=== PATIENT | male | born 1955 | race Hispanic/Latino ===

== ENCOUNTER 2017-10-17 15:12 | Emergency (ER) | payer MEDICAID ==
[~2017-10-17 15:12] MED LIST: ALLO100T PO; ASPI-555 PO; ATOR40TA69 PO; BUDE10.2 IH; ESOM20CA31 PO; FLUT15.88 NS; IPRAHFA IH; LISI2.5T2 PO; METO-408 PO; MONT10TA24 PO; PREG75 PO; RANI300T4 PO; SERT50TA PO; SIME125C81 PO; TRAZ-144 PO
[2017-10-17 16:31] LABS: BASOPHILS % (AUTO) 0.7 % (0.0-5.0); EOSINOPHILS % (AUTO) 2.5 % (0.0-8.0); LYMPHOCYTES % (AUTO) 26.7 % (21.0-51.0); MEAN CORPUSCULAR HEMOGLOBIN 30.3 pg (27.0-33.0); MEAN CORPUSCULAR HGB CONC 34.7 g/dL (32.0-36.0); MEAN CORPUSCULAR VOLUME 87.2 fL (79-99); MONOCYTES % (AUTO) 6.5 % (3.0-13.0); NEUTROPHILS % (AUTO) 63.6 % (40.0-77.0); NUCLEATED RED BLOOD CELLS 0.1 % (0.0-0.19); PLATELET COUNT (AUTO) 137 K/uL (130-400); RED BLOOD CELL COUNT(AUTO) 4.25 MIL/uL (4.50-6.20); RED CELL DISTRIBUTION WIDTH 13.1 % (11.0-15.5); WHITE BLOOD COUNT (AUTO) 5.8 K/uL (4.8-10.8)
[2017-10-17] MEDS ORDERED: ONDANSETRON HCL MDV 20ML 2 MG/ML VIAL ONE (17:07)
[2017-10-17] MEDS ORDERED: MEPERIDINE-PF 25 MG/ML SYG ONE (17:08)
[2017-10-17 17:10] LABS: POTASSIUM 3.9 mmol/L (3.5-5.1)
[2017-10-17 17:14] LABS: ALBUMIN 3.3 g/dL (3.5-5.0); BILIRUBIN,TOTAL 0.4 mg/dL (0.2-1.0); TOTAL PROTEIN, SERUM 7.7 g/dL (6.0-8.3)
[2017-10-17 17:54] LABS: APPEARANCE,URINE Clear (CLEAR); BILIRUBIN,URINE Negative (NEGATIVE); COLOR,URINE Dark Yellow (YELLOW); GLUCOSE, URINE (UA) >=1000 mg/dL (NEGATIVE); KETONES,URINE Negative (NEGATIVE); LEUKOCYTE ESTERASE ,URINE Negative (NEGATIVE); NITRATE,URINE Negative (NEGATIVE); OCCULT BLOOD,URINE Negative (NEGATIVE); PROTEIN,URINE Negative (NEGATIVE)
[2017-10-17] MEDS ORDERED: MAGNESIUM CITRATE 296 ML SOLUTION ONE (18:01)
[2017-10-17] MEDS ORDERED: BISACODYL 10 MG SUPP.RECT RC ONE (18:01)
[2017-10-17] MEDS ORDERED: LACTULOSE 20 GM/30 ML UDCUP ONE (18:01)
[2017-10-17] MEDS ORDERED: INSULIN HUMULIN R 100 UNIT/ML 3ML ONE (18:02)
[2017-10-17 18:15] LABS: BACTERIA,URINE Rare /HPF (None Seen); MUCUS,URINE Few LPF (None Seen); RBC,URINE 0-1 /HPF (0-1); SQUAMOUS EPITHELIAL CELL,UR Rare /HPF (0-2); WBC,URINE 0-1 /HPF (0-1)
== END 2017-10-17 20:08 | disposition home or self-care (01) ==
LOC: EDH 15:12
DX: K59.00 Constipation, unspecified (principal); R50.9 Fever, unspecified; R11.0 Nausea; I10 Essential (primary) hypertension; E78.5 Hyperlipidemia, unspecified; I25.10 Atherosclerotic heart disease of native coronary artery without angina pectoris; Z88.6 Allergy status to analgesic agent; Z72.0 Tobacco use
CPT/HCPCS: 36415; 74021; 80053; 81001; 82150; 82948; 83690; 85025; 93005; 96374; 96375; 99285; J1815; J2175

== ENCOUNTER 2018-04-14 10:51 | Inpatient (IN) | payer MEDICAID ==
[~2018-04-14] VITALS: Ht 177.8 cm; Wt 113.9 kg
[~2018-04-14 10:51] MED LIST changes: +FLUT15.88 NASAL; -FLUT15.88 NS; -TRAZ-144 PO; +TRAZ-185 PO
[2018-04-14] MEDS ORDERED: SODIUM CHLORIDE 0.9% 1000ML 1,000 ML IV ONE ×2 (11:06→13:16)
[2018-04-14 11:14] LABS: BASOPHILS % (AUTO) 1.5 % (0.0-5.0); EOSINOPHILS % (AUTO) 1.8 % (0.0-8.0); HEMATOCRIT 34.2 % (42-54); MEAN CORPUSCULAR HEMOGLOBIN 31.5 pg (27.0-33.0); MEAN CORPUSCULAR HGB CONC 34.6 g/dL (32.0-36.0); MEAN CORPUSCULAR VOLUME 91.2 fL (79-99); MONOCYTES % (AUTO) 4.8 % (3.0-13.0); NEUTROPHILS % (AUTO) 60.9 % (40.0-77.0); NUCLEATED RED BLOOD CELLS 0.1 % (0.0-0.19); PLATELET COUNT (AUTO) 184 K/uL (130-400); RED BLOOD CELL COUNT(AUTO) 3.75 MIL/uL (4.50-6.20); RED CELL DISTRIBUTION WIDTH 13.7 % (11.0-15.5); WHITE BLOOD COUNT (AUTO) 10.1 K/uL (4.8-10.8)
[2018-04-14 11:23] LABS: BILIRUBIN,TOTAL 0.8 mg/dL (0.2-1.0); CREATININE 1.3 mg/dL (0.5-1.5); POTASSIUM 4.8 mmol/L (3.5-5.1); TOTAL PROTEIN, SERUM 6.5 g/dL (6.0-8.3)
[2018-04-14 11:28] LABS: INR 0.96 (0.85-1.15); PARTIAL THROMBOPLASTIN TIME 22.4 SEC (26.3-35.5); PROTHROMBIN TIME 10.1 SEC (9.6-11.6)
[2018-04-14] MEDS ORDERED: ONDANSETRON HCL 4 MG/2 ML VIAL ONE ×2 (11:28→13:05)
[2018-04-14] MEDS ORDERED: FENTANYL CITRATE PF 50 MCG/1 ML 2ML VIAL ONE ×2 (11:38→13:06)
[2018-04-14] MEDS ORDERED: IOHEXOL-350 75 ML VIAL IV ONE (12:08)
[2018-04-14] MEDS ORDERED: INSULIN HUMULIN R 100 UNIT/ML 3ML ONE (12:44)
[2018-04-14] MEDS ORDERED: ACETAMINOPHEN 325 MG TAB PO PRN ×2 (14:00)
[2018-04-14] MEDS ORDERED: ONDANSETRON HCL MDV 20ML 2 MG/ML VIAL IVP PRN (14:00)
[2018-04-14 15:59] VITALS: BP 121/75
[2018-04-14] MEDS: HYDROMORPHONE 1 MG/1 ML AMP IVP PRN ×2 (17:15→21:16)
[2018-04-14] MEDS: SODIUM CHLORIDE 0.9% 1000ML 1,000 ML IV SCH ×2 (17:15→22:00)
[2018-04-14] MEDS ORDERED: LISI10TA7 PO (17:53)
[2018-04-14] MEDS ORDERED: ROPI1TAB11 PO (17:53)
[2018-04-14] MEDS ORDERED: ACET650T9 PO (17:53)
[2018-04-14] MEDS ORDERED: METO-391 PO (17:53)
[2018-04-14] MEDS ORDERED: BUDE10.2 IH (17:53)
[2018-04-14] MEDS ORDERED: TERB250T51 PO (17:53)
[2018-04-14] MEDS ORDERED: PROB500T26 PO (17:53)
[2018-04-14] MEDS ORDERED: GABA-531 PO (17:53)
[2018-04-14] MEDS ORDERED: INDO50CA12 PO (17:53)
[2018-04-14] MEDS ORDERED: IPRAHFA IH (17:53)
[2018-04-14] MEDS ORDERED: CLOP75TA32 PO (17:53)
[2018-04-14 19:27] VITALS: BP 127/77
[2018-04-14 23:32] VITALS: BP 127/76
[2018-04-15] MEDS: SODIUM CHLORIDE 0.9% 1000ML 1,000 ML IV SCH ×2 (00:07→09:21)
[2018-04-15] MEDS: HYDROMORPHONE 1 MG/1 ML AMP IVP PRN ×5 (00:22→20:45)
[2018-04-15 04:09] VITALS: BP 117/78
[2018-04-15 07:00] VITALS: BP 125/57
[2018-04-15] MEDS ORDERED: ACETAMINOPHEN EXTENDED RELEASE 650 MG TABLET PO PRN (10:45)
[2018-04-15 11:00] VITALS: BP 116/55
[2018-04-15] MEDS: IPRATROPIUM/ALBUTEROL SULFATE 3 ML SOLUTION IH SCH ×2 (11:58→19:11)
[2018-04-15] MEDS ORDERED: IPRATROPIUM 0.5 MG/2.5 ML INH IH SCH (12:00)
[2018-04-15] MEDS ORDERED: ALBUTEROL SULFATE 0.083% 2.5 MG/3 ML INH IH SCH (12:00)
[2018-04-15] MEDS: INSULIN HUMULIN R 100 UNIT/ML 3ML SQ SCH ×3 (12:24→20:57)
[2018-04-15 16:00] VITALS: BP 110/62
[2018-04-15 19:18] VITALS: BP 132/75
[2018-04-15] MEDS: BUDESONIDE 0.5 MG/2 ML INH IH SCH (19:34)
[2018-04-15] MEDS: METOPROLOL TARTRATE 25 MG TAB PO SCH (20:21)
[2018-04-15] MEDS: ROPINIROLE HCL 1 MG TABLET PO SCH (20:21)
[2018-04-15] MEDS: PREGABALIN 75 MG CAPSULE PO SCH (20:21)
[2018-04-15] MEDS: ATORVASTATIN CALCIUM 40 MG TABLET PO SCH (20:21)
[2018-04-15] MEDS: TRAZODONE HCL 50 MG TAB PO SCH (20:21)
[2018-04-15] MEDS: MONTELUKAST SODIUM 10 MG TAB PO SCH (20:21)
[2018-04-15] MEDS: FLUTICASONE PROPIONATE 50MCG/SPRAY 16 GM BOTTLE NS SCH (20:39)
[2018-04-15 23:42] VITALS: BP 114/68
[2018-04-16] MEDS: IPRATROPIUM/ALBUTEROL SULFATE 3 ML SOLUTION IH SCH ×5 (01:17→23:50)
[2018-04-16] MEDS: HYDROMORPHONE 1 MG/1 ML AMP IVP PRN ×2 (02:27→20:03)
[2018-04-16 04:27] LABS: MEAN CORPUSCULAR HEMOGLOBIN 31.4 pg (27.0-33.0); MEAN CORPUSCULAR HGB CONC 34.5 g/dL (32.0-36.0); PLATELET COUNT (AUTO) 88 K/uL (130-400); RED BLOOD CELL COUNT(AUTO) 2.29 MIL/uL (4.50-6.20); WHITE BLOOD COUNT (AUTO) 5.1 K/uL (4.8-10.8)
[2018-04-16 04:35] LABS: HEMATOCRIT 20.8 % (42-54)
[2018-04-16 04:37] VITALS: BP 108/48
[2018-04-16 04:43] LABS: CREATININE 0.8 mg/dL (0.5-1.5); PHOSPHORUS 2.2 mg/dL (2.5-4.9); POTASSIUM 3.6 mmol/L (3.5-5.1)
[2018-04-16 05:02] LABS: BAND NEUTROPHILS % (MANUAL) 2 % (0-2); LYMPHOCYTES % (MANUAL) 10 % (22-44); MAN.DIFF COMMENT-IMPRESSION MANUAL DIFFERENTIAL; MONOCYTES % (MANUAL) 6 % (2-9); PLATELET MORPHOLOGY COMMENT DECREASED; SEGMENTED NEUTROPHILS % 82 % (40-70)
[2018-04-16] MEDS: INSULIN HUMULIN R 100 UNIT/ML 3ML SQ SCH ×4 (06:27→20:31)
[2018-04-16 07:00] VITALS: BP 125/60
[2018-04-16] MEDS: BUDESONIDE 0.5 MG/2 ML INH IH SCH ×2 (07:01→19:19)
[2018-04-16 07:09] LABS: MEAN CORPUSCULAR HEMOGLOBIN 31.2 pg (27.0-33.0); MEAN CORPUSCULAR HGB CONC 34.6 g/dL (32.0-36.0); MEAN CORPUSCULAR VOLUME 90.1 fL (79-99); PLATELET COUNT (AUTO) 90 K/uL (130-400); RED BLOOD CELL COUNT(AUTO) 2.27 MIL/uL (4.50-6.20); RED CELL DISTRIBUTION WIDTH 13.9 % (11.0-15.5); WHITE BLOOD COUNT (AUTO) 4.6 K/uL (4.8-10.8)
[2018-04-16 07:13] LABS: HEMATOCRIT 20.4 % (42-54)
[2018-04-16 07:20] LABS: INR 0.93 (0.85-1.15); PARTIAL THROMBOPLASTIN TIME 28.9 SEC (26.3-35.5); PROTHROMBIN TIME 9.8 SEC (9.6-11.6)
[2018-04-16] MEDS ORDERED: ASPIRIN 81MG TAB.CHEW PO SCH (08:00)
[2018-04-16] MEDS: PREGABALIN 75 MG CAPSULE PO SCH ×2 (08:20→20:02)
[2018-04-16] MEDS: SERTRALINE HCL 50 MG TABLET PO SCH (08:20)
[2018-04-16] MEDS: LACTULOSE 20 GM/30 ML UDCUP PO PRN (08:20)
[2018-04-16] MEDS: METOPROLOL TARTRATE 25 MG TAB PO SCH ×2 (08:20→20:03)
[2018-04-16] MEDS: PANTOPRAZOLE SODIUM 40 MG TABLET.DR PO SCH (08:20)
[2018-04-16] MEDS: LISINOPRIL 10 MG TABLET PO SCH (08:20)
[2018-04-16] MEDS: **HM** TERBINAFINE 250MG PO SCH (08:22)
[2018-04-16 11:00] VITALS: BP 113/59
[2018-04-16] MEDS ORDERED: IOHEXOL-350 75 ML VIAL IV ONE (14:56)
[2018-04-16 16:00] VITALS: BP 119/67
[2018-04-16 19:28] VITALS: BP 119/61
[2018-04-16] MEDS: MONTELUKAST SODIUM 10 MG TAB PO SCH (20:02)
[2018-04-16] MEDS: ROPINIROLE HCL 1 MG TABLET PO SCH (20:02)
[2018-04-16] MEDS: TRAZODONE HCL 50 MG TAB PO SCH (20:03)
[2018-04-16] MEDS: ATORVASTATIN CALCIUM 40 MG TABLET PO SCH (20:03)
[2018-04-16] MEDS: FLUTICASONE PROPIONATE 50MCG/SPRAY 16 GM BOTTLE NS SCH (20:17)
[2018-04-16 23:42] VITALS: BP 100/61
[2018-04-17] MEDS: HYDROMORPHONE 1 MG/1 ML AMP IVP PRN ×5 (00:56→23:35)
[2018-04-17 03:31] LABS: MEAN CORPUSCULAR HEMOGLOBIN 31.1 pg (27.0-33.0); MEAN CORPUSCULAR HGB CONC 34.3 g/dL (32.0-36.0); MEAN CORPUSCULAR VOLUME 90.7 fL (79-99); NUCLEATED RED BLOOD CELLS 0.2 % (0.0-0.19); PLATELET COUNT (AUTO) 83 K/uL (130-400); RED BLOOD CELL COUNT(AUTO) 2.24 MIL/uL (4.50-6.20); RED CELL DISTRIBUTION WIDTH 13.8 % (11.0-15.5); WHITE BLOOD COUNT (AUTO) 5.3 K/uL (4.8-10.8)
[2018-04-17 03:40] LABS: HEMATOCRIT 20.3 % (42-54)
[2018-04-17 04:00] VITALS: BP 115/65
[2018-04-17 04:00] LABS: BAND NEUTROPHILS % (MANUAL) 2 % (0-2); EOSINOPHILS % (MANUAL) 2 % (1-6); LYMPHOCYTES % (MANUAL) 10 % (22-44); MONOCYTES % (MANUAL) 6 % (2-9); SEGMENTED NEUTROPHILS % 80 % (40-70)
[2018-04-17 04:01] LABS: MAN.DIFF COMMENT-IMPRESSION MANUAL DIFFERENTIAL; PLATELET MORPHOLOGY COMMENT DECREASED
[2018-04-17] MEDS: IPRATROPIUM/ALBUTEROL SULFATE 3 ML SOLUTION IH SCH ×4 (05:30→23:17)
[2018-04-17] MEDS: BUDESONIDE 0.5 MG/2 ML INH IH SCH ×2 (05:31→18:30)
[2018-04-17] MEDS: INSULIN HUMULIN R 100 UNIT/ML 3ML SQ SCH ×4 (06:30→22:14)
[2018-04-17 07:00] VITALS: BP 121/66
[2018-04-17] MEDS: **HM** TERBINAFINE 250MG PO SCH (09:00)
[2018-04-17] MEDS: LISINOPRIL 10 MG TABLET PO SCH (09:11)
[2018-04-17] MEDS: PREGABALIN 75 MG CAPSULE PO SCH ×2 (09:11→20:48)
[2018-04-17] MEDS: METOPROLOL TARTRATE 25 MG TAB PO SCH ×2 (09:11→20:48)
[2018-04-17] MEDS: SERTRALINE HCL 50 MG TABLET PO SCH (09:12)
[2018-04-17] MEDS: PANTOPRAZOLE SODIUM 40 MG TABLET.DR PO SCH (09:12)
[2018-04-17 11:00] VITALS: BP 107/61
[2018-04-17] MEDS ORDERED: COMPOUND IV MISC 1 EACH IVSOLN MISC PRN (11:30)
[2018-04-17] MEDS: LACTULOSE 20 GM/30 ML UDCUP PO PRN (14:46)
[2018-04-17 16:00] VITALS: BP 121/68
[2018-04-17 20:00] VITALS: BP 120/68
[2018-04-17] MEDS: TRAZODONE HCL 50 MG TAB PO SCH (20:48)
[2018-04-17] MEDS: ATORVASTATIN CALCIUM 40 MG TABLET PO SCH (20:48)
[2018-04-17] MEDS: MONTELUKAST SODIUM 10 MG TAB PO SCH (20:48)
[2018-04-17] MEDS: FLUTICASONE PROPIONATE 50MCG/SPRAY 16 GM BOTTLE NS SCH (20:56)
[2018-04-17] MEDS: ROPINIROLE HCL 1 MG TABLET PO SCH (20:56)
[2018-04-17 23:00] VITALS: BP 128/71
[2018-04-18 03:00] VITALS: BP 107/58
[2018-04-18 03:36] LABS: MEAN CORPUSCULAR HEMOGLOBIN 31.2 pg (27.0-33.0); MEAN CORPUSCULAR HGB CONC 34.4 g/dL (32.0-36.0); MEAN CORPUSCULAR VOLUME 90.9 fL (79-99); NUCLEATED RED BLOOD CELLS 0.2 % (0.0-0.19); PLATELET COUNT (AUTO) 111 K/uL (130-400); RED BLOOD CELL COUNT(AUTO) 2.26 MIL/uL (4.50-6.20); WHITE BLOOD COUNT (AUTO) 4.7 K/uL (4.8-10.8)
[2018-04-18 03:38] LABS: HEMATOCRIT 20.6 % (42-54)
[2018-04-18] MEDS: HYDROMORPHONE 1 MG/1 ML AMP IVP PRN (03:46)
[2018-04-18 03:51] LABS: BAND NEUTROPHILS % (MANUAL) 12 % (0-2); LYMPHOCYTES % (MANUAL) 20 % (22-44); MAN.DIFF COMMENT-IMPRESSION MANUAL DIFFERENTIAL; MONOCYTES % (MANUAL) 4 % (2-9); PLATELET MORPHOLOGY COMMENT SLIGHTLY DECREASED; SEGMENTED NEUTROPHILS % 64 % (40-70)
[2018-04-18] MEDS: INSULIN HUMULIN R 100 UNIT/ML 3ML SQ SCH (05:36)
[2018-04-18] MEDS: BUDESONIDE 0.5 MG/2 ML INH IH SCH (06:01)
[2018-04-18] MEDS: IPRATROPIUM/ALBUTEROL SULFATE 3 ML SOLUTION IH SCH (06:01)
[2018-04-18 07:00] VITALS: BP 107/58
[2018-04-18] MEDS: SERTRALINE HCL 50 MG TABLET PO SCH (08:36)
[2018-04-18] MEDS: PREGABALIN 75 MG CAPSULE PO SCH (08:36)
[2018-04-18] MEDS: METOPROLOL TARTRATE 25 MG TAB PO SCH (08:36)
[2018-04-18] MEDS: LISINOPRIL 10 MG TABLET PO SCH (08:36)
[2018-04-18] MEDS: PANTOPRAZOLE SODIUM 40 MG TABLET.DR PO SCH (08:36)
[2018-04-18] MEDS ORDERED: TRAMADOL HCL 50 MG TABLET PO SCH (09:00)
[2018-04-18] MEDS ORDERED: IRON SUCROSE COMPLEX 100 MG in SODIUM CHLORIDE 0.9% 50 ML IV SCH (09:00)
[2018-04-26] MEDS ORDERED: IPRATROPIUM/ALBUTEROL SULFATE 3 ML SOLUTION IH ONE (21:16)
== END 2018-04-18 09:50 | disposition home or self-care (01) | DRG 663 ==
LOC: EDH 10:51 → EDHIP 10:52 → 2DH 15:49
PROVIDERS: ADMIT Internal Medicine Nephrology; ATTEND Internal Medicine Nephrology
DX: S36.039A Unspecified laceration of spleen, initial encounter (principal); S36.113A Laceration of liver, unspecified degree, initial encounter; E11.65 Type 2 diabetes mellitus with hyperglycemia; I25.10 Atherosclerotic heart disease of native coronary artery without angina pectoris; I10 Essential (primary) hypertension; E78.00 Pure hypercholesterolemia, unspecified; J44.9 Chronic obstructive pulmonary disease, unspecified; Z82.49 Family history of ischemic heart disease and other diseases of the circulatory system; D64.9 Anemia, unspecified
CPT/HCPCS: 36415; 71045; 73030; 74177; 74178; 80048; 80053; 82550; 82948; 83690; 84100; 84484; 85025; 85027; 85610; 85730; 86850; 86900; 86901; 93005; 94640; 94664; 97039; 99291; A6250; J1170; J1756; J1815; J2405; J3010; J7030; Q9967

== ENCOUNTER 2019-05-18 19:33 | Observation (INO) | payer MEDICAID, OTHER ==
[~2019-05-18] VITALS: Ht 177.8 cm; Wt 114.8 kg
[~2019-05-18 19:33] MED LIST changes: +ACET650T9 PO; -ALLO100T PO; +CLOP75TA32 PO; +FLUT15.845 NASAL; -FLUT15.88 NASAL; +GABA-531 PO; +LISI10TA7 PO; -LISI2.5T2 PO; +METO-391 PO; -METO-408 PO; -RANI300T4 PO; +ROPI1TAB11 PO; -SIME125C81 PO; +TERB250T51 PO
[2019-05-18] MEDS ORDERED: NITROGLYCERIN 0.4 MG SL TAB SL ONE (19:52)
[2019-05-18 20:02] LABS: BASOPHILS % (AUTO) 1.6 % (0.0-5.0); EOSINOPHILS % (AUTO) 2.2 % (0.0-8.0); HEMATOCRIT 38.5 % (42-54); LYMPHOCYTES % (AUTO) 29.8 % (21.0-51.0); MEAN CORPUSCULAR HGB CONC 36.9 g/dL (32.0-36.0); MEAN CORPUSCULAR VOLUME 91.9 fL (79-99); MONOCYTES % (AUTO) 4.8 % (3.0-13.0); NEUTROPHILS % (AUTO) 61.6 % (40.0-77.0); PLATELET COUNT (AUTO) 140 K/uL (130-400); RED BLOOD CELL COUNT(AUTO) 4.19 MIL/uL (4.50-6.20); RED CELL DISTRIBUTION WIDTH 13.2 % (11.0-15.5); WHITE BLOOD COUNT (AUTO) 6.6 K/uL (4.8-10.8)
[2019-05-18 20:17] LABS: PARTIAL THROMBOPLASTIN TIME 29.2 SEC (26.3-35.5)
[2019-05-18 20:26] LABS: B-TYPE NATRIURETIC PEPTIDE 25 pg/mL (0-100)
[2019-05-18 20:27] LABS: ALBUMIN 3.3 g/dL (3.5-5.0); BILIRUBIN,TOTAL 0.6 mg/dL (0.2-1.0); POTASSIUM 4.1 mmol/L (3.5-5.1)
[2019-05-18 21:02] LABS: CREATININE 0.7 mg/dL (0.5-1.5); TOTAL PROTEIN, SERUM 6.5 g/dL (6.0-8.3)
[2019-05-18] MEDS ORDERED: ONDANSETRON HCL 4 MG/2 ML VIAL ONE (21:43)
[2019-05-18] MEDS ORDERED: MORPHINE SULFATE 4 MG/1ML SYG ONE (21:43)
[2019-05-19 01:30] VITALS: BP 137/79
[2019-05-19] MEDS ORDERED: GLYB5TAB8 PO (01:48)
[2019-05-19] MEDS ORDERED: LISI-613 PO (01:48)
[2019-05-19] MEDS ORDERED: NITR0.4T50 SL (01:48)
[2019-05-19] MEDS ORDERED: TRAZ-185 PO (01:48)
[2019-05-19] MEDS ORDERED: GABA-533 PO (01:48)
[2019-05-19 04:21] VITALS: BP 136/76
[2019-05-19 06:38] LABS: CREATINE KINASE, TOTAL 32 U/L (21-232); MYOGLOBIN 33 ng/mL (10-92); TROPONIN I < 0.04 ng/mL (0.00-0.06)
[2019-05-19 08:00] VITALS: BP 133/80
[2019-05-19 11:00] VITALS: BP 139/79
[2019-05-19] MEDS ORDERED: REGADENOSON 0.4 MG/5 ML PF SYG IVP SCH (11:00)
[2019-05-19] MEDS ORDERED: NITROGLYCERIN 0.4 MG SL TAB SL SCH (13:30)
[2019-05-19] MEDS ORDERED: ACETAMINOPHEN EXTENDED RELEASE 650 MG TABLET PO PRN (13:30)
[2019-05-19] MEDS ORDERED: GABAPENTIN 100 MG CAPSULE PO SCH (14:00)
[2019-05-19 16:00] VITALS: BP 132/82
[2019-05-19] MEDS ORDERED: IPRATROPIUM 0.5 MG/2.5 ML INH IH SCH (18:00)
[2019-05-19] MEDS ORDERED: TRAZODONE HCL 50 MG TAB PO SCH (21:00)
[2019-05-19] MEDS ORDERED: METOPROLOL TARTRATE 25 MG TAB PO SCH (21:00)
[2019-05-20] MEDS ORDERED: SERTRALINE HCL 50 MG TABLET PO SCH (09:00)
[2019-05-20] MEDS ORDERED: PANTOPRAZOLE SODIUM 40 MG TABLET.DR PO SCH (09:00)
[2019-05-20] MEDS ORDERED: IPRATROPIUM BROMIDE IH SCH (09:00)
[2019-05-20] MEDS ORDERED: CLOPIDOGREL BISULFATE 75 MG TAB PO SCH (09:00)
[2019-05-20] MEDS ORDERED: LISINOPRIL 20 MG TABLET PO SCH (09:00)
== END 2019-05-19 18:55 | disposition home or self-care (01) ==
LOC: EDH 19:33 → EDHIP 19:34 → 4DH 05-19 01:20
PROVIDERS: ADMIT Internal Medicine Nephrology; ATTEND Internal Medicine Nephrology
DX: I25.110 Atherosclerotic heart disease of native coronary artery with unstable angina pectoris (principal); R07.89 Other chest pain; E11.9 Type 2 diabetes mellitus without complications; I10 Essential (primary) hypertension; E78.00 Pure hypercholesterolemia, unspecified; E78.5 Hyperlipidemia, unspecified; E87.70 Fluid overload, unspecified; F17.200 Nicotine dependence, unspecified, uncomplicated; Z95.1 Presence of aortocoronary bypass graft; Z79.82 Long term (current) use of aspirin; Z79.01 Long term (current) use of anticoagulants; Z79.899 Other long term (current) drug therapy; Z88.6 Allergy status to analgesic agent; Z88.8 Allergy status to other drugs, medicaments and biological substances
CPT/HCPCS: 36415 ×2; 71045; 78452; 80053; 82550 ×2; 82948 ×3; 83874; 83880; 84484 ×2; 85025; 85610; 85730; 93005; 93017; 94640; 94664; 99284; A9500 ×2; G0378 ×19; J2270; J2405; J2785; 96374

== ENCOUNTER 2019-07-12 17:53 | Inpatient (IN) | payer SELFPAY ==
[~2019-07-12] VITALS: Ht 177.8 cm; Wt 108.5 kg
[~2019-07-12 17:53] MED LIST changes: -GABA-531 PO; +GABA-533 PO; +GLYB5TAB8 PO; +LISI-613 PO; -LISI10TA7 PO; +NITR0.4T50 SL; -PREG75 PO; -ROPI1TAB11 PO; -TERB250T51 PO
[2019-07-12 18:44] LABS: APPEARANCE,URINE Clear (CLEAR); BILIRUBIN,URINE Negative (NEGATIVE); COLOR,URINE Yellow (YELLOW); GLUCOSE, URINE (UA) >=1000 mg/dL (NEGATIVE); KETONES,URINE Negative (NEGATIVE); LEUKOCYTE ESTERASE ,URINE Negative (NEGATIVE); NITRATE,URINE Negative (NEGATIVE); OCCULT BLOOD,URINE Negative (NEGATIVE); PROTEIN,URINE Negative (NEGATIVE); UROBILINOGEN,URINE 0.2 mg/dL (0.2-1.0)
[2019-07-12 18:49] LABS: BASOPHILS % (AUTO) 0.8 % (0.0-5.0); EOSINOPHILS % (AUTO) 1.6 % (0.0-8.0); HEMATOCRIT 37.5 % (42-54); MONOCYTES % (AUTO) 7.6 % (3.0-13.0); NEUTROPHILS % (AUTO) 66.2 % (40.0-77.0); PLATELET COUNT (AUTO) 148 K/uL (130-400); RED BLOOD CELL COUNT(AUTO) 4.26 MIL/uL (4.50-6.20); RED CELL DISTRIBUTION WIDTH 12.8 % (11.0-15.5); WHITE BLOOD COUNT (AUTO) 4.9 K/uL (4.8-10.8)
[2019-07-12 18:51] LABS: AMPHET/METH SCREEN,URINE NEGATIVE (NEGATIVE); BARBITURATE SCREEN, URINE NEGATIVE (NEGATIVE); BENZODIAZEPINES SCREEN,URINE NEGATIVE (NEGATIVE); CANNABINOID SCREEN,URINE NEGATIVE (NEGATIVE); COCAINE SCREEN,URINE POSITIVE (NEGATIVE); OPIATE SCREEN,URINE NEGATIVE (NEGATIVE); PHENCYCLIDINE SCREEN,URINE NEGATIVE (NEGATIVE)
[2019-07-12 19:03] LABS: BACTERIA,URINE None Seen /HPF (None Seen); MUCUS,URINE Rare LPF (None Seen); RBC,URINE 0-1 /HPF (0-1); SQUAMOUS EPITHELIAL CELL,UR 0-2 /HPF (0-2); WBC,URINE 0-1 /HPF (0-1)
[2019-07-12 19:08] LABS: B-TYPE NATRIURETIC PEPTIDE 10 pg/mL (0-100)
[2019-07-12 19:10] LABS: ALBUMIN 3.1 g/dL (3.5-5.0); BILIRUBIN,TOTAL 1.2 mg/dL (0.2-1.0)
[2019-07-12] MEDS ORDERED: SODIUM CHLORIDE 0.9% 1000ML 1,000 ML IV ONE ×2 (19:10→19:59)
[2019-07-12] MEDS ORDERED: INSULIN HUMULIN R 100 UNIT/ML 3ML ONE ×2 (19:10→22:05)
[2019-07-12 19:28] LABS: POTASSIUM 6.3 mmol/L (3.5-5.1)
[2019-07-12 19:51] LABS: MEAN CORPUSCULAR HEMOGLOBIN 29.7 pg (27.0-33.0); MEAN CORPUSCULAR HGB CONC 33.6 g/dL (32.0-36.0)
[2019-07-12 19:59] LABS: TOTAL PROTEIN, SERUM 6.4 g/dL (6.0-8.3)
[2019-07-12 21:15] LABS: POTASSIUM 5.7 mmol/L (3.5-5.1)
[2019-07-12 22:45] LABS: PROTHROMBIN TIME 11.1 SEC (9.6-11.6)
[2019-07-12 22:46] LABS: INR 0.94 (0.85-1.15); PARTIAL THROMBOPLASTIN TIME 32.3 SEC (26.3-35.5)
[2019-07-13] VITALS (7 sets, daily range): BP systolic 114–143; BP diastolic 60–87
[2019-07-13] MEDS ORDERED: ONDANSETRON HCL 4 MG/2 ML VIAL IVP PRN (05:45)
[2019-07-13] MEDS: LACTATED RINGERS 1000ML 1,000 ML IV SCH ×3 (06:07→19:05)
[2019-07-13] MEDS: ACETAMINOPHEN 325 MG TAB PO PRN ×2 (06:11→13:04)
[2019-07-13 06:58] LABS: CREATINE KINASE, TOTAL 44 U/L (21-232); MYOGLOBIN 26 ng/mL (10-92); TROPONIN I < 0.04 ng/mL (0.00-0.06)
[2019-07-13 07:40] LABS: ALBUMIN 2.8 g/dL (3.5-5.0); BILIRUBIN,TOTAL 0.8 mg/dL (0.2-1.0)
[2019-07-13 08:35] LABS: CREATININE 0.6 mg/dL (0.5-1.5); TOTAL PROTEIN, SERUM 5.6 g/dL (6.0-8.3)
[2019-07-13] MEDS: ASPIRIN 81MG TAB.CHEW PO SCH (08:46)
[2019-07-13] MEDS: PANTOPRAZOLE SODIUM 40 MG TABLET.DR PO SCH (08:47)
[2019-07-13 10:44] LABS: CREATINE KINASE, TOTAL 42 U/L (21-232); MYOGLOBIN 31 ng/mL (10-92); TROPONIN I < 0.04 ng/mL (0.00-0.06)
--- NOTE | 2019-07-13 14:46 | NUR ---
DC PLAN VISITED WITH PATIENT. PATIENT LIVES WITH SPOUSE. INDEPENDENT ABLE TO PERFORM ADL'S. PATIENT HAS NO SERVICES OR DME'S. FEELS SAFE TO RETURN HOME. GAVE PATIENT LOW INCOME PACKET [facility] CLINICS AND FOR MEDICATIONS. ACCORDING TO PATIENT HE WILL GET INSURANCE ON THE . PATIENT CURRENTLY HAS DISABILITY CHECK WHICH MAKES HIM OVER INCOME FOR MEDICAID BUT HE LOOSES A PORTION TO BACK CHILD SUPPORT. Addendum: 07/13/19 at 1447 by EMMY WISE RN CM Amended: Links added.
--- NOTE | 2019-07-13 22:00 | NUR ---
elevated blood glucose paged marina mcleod automotive sales professional for dr. jordan patients glucose in >300s all day and no coverage ordered shavon mcleod returned call but call dropped before orders received will repage
--- NOTE | 2019-07-13 22:52 | NUR ---
dr shavon mcleod paged for 3rd time since call drop answering service repaged, sent text message and tried connecting call directly to shavon mcleod cell no response
[2019-07-14] MEDS: LACTATED RINGERS 1000ML 1,000 ML IV SCH ×2 (01:45→08:25)
[2019-07-14 03:00] VITALS: BP 120/66
[2019-07-14 04:53] LABS: HEMATOCRIT 37.5 % (42-54); MEAN CORPUSCULAR HEMOGLOBIN 32.5 pg (27.0-33.0); MEAN CORPUSCULAR HGB CONC 35.7 g/dL (32.0-36.0); PLATELET COUNT (AUTO) 110 K/uL (130-400); RED BLOOD CELL COUNT(AUTO) 4.12 MIL/uL (4.50-6.20); RED CELL DISTRIBUTION WIDTH 12.7 % (11.0-15.5); WHITE BLOOD COUNT (AUTO) 5.1 K/uL (4.8-10.8)
[2019-07-14 05:20] LABS: POTASSIUM 3.9 mmol/L (3.5-5.1)
[2019-07-14 05:47] LABS: HEMOGLOBIN A1C 13.4 % (4.0-6.0)
[2019-07-14 06:00] LABS: CREATININE 0.6 mg/dL (0.5-1.5)
[2019-07-14] MEDS: INSULIN HUMULIN R 100 UNIT/ML 3ML SQ SCH ×2 (07:30→07:37)
[2019-07-14] MEDS: PANTOPRAZOLE SODIUM 40 MG TABLET.DR PO SCH (07:46)
[2019-07-14] MEDS: ASPIRIN 81MG TAB.CHEW PO SCH (07:46)
--- NOTE | 2019-07-14 07:50 | NUR ---
ASSESSMENT PT IS AAOX3 DENIES CP DENIES SOB DENIES AT THIS TIME RESTING IN BED. VISITOR IS AT BEDSIDE, CALL LIGHT WITHIN REACH. STATES HE WANTS TO GO HOME AMA, AMA PAPER PROVIDED FOR HIM TO SIGN. HE NOW STATES HE WILL WAIT TILL LATER TO SEE WHAT THE DOCTOR SAYS WHEN HE ROUNDS. WILL NOT LEAVE AMA OF YET. VISITOR REMAINS AT BEDSIDE. CALL LIGHT WITHIN REACH.
[2019-07-14 08:12] VITALS: BP 150/82
--- NOTE | 2019-07-14 11:50 | NUR ---
MD ROUNDS / AMA DR Annemarie MURILLO ROUNDED, SAW PATIENT. PATIENT STATES HE WANTS TO LEAVE AMA, DR Annemarie MURILLO TOLD PATIENT THAT'S HIS CHOICE. PATIENT AGREED TO LEAVE AMA. PIV REMOVED CATH TIP INTACT, TELE PACK REMOVED. AMA FORM SIGNED. DR Annemarie MURILLO SIGNED AMA FORM WELL. PATIENT AMBULATED DOWNSTAIRS WITH VISITOR.
[2019-07-14 11:51] VITALS: BP 124/69
== END 2019-07-14 12:23 | disposition left against medical advice (07) | DRG 313 ==
LOC: EDH 17:53 → EDHIP 17:54 → 2AH 07-13 00:09
PROVIDERS: ADMIT Internal Medicine Nephrology; ATTEND Internal Medicine Nephrology
DX: R07.89 Other chest pain (principal); E87.1 Hypo-osmolality and hyponatremia; E11.9 Type 2 diabetes mellitus without complications; E78.5 Hyperlipidemia, unspecified; F14.10 Cocaine abuse, uncomplicated; I10 Essential (primary) hypertension; M19.90 Unspecified osteoarthritis, unspecified site; E87.5 Hyperkalemia; I25.10 Atherosclerotic heart disease of native coronary artery without angina pectoris; Z87.891 Personal history of nicotine dependence; Z90.81 Acquired absence of spleen; Z91.19 Patient's noncompliance with other medical treatment and regimen; Z95.1 Presence of aortocoronary bypass graft; Z53.29 Procedure and treatment not carried out because of patient's decision for other reasons
CPT/HCPCS: 36415; 70450; 72125; 74176; 76700; 80048; 80053; 80061; 80305; 81001; 82010; 82550; 82948; 83036; 83874; 83880; 84484; 85025; 85027; 85610; 85730; 93005; 99291; G0378; J1815; J7030; J7120

== ENCOUNTER 2019-11-08 17:07 | Emergency (ER) | payer OTHER ==
[~2019-11-08 17:07] MED LIST changes: -MONT10TA24 PO; +MONT10TA26 PO
[2019-11-08 18:05] LABS: BASOPHILS % (AUTO) 0.7 % (0.0-5.0); EOSINOPHILS % (AUTO) 1.9 % (0.0-8.0); HEMATOCRIT 37.8 % (42-54); LYMPHOCYTES % (AUTO) 23.5 % (21.0-51.0); MEAN CORPUSCULAR HEMOGLOBIN 31.7 pg (27.0-33.0); MEAN CORPUSCULAR HGB CONC 35.2 g/dL (32.0-36.0); MONOCYTES % (AUTO) 5.6 % (3.0-13.0); NEUTROPHILS % (AUTO) 67.6 % (40.0-77.0); PLATELET COUNT (AUTO) 142 K/uL (130-400); RED CELL DISTRIBUTION WIDTH 12.8 % (11.0-15.5); WHITE BLOOD COUNT (AUTO) 6.8 K/uL (4.8-10.8)
[2019-11-08 18:16] LABS: CREATININE 0.9 mg/dL (0.5-1.5); POTASSIUM 3.9 mmol/L (3.5-5.1)
[2019-11-08 18:18] LABS: INR 0.88 (0.85-1.15); PROTHROMBIN TIME 9.6 SEC (9.6-11.6)
[2019-11-08 18:20] LABS: ALBUMIN 3.5 g/dL (3.5-5.0); BILIRUBIN,TOTAL 0.4 mg/dL (0.2-1.0); TOTAL PROTEIN, SERUM 7.2 g/dL (6.0-8.3)
[2019-11-08 18:46] LABS: B-TYPE NATRIURETIC PEPTIDE 17 pg/mL (0-100)
== END 2019-11-08 20:53 | disposition home or self-care (01) ==
LOC: EDH 17:07
DX: R07.89 Other chest pain (principal); I25.10 Atherosclerotic heart disease of native coronary artery without angina pectoris; J44.9 Chronic obstructive pulmonary disease, unspecified; E11.9 Type 2 diabetes mellitus without complications; E78.5 Hyperlipidemia, unspecified; I10 Essential (primary) hypertension; Z72.0 Tobacco use; Z88.6 Allergy status to analgesic agent; Z88.8 Allergy status to other drugs, medicaments and biological substances
CPT/HCPCS: 36415; 71045; 80053; 82550; 83880; 84484; 85025; 85610; 85730; 93005

== ENCOUNTER 2019-12-11 16:36 | Emergency (ER) | payer OTHER ==
[2019-12-11 17:49] LABS: BASOPHILS % (AUTO) 0.8 % (0.0-5.0); EOSINOPHILS % (AUTO) 2.4 % (0.0-8.0); HEMATOCRIT 38.3 % (42-54); LYMPHOCYTES % (AUTO) 23.5 % (21.0-51.0); MEAN CORPUSCULAR HEMOGLOBIN 31.3 pg (27.0-33.0); MEAN CORPUSCULAR VOLUME 89.5 fL (79-99); MONOCYTES % (AUTO) 6.5 % (3.0-13.0); NEUTROPHILS % (AUTO) 65.5 % (40.0-77.0); PLATELET COUNT (AUTO) 140 K/uL (130-400); RED BLOOD CELL COUNT(AUTO) 4.28 MIL/uL (4.50-6.20); RED CELL DISTRIBUTION WIDTH 12.8 % (11.0-15.5); WHITE BLOOD COUNT (AUTO) 6.4 K/uL (4.8-10.8)
[2019-12-11 17:54] LABS: APPEARANCE,URINE Clear (CLEAR); BILIRUBIN,URINE Negative (NEGATIVE); COLOR,URINE Yellow (YELLOW); GLUCOSE, URINE (UA) >=1000 mg/dL (NEGATIVE); KETONES,URINE Negative (NEGATIVE); LEUKOCYTE ESTERASE ,URINE Negative (NEGATIVE); NITRATE,URINE Negative (NEGATIVE); OCCULT BLOOD,URINE Negative (NEGATIVE); PH,URINE 5.5 (5.0-8.0); PROTEIN,URINE Negative (NEGATIVE)
[2019-12-11 18:03] LABS: CREATININE 0.8 mg/dL (0.5-1.5); POTASSIUM 3.9 mmol/L (3.5-5.1)
[2019-12-11 18:07] LABS: INR 0.88 (0.85-1.15); PARTIAL THROMBOPLASTIN TIME 28.4 SEC (26.3-35.5); PROTHROMBIN TIME 9.5 SEC (9.6-11.6)
[2019-12-11 18:08] LABS: ALBUMIN 3.8 g/dL (3.5-5.0); BILIRUBIN,TOTAL 0.5 mg/dL (0.2-1.0); TOTAL PROTEIN, SERUM 7.7 g/dL (6.0-8.3)
[2019-12-11 18:14] LABS: BACTERIA,URINE Rare /HPF (None Seen); RBC,URINE 0-1 /HPF (0-1); SQUAMOUS EPITHELIAL CELL,UR Rare /HPF (0-2); WBC,URINE 0-1 /HPF (0-1)
[2019-12-11 18:16] LABS: RAPID GROUP A STREP NEGATIVE (NEGATIVE)
[2019-12-11 18:42] LABS: CREATINE KINASE, TOTAL 43 U/L (21-232)
== END 2019-12-11 19:03 | disposition home or self-care (01) ==
LOC: EDH 16:36
DX: J18.9 Pneumonia, unspecified organism (principal); I25.10 Atherosclerotic heart disease of native coronary artery without angina pectoris; J44.9 Chronic obstructive pulmonary disease, unspecified; E11.9 Type 2 diabetes mellitus without complications; E78.5 Hyperlipidemia, unspecified; I10 Essential (primary) hypertension; Z88.6 Allergy status to analgesic agent; Z88.8 Allergy status to other drugs, medicaments and biological substances; Z87.891 Personal history of nicotine dependence
CPT/HCPCS: 36415; 71045; 80053; 81001; 82550; 84145; 84484; 85025; 85610; 85730; 87040; 87804; 87880; 93005

== ENCOUNTER 2020-02-07 12:04 | Emergency (ER) | payer OTHER ==
[~2020-02-07 12:04] MED LIST changes: -ASPI-555 PO; +ASPI-556 PO
[2020-02-07 15:04] LABS: BASOPHILS % (AUTO) 0.6 % (0.0-5.0); EOSINOPHILS % (AUTO) 0.3 % (0.0-8.0); HEMATOCRIT 41.2 % (42-54); LYMPHOCYTES % (AUTO) 24.7 % (21.0-51.0); MEAN CORPUSCULAR HEMOGLOBIN 30.5 pg (27.0-33.0); MEAN CORPUSCULAR HGB CONC 33.5 g/dL (32.0-36.0); MEAN CORPUSCULAR VOLUME 90.9 fL (79-99); MONOCYTES % (AUTO) 11.5 % (3.0-13.0); PLATELET COUNT (AUTO) 78 K/uL (130-400); RED BLOOD CELL COUNT(AUTO) 4.53 MIL/uL (4.50-6.20); RED CELL DISTRIBUTION WIDTH 13.2 % (11.0-15.5); WHITE BLOOD COUNT (AUTO) 3.5 K/uL (4.8-10.8)
[2020-02-07 15:20] LABS: POTASSIUM 4.1 mmol/L (3.5-5.1)
[2020-02-07 15:22] LABS: BILIRUBIN,TOTAL 0.8 mg/dL (0.2-1.0); TOTAL PROTEIN, SERUM 8.4 g/dL (6.0-8.3)
[2020-02-07] MEDS ORDERED: ALBUTEROL INHALER 90MCG/INH IH ONE (16:18)
== END 2020-02-07 16:30 | disposition home or self-care (01) ==
LOC: EDH 12:04
DX: R05 Cough (principal); R50.9 Fever, unspecified; R53.1 Weakness; Z20.828 Contact with and (suspected) exposure to other viral communicable diseases; J44.9 Chronic obstructive pulmonary disease, unspecified; I25.10 Atherosclerotic heart disease of native coronary artery without angina pectoris; E11.9 Type 2 diabetes mellitus without complications; E78.5 Hyperlipidemia, unspecified; I10 Essential (primary) hypertension; Z72.0 Tobacco use; Z88.6 Allergy status to analgesic agent; Z88.8 Allergy status to other drugs, medicaments and biological substances
CPT/HCPCS: 36415; 71045; 80053; 82550; 84484; 85025; 93005; U0003

== ENCOUNTER 2020-02-15 16:29 | Inpatient (IN) | payer OTHER ==
[~2020-02-15] VITALS: Ht 177.8 cm; Wt 104.1 kg
[2020-02-15 16:41] LABS: ABG BASE EXCESS -1.1 mmol/L (-2.0-3.0); ABG HCO3 22.1 mmol/L (21.0-28.0); ABG OXYGEN SATURATION 86.7 % (95.0-99.0); ABG PCO2 33 mmHg (35-48)
[2020-02-15] MEDS ORDERED: NITROGLYCERIN 1GM/1 INCH PACKET TD ONE (16:52)
[2020-02-15] MEDS ORDERED: ASPIRIN 325 MG TABLET ONE (16:52)
[2020-02-15 17:01] LABS: BASOPHILS % (AUTO) 0.2 % (0.0-5.0); EOSINOPHILS % (AUTO) 0.5 % (0.0-8.0); HEMATOCRIT 38.3 % (42-54); LYMPHOCYTES % (AUTO) 15.3 % (21.0-51.0); MEAN CORPUSCULAR HGB CONC 34.2 g/dL (32.0-36.0); MEAN CORPUSCULAR VOLUME 87.8 fL (79-99); MONOCYTES % (AUTO) 4.1 % (3.0-13.0); NEUTROPHILS % (AUTO) 78.7 % (40.0-77.0); PLATELET COUNT (AUTO) 148 K/uL (130-400); RED BLOOD CELL COUNT(AUTO) 4.36 MIL/uL (4.50-6.20); RED CELL DISTRIBUTION WIDTH 12.6 % (11.0-15.5); WHITE BLOOD COUNT (AUTO) 5.8 K/uL (4.8-10.8)
[2020-02-15 17:16] LABS: INR 0.91 (0.85-1.15); PARTIAL THROMBOPLASTIN TIME 38.2 SEC (26.3-35.5); PROTHROMBIN TIME 9.9 SEC (9.6-11.6)
[2020-02-15 17:23] LABS: ALBUMIN 2.9 g/dL (3.5-5.0); BILIRUBIN,TOTAL 1.4 mg/dL (0.2-1.0); CREATININE 1.1 mg/dL (0.5-1.5); POTASSIUM 3.8 mmol/L (3.5-5.1); TOTAL PROTEIN, SERUM 8.2 g/dL (6.0-8.3)
[2020-02-15 17:38] LABS: B-TYPE NATRIURETIC PEPTIDE 30 pg/mL (0-100)
[2020-02-15 18:08] LABS: APPEARANCE,URINE Clear (CLEAR); BILIRUBIN,URINE Small (NEGATIVE); COLOR,URINE Dark Yellow (YELLOW); GLUCOSE, URINE (UA) >=1000 mg/dL (NEGATIVE); KETONES,URINE Trace mg/dL (NEGATIVE); LEUKOCYTE ESTERASE ,URINE Negative (NEGATIVE); NITRATE,URINE Negative (NEGATIVE); OCCULT BLOOD,URINE Negative (NEGATIVE); PROTEIN,URINE POS 2+ mg/dL (NEGATIVE)
[2020-02-15 18:21] LABS: AMORPHOUS SEDIMENT,UR Few /LPF (None Seen); BACTERIA,URINE Few /HPF (None Seen); MUCUS,URINE Few LPF (None Seen); RBC,URINE None Seen /HPF (0-1); SQUAMOUS EPITHELIAL CELL,UR 0-2 /HPF (0-2); WBC,URINE 0-1 /HPF (0-1)
[2020-02-15] MEDS ORDERED: AZITHROMYCIN 250 MG TABLET PO ONE (18:55)
[2020-02-15] MEDS ORDERED: CEFTRIAXONE SODIUM 1 GM ONE (18:55)
[2020-02-15] MEDS ORDERED: GUAIFENESIN-DM 200/20 MG 10 ML PO PRN (20:15)
[2020-02-15] MEDS ORDERED: DOXYCYCLINE 100MG+NS 250ML IV SCH (20:15)
[2020-02-15] MEDS: CEFTRIAXONE SODIUM 1 GM IVP SCH (20:15)
[2020-02-15] MEDS ORDERED: ACETAMINOPHEN 325 MG TAB PO PRN ×2 (20:15)
[2020-02-15] MEDS ORDERED: ERGOCALCIFEROL (VITAMIN D2) 50,000 UNIT CAPSULE PO ONE (20:15)
[2020-02-15] MEDS ORDERED: ONDANSETRON HCL 4 MG/2 ML VIAL IV PRN (20:15)
[2020-02-15] MEDS ORDERED: GLUCAGON 1MG KIT 1 MG ML IM PRN (20:30)
[2020-02-15] MEDS ORDERED: DEXTROSE 50%-WATER 50 ML DISP.SYRIN IV PRN (20:30)
[2020-02-15] MEDS: NITROGLYCERIN 1GM/1 INCH PACKET TD SCH (20:45)
[2020-02-15] MEDS: FAMOTIDINE/PF 20 MG/2 ML VIAL IV SCH (21:00)
[2020-02-15] MEDS: ACETYLCYSTEINE 600 MG CAPSULE PO SCH (21:00)
[2020-02-15] MEDS: INSULIN HUMULIN R 100 UNIT/ML 3ML SQ SCH (21:00)
[2020-02-15] MEDS: METHYLPREDNISOLONE SOD SUCC 40MG/ML 1ML IVP SCH (21:00)
[2020-02-15] MEDS ORDERED: DOXYCYCLINE 100MG+NS 250ML 250 ML IV SCH (21:00)
[2020-02-15] MEDS ORDERED: METHYLPREDNISOLONE SOD SUCC 40MG/ML 1ML ONE (21:40)
[2020-02-15] MEDS ORDERED: DOXYCYCLINE 100MG+NS 250ML 250 ML IV ONE (21:40)
[2020-02-15] MEDS ORDERED: FAMOTIDINE/PF 20 MG/2 ML VIAL IV ONE (21:41)
[2020-02-15] MEDS ORDERED: INSULIN HUMULIN R 100 UNIT/ML 3ML ONE (21:43)
[2020-02-16] VITALS (7 sets, daily range): BP systolic 106–149; BP diastolic 67–85
[2020-02-16] MEDS: ALBUTEROL INHALER 90MCG/INH IH SCH ×4 (01:32→18:07)
[2020-02-16 05:22] LABS: HEMATOCRIT 34.8 % (42-54); LYMPHOCYTES % (AUTO) 8.4 % (21.0-51.0); MEAN CORPUSCULAR HGB CONC 33.9 g/dL (32.0-36.0); MEAN CORPUSCULAR VOLUME 88.5 fL (79-99); MONOCYTES % (AUTO) 2.4 % (3.0-13.0); NEUTROPHILS % (AUTO) 88.2 % (40.0-77.0); PLATELET COUNT (AUTO) 131 K/uL (130-400); RED BLOOD CELL COUNT(AUTO) 3.93 MIL/uL (4.50-6.20); RED CELL DISTRIBUTION WIDTH 12.5 % (11.0-15.5)
[2020-02-16 05:33] LABS: ALANINE AMINOTRANSFERASE 22 U/L (12-78); ALBUMIN 2.5 g/dL (3.5-5.0); ASPARTATE AMINOTRANSFERASE 32 U/L (10-37); BILIRUBIN,TOTAL 1.2 mg/dL (0.2-1.0); CARBON DIOXIDE 23 mmol/L (21-32); CHLORIDE 98 mmol/L (101-111); CREATINE KINASE, TOTAL 13 U/L (21-232); GLOMERULAR FILTR. RATE CALC 80 mL/min (>60); GLUCOSE,RANDOM 320 mg/dL (70-105); LACTATE DEHYDROGENASE 332 U/L (81-234); MYOGLOBIN 38 ng/mL (10-92); POTASSIUM 4.2 mmol/L (3.5-5.1); SODIUM SERUM 130 mmol/L (136-145); TOTAL PROTEIN, SERUM 7.3 g/dL (6.0-8.3); TROPONIN I < 0.04 ng/mL (0.00-0.06); UREA NITROGEN, BLOOD 23 mg/dL (7-18)
[2020-02-16] MEDS: NITROGLYCERIN 1GM/1 INCH PACKET TD SCH ×3 (05:51→20:15)
[2020-02-16] MEDS: INSULIN HUMULIN R 100 UNIT/ML 3ML SQ SCH ×5 (05:53→20:17)
--- NOTE | 2020-02-16 06:23 | NUR ---
assessment patient is alert and oriented times 4. currently no complaints of any pain. patient is on a nonrebreather at 15 liters sating low 90's. nitro patch applied this morning to the right chest. troponin neg. so far. IV x 2 saline locked. patient up ad simona. morning blood sugar was 337 coverage was given. vitals are stable will continue to monitor.
[2020-02-16] MEDS: ACETYLCYSTEINE 600 MG CAPSULE PO SCH ×2 (10:43→20:15)
[2020-02-16] MEDS: ASPIRIN 81MG TAB.CHEW PO SCH (10:43)
[2020-02-16] MEDS: ZINC SULFATE 220 CAPSULE PO SCH (10:44)
[2020-02-16] MEDS: ENOXAPARIN SODIUM 40 MG/0.4 ML SYRINGE SQ SCH (10:44)
[2020-02-16] MEDS: METHYLPREDNISOLONE SOD SUCC 40MG/ML 1ML IVP SCH ×3 (10:45→20:15)
[2020-02-16] MEDS: FAMOTIDINE/PF 20 MG/2 ML VIAL IV SCH ×2 (10:45→20:15)
[2020-02-16] MEDS: ASCORBIC ACID 500 MG TAB PO SCH (10:45)
[2020-02-16] MEDS: CEFTRIAXONE SODIUM 1 GM IVP SCH ×2 (10:46→20:14)
[2020-02-16] MEDS: DOXYCYCLINE HYCLATE 100 MG TABLET PO SCH ×2 (14:03→20:15)
[2020-02-16] MEDS ORDERED: IOHEXOL-350 75 ML VIAL IV ONE (16:59)
--- NOTE | 2020-02-16 17:56 | NUR ---
INITIAL SW spoke to patient's spouse, Paulina Woodard. Patient lives with spouse. He has no home health but does have PHC X 19 hours a week. DME: hospital bed, nebulizer, shower chair, BSC, O2 concentrator/portable. O2 was arranged thru [facility] but spouse states that the last time she asked them to refill portables, she was told patient's insurance would not cover. PCP is Dr. Dunn. Pharmacy is [facility] located on [address] [place] [address] in [place] or [facility] in [place]. DCP is home. Addendum: 02/16/20 at 1843 by JUAN PABLO FOX SS Amended: Links added.
[2020-02-16] MEDS: INSULIN NPH 100 UNIT/ML 3ML SQ SCH (17:59)
--- NOTE | 2020-02-16 18:05 | NUR ---
Alternate Emergency Contact Irena Desmond, daughter, [phone]
--- NOTE | 2020-02-16 22:48 | NUR ---
TRANSFERRED FROM 411 Pt. transferred via wheelchair via NRB 100% (15LPM) with O2Sat at 94%. AOx4. Denies feeling of pain. Can amb indep,but needs totally dep with NRB at this time. Placed in bed comfortably. Transferred to room with his personal belongings. No apparent distress noted. Report given by JUSTINE Sidhu. Plan of care continued. Monitored and needs attended.
--- NOTE | 2020-02-16 23:00 | NUR ---
bed move pt. is alert and oriented times 4. No complaints of any chest pain. blood sugar was 337 tonight i covered him with insulin. pt. room began to leak from the rain and the patient was moved to room 308. vitals stable will continue to monitor.
[2020-02-17 03:41] VITALS: BP 154/75
[2020-02-17] MEDS: NITROGLYCERIN 1GM/1 INCH PACKET TD SCH ×3 (05:35→20:23)
[2020-02-17] MEDS: ALBUTEROL INHALER 90MCG/INH IH SCH ×4 (05:35→18:39)
[2020-02-17 06:10] LABS: BASOPHILS % (AUTO) 0.1 % (0.0-5.0); HEMATOCRIT 36.1 % (42-54); LYMPHOCYTES % (AUTO) 8.6 % (21.0-51.0); MEAN CORPUSCULAR HEMOGLOBIN 29.4 pg (27.0-33.0); MEAN CORPUSCULAR HGB CONC 33.2 g/dL (32.0-36.0); MEAN CORPUSCULAR VOLUME 88.5 fL (79-99); MONOCYTES % (AUTO) 3.9 % (3.0-13.0); NEUTROPHILS % (AUTO) 86.5 % (40.0-77.0); PLATELET COUNT (AUTO) 175 K/uL (130-400); RED BLOOD CELL COUNT(AUTO) 4.08 MIL/uL (4.50-6.20); RED CELL DISTRIBUTION WIDTH 12.4 % (11.0-15.5); WHITE BLOOD COUNT (AUTO) 6.8 K/uL (4.8-10.8)
[2020-02-17] MEDS: INSULIN NPH 100 UNIT/ML 3ML SQ SCH ×2 (06:24→17:24)
[2020-02-17] MEDS: INSULIN HUMULIN R 100 UNIT/ML 3ML SQ SCH ×7 (06:25→20:25)
[2020-02-17 06:31] LABS: ALBUMIN 2.6 g/dL (3.5-5.0); BILIRUBIN,TOTAL 0.7 mg/dL (0.2-1.0); CREATININE 0.9 mg/dL (0.5-1.5); POTASSIUM 4.4 mmol/L (3.5-5.1); TOTAL PROTEIN, SERUM 7.7 g/dL (6.0-8.3)
[2020-02-17 08:37] VITALS: BP 120/75
[2020-02-17] MEDS: CEFTRIAXONE SODIUM 1 GM IVP SCH ×2 (08:49→20:21)
[2020-02-17] MEDS: ASCORBIC ACID 500 MG TAB PO SCH (08:49)
[2020-02-17] MEDS: FAMOTIDINE/PF 20 MG/2 ML VIAL IV SCH ×2 (08:49→20:23)
[2020-02-17] MEDS: DOXYCYCLINE HYCLATE 100 MG TABLET PO SCH ×2 (08:49→20:23)
[2020-02-17] MEDS: METHYLPREDNISOLONE SOD SUCC 40MG/ML 1ML IVP SCH ×3 (08:49→20:23)
[2020-02-17] MEDS: ASPIRIN 81MG TAB.CHEW PO SCH (08:50)
[2020-02-17] MEDS: ZINC SULFATE 220 CAPSULE PO SCH (08:50)
[2020-02-17] MEDS: ENOXAPARIN SODIUM 40 MG/0.4 ML SYRINGE SQ SCH (08:50)
[2020-02-17] MEDS ORDERED: BENZONATATE 100 MG CAPSULE PO SCH (10:45)
[2020-02-17] MEDS ORDERED: ALBUTEROL INHALER 90MCG/INH IH PRN (10:45)
[2020-02-17 11:56] VITALS: BP_DIAS 76
[2020-02-17] MEDS: ACETYLCYSTEINE 600 MG CAPSULE PO SCH ×2 (12:12→20:23)
[2020-02-17 17:29] VITALS: BP 128/81
[2020-02-17 20:23] VITALS: BP 126/83
[2020-02-17] MEDS: BENZONATATE 100 MG CAPSULE PO SCH (20:23)
[2020-02-17 23:21] VITALS: BP 129/78
[2020-02-18 03:30] VITALS: BP 124/71
[2020-02-18] MEDS: NITROGLYCERIN 1GM/1 INCH PACKET TD SCH ×3 (05:30→21:27)
[2020-02-18] MEDS: BENZONATATE 100 MG CAPSULE PO SCH ×3 (05:30→21:26)
[2020-02-18] MEDS: ALBUTEROL INHALER 90MCG/INH IH SCH ×4 (05:30→17:07)
[2020-02-18] MEDS: INSULIN HUMULIN R 100 UNIT/ML 3ML SQ SCH ×7 (05:42→21:19)
[2020-02-18 05:43] LABS: BASOPHILS % (AUTO) 0.2 % (0.0-5.0); EOSINOPHILS % (AUTO) 0.2 % (0.0-8.0); HEMATOCRIT 35.9 % (42-54); LYMPHOCYTES % (AUTO) 8.9 % (21.0-51.0); MEAN CORPUSCULAR HEMOGLOBIN 29.6 pg (27.0-33.0); MEAN CORPUSCULAR HGB CONC 33.1 g/dL (32.0-36.0); MEAN CORPUSCULAR VOLUME 89.3 fL (79-99); MONOCYTES % (AUTO) 4.4 % (3.0-13.0); NEUTROPHILS % (AUTO) 85.3 % (40.0-77.0); PLATELET COUNT (AUTO) 193 K/uL (130-400); RED BLOOD CELL COUNT(AUTO) 4.02 MIL/uL (4.50-6.20); RED CELL DISTRIBUTION WIDTH 12.3 % (11.0-15.5); WHITE BLOOD COUNT (AUTO) 5.9 K/uL (4.8-10.8)
[2020-02-18] MEDS: INSULIN NPH 100 UNIT/ML 3ML SQ SCH ×2 (05:43→16:59)
[2020-02-18] MEDS: PHARMACY COMMUNICATION**REMDESIVIR ORDER MISC SCH ×3 (06:30→22:30)
[2020-02-18 06:33] LABS: ALANINE AMINOTRANSFERASE 28 U/L (12-78); ALBUMIN 2.6 g/dL (3.5-5.0); ASPARTATE AMINOTRANSFERASE 29 U/L (10-37); BILIRUBIN,TOTAL 0.5 mg/dL (0.2-1.0); CARBON DIOXIDE 28 mmol/L (21-32); CHLORIDE 103 mmol/L (101-111); CREATININE 0.9 mg/dL (0.5-1.5); GLOMERULAR FILTR. RATE CALC 91 mL/min (>60); GLUCOSE,RANDOM 212 mg/dL (70-105); LACTATE DEHYDROGENASE 319 U/L (81-234); POTASSIUM 4.3 mmol/L (3.5-5.1); SODIUM SERUM 139 mmol/L (136-145); TOTAL PROTEIN, SERUM 7.1 g/dL (6.0-8.3); UREA NITROGEN, BLOOD 27 mg/dL (7-18)
[2020-02-18 08:00] VITALS: BP 140/78
[2020-02-18] MEDS: ASCORBIC ACID 500 MG TAB PO SCH (08:47)
[2020-02-18] MEDS: METHYLPREDNISOLONE SOD SUCC 40MG/ML 1ML IVP SCH ×3 (08:47→21:27)
[2020-02-18] MEDS: CEFTRIAXONE SODIUM 1 GM IVP SCH ×2 (08:47→21:27)
[2020-02-18] MEDS: FAMOTIDINE/PF 20 MG/2 ML VIAL IV SCH ×2 (08:47→21:26)
[2020-02-18] MEDS: ASPIRIN 81MG TAB.CHEW PO SCH (08:48)
[2020-02-18] MEDS: ZINC SULFATE 220 CAPSULE PO SCH (08:48)
[2020-02-18] MEDS: DOXYCYCLINE HYCLATE 100 MG TABLET PO SCH ×2 (08:48→21:26)
[2020-02-18] MEDS: ENOXAPARIN SODIUM 100 MG/1 ML SQ SCH (08:48)
[2020-02-18] MEDS: ACETYLCYSTEINE 600 MG CAPSULE PO SCH ×2 (09:17→21:26)
[2020-02-18 11:00] VITALS: BP 146/79
[2020-02-18 16:00] VITALS: BP 134/79
[2020-02-18 20:32] VITALS: BP 142/88
[2020-02-18] MEDS ORDERED: COMPOUND IV REFRIGERATED 1 EACH IVSOLN MISC PRN (20:45)
[2020-02-18] MEDS ORDERED: REMDESIVIR (EUA) 520 200 MG in SODIUM CHLORIDE 0.9% 250 ML IV ONE (21:30)
[2020-02-19] VITALS (7 sets, daily range): BP systolic 118–149; BP diastolic 70–84
[2020-02-19] MEDS: ALBUTEROL INHALER 90MCG/INH IH SCH ×4 (00:17→17:31)
[2020-02-19] MEDS: NITROGLYCERIN 1GM/1 INCH PACKET TD SCH ×3 (04:33→20:38)
[2020-02-19] MEDS: BENZONATATE 100 MG CAPSULE PO SCH ×3 (04:33→20:38)
[2020-02-19] MEDS: PHARMACY COMMUNICATION**REMDESIVIR ORDER MISC SCH ×3 (06:30→20:38)
[2020-02-19] MEDS: INSULIN HUMULIN R 100 UNIT/ML 3ML SQ SCH ×7 (07:06→20:37)
[2020-02-19] MEDS: INSULIN NPH 100 UNIT/ML 3ML SQ SCH (07:17)
[2020-02-19 07:57] LABS: HEMATOCRIT 37.4 % (42-54); LYMPHOCYTES % (AUTO) 11.6 % (21.0-51.0); MEAN CORPUSCULAR HEMOGLOBIN 29.6 pg (27.0-33.0); MEAN CORPUSCULAR HGB CONC 33.4 g/dL (32.0-36.0); MEAN CORPUSCULAR VOLUME 88.4 fL (79-99); MONOCYTES % (AUTO) 3.3 % (3.0-13.0); NEUTROPHILS % (AUTO) 83.6 % (40.0-77.0); PLATELET COUNT (AUTO) 216 K/uL (130-400); RED BLOOD CELL COUNT(AUTO) 4.23 MIL/uL (4.50-6.20); RED CELL DISTRIBUTION WIDTH 12.4 % (11.0-15.5); WHITE BLOOD COUNT (AUTO) 5.2 K/uL (4.8-10.8)
[2020-02-19 08:22] LABS: ALBUMIN 2.6 g/dL (3.5-5.0); BILIRUBIN,TOTAL 0.5 mg/dL (0.2-1.0); CREATININE 0.8 mg/dL (0.5-1.5); POTASSIUM 3.9 mmol/L (3.5-5.1); TOTAL PROTEIN, SERUM 7.1 g/dL (6.0-8.3)
[2020-02-19] MEDS: METHYLPREDNISOLONE SOD SUCC 40MG/ML 1ML IVP SCH ×3 (08:56→20:38)
[2020-02-19] MEDS: CEFTRIAXONE SODIUM 1 GM IVP SCH ×2 (08:56→20:38)
[2020-02-19] MEDS: FAMOTIDINE/PF 20 MG/2 ML VIAL IV SCH ×2 (08:56→20:39)
[2020-02-19] MEDS: ENOXAPARIN SODIUM 100 MG/1 ML SQ SCH (08:57)
[2020-02-19] MEDS: ACETYLCYSTEINE 600 MG CAPSULE PO SCH ×2 (08:57→20:38)
[2020-02-19] MEDS: ASCORBIC ACID 500 MG TAB PO SCH (08:59)
[2020-02-19] MEDS: ZINC SULFATE 220 CAPSULE PO SCH (08:59)
[2020-02-19] MEDS: ASPIRIN 81MG TAB.CHEW PO SCH (08:59)
[2020-02-19] MEDS: DOXYCYCLINE HYCLATE 100 MG TABLET PO SCH ×2 (08:59→20:38)
[2020-02-19 11:52] LABS: LACTATE DEHYDROGENASE 252 U/L (81-234)
[2020-02-19] MEDS ORDERED: INSULIN NPH 100 UNIT/ML 3ML SQ SCH (20:00)
[2020-02-19] MEDS ORDERED: REMDESIVIR (EUA) 520 100 MG in SODIUM CHLORIDE 0.9% 250 ML IV SCH (21:00)
[2020-02-20 03:20] VITALS: BP 134/82
[2020-02-20] MEDS: BENZONATATE 100 MG CAPSULE PO SCH ×2 (05:47→13:13)
[2020-02-20] MEDS: NITROGLYCERIN 1GM/1 INCH PACKET TD SCH ×3 (05:47→11:45)
[2020-02-20] MEDS: INSULIN HUMULIN R 100 UNIT/ML 3ML SQ SCH ×4 (05:48→11:37)
[2020-02-20 07:54] LABS: BASOPHILS % (AUTO) 0.2 % (0.0-5.0); EOSINOPHILS % (AUTO) 0.4 % (0.0-8.0); HEMATOCRIT 37.3 % (42-54); LYMPHOCYTES % (AUTO) 16.9 % (21.0-51.0); MEAN CORPUSCULAR HEMOGLOBIN 29.2 pg (27.0-33.0); MEAN CORPUSCULAR HGB CONC 32.7 g/dL (32.0-36.0); MEAN CORPUSCULAR VOLUME 89.2 fL (79-99); MONOCYTES % (AUTO) 2.3 % (3.0-13.0); NEUTROPHILS % (AUTO) 77.5 % (40.0-77.0); PLATELET COUNT (AUTO) 226 K/uL (130-400); RED BLOOD CELL COUNT(AUTO) 4.18 MIL/uL (4.50-6.20); RED CELL DISTRIBUTION WIDTH 12.3 % (11.0-15.5); WHITE BLOOD COUNT (AUTO) 5.3 K/uL (4.8-10.8)
[2020-02-20 08:05] VITALS: BP 148/82
[2020-02-20 08:11] LABS: ALBUMIN 2.7 g/dL (3.5-5.0); BILIRUBIN,TOTAL 0.4 mg/dL (0.2-1.0); CREATININE 0.7 mg/dL (0.5-1.5); POTASSIUM 4.5 mmol/L (3.5-5.1); TOTAL PROTEIN, SERUM 6.9 g/dL (6.0-8.3)
[2020-02-20 08:33] LABS: CRP QUANTITATIVE 12.9 mg/L (0.00-9.0)
[2020-02-20] MEDS: INSULIN NPH 100 UNIT/ML 3ML SQ SCH (08:59)
[2020-02-20] MEDS: ZINC SULFATE 220 CAPSULE PO SCH (09:00)
[2020-02-20] MEDS: METHYLPREDNISOLONE SOD SUCC 40MG/ML 1ML IVP SCH ×2 (09:00→13:13)
[2020-02-20] MEDS: ENOXAPARIN SODIUM 100 MG/1 ML SQ SCH (09:00)
[2020-02-20] MEDS: DOXYCYCLINE HYCLATE 100 MG TABLET PO SCH (09:00)
[2020-02-20] MEDS: ACETYLCYSTEINE 600 MG CAPSULE PO SCH (09:00)
[2020-02-20] MEDS: FAMOTIDINE/PF 20 MG/2 ML VIAL IV SCH (09:00)
[2020-02-20] MEDS: CEFTRIAXONE SODIUM 1 GM IVP SCH (09:01)
[2020-02-20] MEDS: ASPIRIN 81MG TAB.CHEW PO SCH (09:01)
[2020-02-20] MEDS: ASCORBIC ACID 500 MG TAB PO SCH (09:01)
[2020-02-20] MEDS: ALBUTEROL INHALER 90MCG/INH IH SCH ×3 (09:08→11:39)
[2020-02-20 11:30] VITALS: BP 147/81
--- NOTE | 2020-02-20 14:30 | NUR ---
DC ALSO INFORMED PATIENT THAT HE IS PENDING PLASMA TREATMENT THAT WAS ORDERED. PT STATED " I DONT NEED THAT , I WANT TO GO HOME, I FEEL GOOD. " .
--- NOTE | 2020-02-20 14:30 | NUR ---
DC CALLED TO ROOM BY PATIENT. PT SEEMED ANXIOUS AND FRUSTRATED STATED " I NEED TO BE DISCHARGE HOME TODAY NO MATTER WHAT , IF I DONT GET DISCHARGE HOME I AM LEAVING AMA. PT STATES " I FEEL ALOT BETTER, I'M READY TO GO HOME TODAY. " I HAVE OXYGEN AT HOME ALREADY I CAN USE THAT. PRITESH GATES KNIFE CUTTER WAS INFORMED SHE STATED SHE WILL DISCHARGE HOME.
[2020-02-20] MEDS ORDERED: ALBU8.5H8 IH (14:55)
[2020-02-20] MEDS ORDERED: LEVO500T2 PO (14:55)
[2020-02-20] MEDS ORDERED: ASCO500T10 PO (14:55)
[2020-02-20] MEDS ORDERED: DEXA6TAB7 PO (14:55)
[2020-02-20] MEDS ORDERED: ZINC220C6 PO (14:55)
--- NOTE | 2020-02-20 15:30 | NUR ---
DC DC INSTRUCTIONS GIVEN TO PT WITH RX, INSTRUCTED ON NEW MED REGIMEN. TO CONTINUE WITH OXYGEN AT HOME AND IS EVERY HR WHILE AWAKE. PT VERBALIZED UNDERSTANDING. PT STATES FEEL READY TO GO HOME. PIV REMOVED , SITE ASYMPTOMATIC.
--- NOTE | 2020-02-20 15:48 | NUR ---
DC PT DC HOME DIDN'T WANT TO WAIT FOR HIS DAUGHTER TO PICK HIM UP, HE WAS UPSET STATED "YOU DONT TELL ME WHAT TO DO. PT INFORMED SAFETY CONCERNS ABOUT DRIVING HIMSELF HOME. HE STATED " I FEEL GOOD I CAN DRIVE HOME" , " I AM WALKING MYSELF OUT" . VALDEMAR OIL EXPLORATION ENGINEER ESCORTED HIM OUTSIDE TO MAKE SURE HE SAFELY WALKED OUTSIDE. HE APPEARED IN NO RESP DISTRESS. PT SEEMED UPSET STATES "LEAVE ME ALONE". i SPOKE TO PATIENTS SPOUSE INFORMED HER ABOUT SITUATION SHE STATED "MY IS VERY STUBBORN TO LET HIM GO. PRITESH GATES MUCK OPERATOR NOTIFIED OF INCIDENT. PT WAS INFORMED OF RISK AND CONSEQUENCES HE STATED HE UNDERSTANDS AND WILLING TO TAKE RISKS. CHARGE NURSE ALEXIS FLETCHER AWARE,NO PIV OR SHEARING MACHINE FEEDER IN PLACE
== END 2020-02-20 15:45 | disposition left against medical advice (07) | DRG 177 ==
LOC: EDH 16:29 → EDHIP 20:13 → 4BH 23:55 → 3BH 02-16 22:32
PROVIDERS: ADMIT Hospitalist; ATTEND Hospitalist
DX: U07.1 COVID-19 (principal); J96.01 Acute respiratory failure with hypoxia; J12.89 Other viral pneumonia; J44.0 Chronic obstructive pulmonary disease with (acute) lower respiratory infection; Z87.891 Personal history of nicotine dependence; E11.65 Type 2 diabetes mellitus with hyperglycemia; E78.5 Hyperlipidemia, unspecified; E86.0 Dehydration; F32.9 Major depressive disorder, single episode, unspecified; F41.9 Anxiety disorder, unspecified; I10 Essential (primary) hypertension; I25.10 Atherosclerotic heart disease of native coronary artery without angina pectoris; T38.0X5A Adverse effect of glucocorticoids and synthetic analogues, initial encounter; Y92.89 Other specified places as the place of occurrence of the external cause; Z82.3 Family history of stroke; Z82.49 Family history of ischemic heart disease and other diseases of the circulatory system; Z82.5 Family history of asthma and other chronic lower respiratory diseases; Z83.3 Family history of diabetes mellitus; Z91.19 Patient's noncompliance with other medical treatment and regimen; Z95.1 Presence of aortocoronary bypass graft; Z53.29 Procedure and treatment not carried out because of patient's decision for other reasons
CPT/HCPCS: 36415; 36600; 71045; 71275; 80053; 81001; 82550; 82728; 82803; 82948; 83615; 83874; 83880; 84145; 84484; 85025; 85378; 85610; 85730; 86140; 86850; 86900; 86901; 87426; 87486; 87581; 87633; 87798; 87804; 93005; 99291; G0378; J0696; J1650; J1815; J2920; J3490; J7050; Q9967; U0003

== ENCOUNTER 2020-05-26 23:15 | Inpatient (IN) | payer OTHER ==
[~2020-05-26] VITALS: Ht 177.8 cm; Wt 111.3 kg
[~2020-05-26 23:15] MED LIST changes: +ALBU8.5H8 IH; +ASCO500T10 PO; +DEXA6TAB7 PO; +LEVO500T2 PO; +ZINC220C6 PO
[2020-05-26 23:30] LABS: MEAN CORPUSCULAR HEMOGLOBIN 28.4 pg (27.0-33.0); MEAN CORPUSCULAR VOLUME 88.7 fL (79-99); PLATELET COUNT (AUTO) 150 K/uL (130-400); RED BLOOD CELL COUNT(AUTO) 4.51 MIL/uL (4.50-6.20); RED CELL DISTRIBUTION WIDTH 13.4 % (11.0-15.5)
[2020-05-26] MEDS ORDERED: NITROGLYCERIN 1GM/1 INCH PACKET TD ONE (23:30)
[2020-05-26 23:48] LABS: INR 0.88 (0.85-1.15); PARTIAL THROMBOPLASTIN TIME 29.5 SEC (26.3-35.5); PROTHROMBIN TIME 9.6 SEC (9.6-11.6)
[2020-05-27 00:05] LABS: APPEARANCE,URINE Clear (CLEAR); BILIRUBIN,URINE Negative (NEGATIVE); COLOR,URINE Yellow (YELLOW); GLUCOSE, URINE (UA) >=1000 mg/dL (NEGATIVE); KETONES,URINE Negative (NEGATIVE); LEUKOCYTE ESTERASE ,URINE Negative (NEGATIVE); NITRATE,URINE Negative (NEGATIVE); OCCULT BLOOD,URINE Negative (NEGATIVE); PROTEIN,URINE Negative (NEGATIVE); UROBILINOGEN,URINE 0.2 mg/dL (0.2-1.0)
[2020-05-27 00:10] LABS: ALBUMIN 3.8 g/dL (3.5-5.0); BILIRUBIN,TOTAL 0.5 mg/dL (0.2-1.0); CREATININE 0.9 mg/dL (0.5-1.5); TOTAL PROTEIN, SERUM 7.9 g/dL (6.0-8.3)
[2020-05-27 00:11] LABS: BACTERIA,URINE None Seen /HPF (None Seen); RBC,URINE None Seen /HPF (0-1); SQUAMOUS EPITHELIAL CELL,UR Rare /HPF (0-2); WBC,URINE None Seen /HPF (0-1); YEAST,URINE BUDDING None Seen /HPF (None Seen)
[2020-05-27 00:14] LABS: POTASSIUM 4.7 mmol/L (3.5-5.1)
[2020-05-27] MEDS ORDERED: INSULIN HUMULIN R 100 UNIT/ML 3ML ONE (02:03)
[2020-05-27] MEDS ORDERED: EMPA25TA PO (04:29)
[2020-05-27] MEDS ORDERED: NAPR220C15 PO (04:29)
[2020-05-27] MEDS ORDERED: GLIP10TA9 PO (04:29)
[2020-05-27] MEDS ORDERED: METF-446 PO (04:29)
[2020-05-27] MEDS ORDERED: BENZ-51 PO (04:29)
[2020-05-27 04:48] VITALS: BP 121/70
[2020-05-27 05:48] LABS: HEMATOCRIT 37.4 % (42-54); MEAN CORPUSCULAR HGB CONC 32.1 g/dL (32.0-36.0); MEAN CORPUSCULAR VOLUME 87.2 fL (79-99); RED BLOOD CELL COUNT(AUTO) 4.29 MIL/uL (4.50-6.20); RED CELL DISTRIBUTION WIDTH 13.5 % (11.0-15.5); WHITE BLOOD COUNT (AUTO) 5.9 K/uL (4.8-10.8)
[2020-05-27 06:16] LABS: CREATININE 0.8 mg/dL (0.5-1.5); HEMOGLOBIN A1C 7.9 % (4.0-6.0); POTASSIUM 3.7 mmol/L (3.5-5.1)
[2020-05-27] MEDS ORDERED: ACETAMINOPHEN 325 MG TAB PO PRN (07:00)
[2020-05-27] MEDS ORDERED: ONDANSETRON HCL 4 MG/2 ML VIAL IVP PRN (07:00)
[2020-05-27] MEDS: INSULIN R PO SS1 SQ SCH ×4 (07:14→20:20)
[2020-05-27 07:30] VITALS: BP 120/77
[2020-05-27] MEDS: ASPIRIN 81MG TAB.CHEW PO SCH (08:17)
[2020-05-27] MEDS: FAMOTIDINE/PF 20 MG/2 ML VIAL IV SCH ×2 (08:17→20:15)
[2020-05-27 09:17] LABS: TROPONIN I 3.32 ng/mL (0.00-0.06)
[2020-05-27 11:00] VITALS: BP 126/72
--- NOTE | 2020-05-27 11:00 | NUR ---
MET WITH PATIENT AT BEDSIDE FOR DC PLANNING. PATIENT LIVES WITH SPOUSE WHO WILL PROVIDE TRANSPORT SEES PRIMARY MD DR. ERWIN Barney 3 MOS FOR LABS /RXS, HAS 39 PROVIDER HOURS/WK AND NEEDS ASISTANCE IN ADLS, HAS A POWER CHAIR, O2 AND NEBULIZERS, HAS SHOWER CHAIR, HOME SAFE AND ACCESSIBLE, DCP HOME. Addendum: 05/27/20 at 1612 by ORAL GAMBOA RN CM Amended: Links added.
--- NOTE | 2020-05-27 14:10 | NUR ---
Dr Bethea at bedside to assess patient, patient notified MD that he does not wish to have any procedures done, as MD explained about elevation in Troponin level, patient asking for medical management only
[2020-05-27 15:56] LABS: AMPHET/METH SCREEN,URINE NEGATIVE (NEGATIVE); BARBITURATE SCREEN, URINE NEGATIVE (NEGATIVE); BENZODIAZEPINES SCREEN,URINE NEGATIVE (NEGATIVE); CANNABINOID SCREEN,URINE NEGATIVE (NEGATIVE); COCAINE SCREEN,URINE NEGATIVE (NEGATIVE); OPIATE SCREEN,URINE NEGATIVE (NEGATIVE); PHENCYCLIDINE SCREEN,URINE NEGATIVE (NEGATIVE)
[2020-05-27 16:00] VITALS: BP 131/82
[2020-05-27 16:39] LABS: TROPONIN I 2.7 ng/mL (0.00-0.06)
--- NOTE | 2020-05-27 17:00 | NUR ---
BLE US RESULTS RESULTS GIVEN TO KATHERINE QUEVEDO. NO FURTHER ORDERS GIVEN. DR MURILLO TO FOLLOW UP WITH PATIENT IN AM 05/28/20
[2020-05-27 19:48] VITALS: BP 134/82
--- NOTE | 2020-05-27 20:00 | NUR ---
assessment note patient awake, alert, ox3, no sob, no c/o pain at this time,patients at bedside,teach patient and plan of care and expected outcome, both verbalize understanding via teach back
[2020-05-27] MEDS: METOPROLOL TARTRATE 25 MG TAB PO SCH (20:15)
[2020-05-27] MEDS ORDERED: ENOXAPARIN SODIUM 120 MG/0.8ML SQ SCH (21:00)
[2020-05-27] MEDS ORDERED: ENOXAPARIN SODIUM 1 MG/KG SQ SCH (21:00)
[2020-05-27] MEDS ORDERED: ATORVASTATIN CALCIUM 40 MG TABLET PO SCH (21:00)
[2020-05-27] MEDS ORDERED: PHARMACY COMMUNICATION MISC SCH (23:15)
[2020-05-27 23:57] VITALS: BP 134/81
[2020-05-28 04:22] VITALS: BP 118/82
[2020-05-28 05:08] LABS: BASOPHILS % (AUTO) 1.3 % (0.0-5.0); EOSINOPHILS % (AUTO) 3.2 % (0.0-8.0); HEMATOCRIT 39.2 % (42-54); LYMPHOCYTES % (AUTO) 36.5 % (21.0-51.0); MEAN CORPUSCULAR HEMOGLOBIN 27.9 pg (27.0-33.0); MEAN CORPUSCULAR HGB CONC 32.1 g/dL (32.0-36.0); MEAN CORPUSCULAR VOLUME 86.9 fL (79-99); MONOCYTES % (AUTO) 7.5 % (3.0-13.0); NEUTROPHILS % (AUTO) 50.6 % (40.0-77.0); PLATELET COUNT (AUTO) 137 K/uL (130-400); RED BLOOD CELL COUNT(AUTO) 4.51 MIL/uL (4.50-6.20); RED CELL DISTRIBUTION WIDTH 13.3 % (11.0-15.5); WHITE BLOOD COUNT (AUTO) 5.3 K/uL (4.8-10.8)
[2020-05-28 05:45] LABS: ALBUMIN 3.7 g/dL (3.5-5.0); BILIRUBIN,TOTAL 0.5 mg/dL (0.2-1.0); CREATININE 0.9 mg/dL (0.5-1.5); POTASSIUM 3.7 mmol/L (3.5-5.1); TOTAL PROTEIN, SERUM 7.6 g/dL (6.0-8.3)
[2020-05-28 05:50] LABS: TROPONIN I 1.08 ng/mL (0.00-0.06)
[2020-05-28] MEDS: INSULIN R PO SS1 SQ SCH (06:06)
[2020-05-28 07:30] VITALS: BP 134/77
[2020-05-28] MEDS ORDERED: GLIPIZIDE 5 MG TABLET PO SCH (07:30)
[2020-05-28] MEDS ORDERED: CLOPIDOGREL BISULFATE 75 MG TAB PO SCH ×2 (09:00)
[2020-05-28] MEDS ORDERED: ISOS60TA4 PO (09:10)
[2020-05-28] MEDS ORDERED: CLOP75TA14 PO (09:10)
[2020-05-28] MEDS: FAMOTIDINE/PF 20 MG/2 ML VIAL IV SCH (10:02)
[2020-05-28] MEDS: ASPIRIN 81MG TAB.CHEW PO SCH (10:02)
[2020-05-28] MEDS: METOPROLOL TARTRATE 25 MG TAB PO SCH (10:02)
[2020-05-28 11:00] VITALS: BP 152/80
[2020-05-28] MEDS ORDERED: IOHEXOL-350 50ML VIAL IV ONE (12:31)
[2020-05-28] MEDS ORDERED: IOHEXOL 350 MG/ML 100ML INFUS..BTL IV ONE (12:32)
--- NOTE | 2020-05-28 13:04 | NUR ---
PT STATES UNDERSTANDING OF DISCHARGE INSTRUCTIONS, IV(S) REMOVED W/O DIFFICULTY OR COMPLICATION. PT DISMISSED BY W/C IN GOOD CONDITION ACCOMPANIED BY STAFF AND FAMILY
== END 2020-05-28 13:15 | disposition home or self-care (01) | DRG 282 ==
LOC: EDH 23:15 → EDHIP 05-27 01:45 → 4AH 05-27 03:40
PROVIDERS: ADMIT Internal Medicine Nephrology; ATTEND Internal Medicine Nephrology
PROC: B246YZZ Ultrasonography of Right and Left Heart using Other Contrast (ICD-10-PCS; principal; 2020-05-27)
DX: I21.4 Non-ST elevation (NSTEMI) myocardial infarction (principal); I10 Essential (primary) hypertension; J44.9 Chronic obstructive pulmonary disease, unspecified; I25.5 Ischemic cardiomyopathy; E11.51 Type 2 diabetes mellitus with diabetic peripheral angiopathy without gangrene; I25.10 Atherosclerotic heart disease of native coronary artery without angina pectoris; E78.2 Mixed hyperlipidemia; E66.9 Obesity, unspecified; Z68.35 Body mass index [BMI] 35.0-35.9, adult; Z88.5 Allergy status to narcotic agent; Z88.8 Allergy status to other drugs, medicaments and biological substances; Z91.19 Patient's noncompliance with other medical treatment and regimen; Z95.1 Presence of aortocoronary bypass graft; Z86.19 Personal history of other infectious and parasitic diseases; Z87.891 Personal history of nicotine dependence; Z79.899 Other long term (current) drug therapy; I25.2 Old myocardial infarction
CPT/HCPCS: 36415; 71045; 80048; 80053; 80061; 80305; 81001; 82550; 82948; 83036; 83874; 84484; 85025; 85027; 85610; 85730; 93005; 93306; 93356; 93925; G0378; J1650; J1815; J3490; Q9967

== ENCOUNTER 2020-06-24 13:34 | Inpatient (IN) | payer OTHER ==
[~2020-06-24] VITALS: Ht 177.8 cm; Wt 109.3 kg
[~2020-06-24 13:34] MED LIST changes: -ASCO500T10 PO; +BENZ-51 PO; +CLOP75TA14 PO; -CLOP75TA32 PO; -DEXA6TAB7 PO; +EMPA25TA PO; -GABA-533 PO; +GLIP10TA9 PO; -GLYB5TAB8 PO; -IPRAHFA IH; +ISOS60TA4 PO; -LEVO500T2 PO; +METF-446 PO; -MONT10TA26 PO; +MONT10TA96 PO; -ZINC220C6 PO
[2020-06-24 14:03] LABS: BASOPHILS % (AUTO) 0.7 % (0.0-5.0); EOSINOPHILS % (AUTO) 1.2 % (0.0-8.0); HEMATOCRIT 38.8 % (42-54); LYMPHOCYTES % (AUTO) 19.6 % (21.0-51.0); MEAN CORPUSCULAR HEMOGLOBIN 27.3 pg (27.0-33.0); MEAN CORPUSCULAR HGB CONC 32.7 g/dL (32.0-36.0); MEAN CORPUSCULAR VOLUME 83.4 fL (79-99); MONOCYTES % (AUTO) 6.8 % (3.0-13.0); NEUTROPHILS % (AUTO) 71.1 % (40.0-77.0); PLATELET COUNT (AUTO) 155 K/uL (130-400); RED BLOOD CELL COUNT(AUTO) 4.65 MIL/uL (4.50-6.20); RED CELL DISTRIBUTION WIDTH 13.6 % (11.0-15.5); WHITE BLOOD COUNT (AUTO) 6.9 K/uL (4.8-10.8)
[2020-06-24 14:12] LABS: INR 0.89 (0.85-1.15); PARTIAL THROMBOPLASTIN TIME 29.1 SEC (26.3-35.5); PROTHROMBIN TIME 9.7 SEC (9.6-11.6)
[2020-06-24 14:17] LABS: CREATININE 1.1 mg/dL (0.5-1.5); POTASSIUM 4.3 mmol/L (3.5-5.1)
[2020-06-24 14:19] LABS: APPEARANCE,URINE Clear (CLEAR); BILIRUBIN,URINE Negative (NEGATIVE); COLOR,URINE Yellow (YELLOW); GLUCOSE, URINE (UA) >=1000 mg/dL (NEGATIVE); KETONES,URINE Negative (NEGATIVE); LEUKOCYTE ESTERASE ,URINE Negative (NEGATIVE); NITRATE,URINE Negative (NEGATIVE); OCCULT BLOOD,URINE Negative (NEGATIVE); PROTEIN,URINE Negative (NEGATIVE); UROBILINOGEN,URINE 0.2 mg/dL (0.2-1.0)
[2020-06-24 14:21] LABS: ALBUMIN 3.6 g/dL (3.5-5.0); BILIRUBIN,TOTAL 0.5 mg/dL (0.2-1.0); TOTAL PROTEIN, SERUM 7.7 g/dL (6.0-8.3)
[2020-06-24 14:27] LABS: AMPHET/METH SCREEN,URINE NEGATIVE (NEGATIVE); BARBITURATE SCREEN, URINE NEGATIVE (NEGATIVE); BENZODIAZEPINES SCREEN,URINE NEGATIVE (NEGATIVE); CANNABINOID SCREEN,URINE NEGATIVE (NEGATIVE); COCAINE SCREEN,URINE NEGATIVE (NEGATIVE); OPIATE SCREEN,URINE NEGATIVE (NEGATIVE); PHENCYCLIDINE SCREEN,URINE NEGATIVE (NEGATIVE)
[2020-06-24] MEDS ORDERED: INSULIN HUMULIN R 100 UNIT/ML 3ML ONE (14:47)
[2020-06-24 14:48] LABS: BACTERIA,URINE Rare /HPF (None Seen); RBC,URINE 0-1 /HPF (0-1); SQUAMOUS EPITHELIAL CELL,UR Rare /HPF (0-2); WBC,URINE 0-1 /HPF (0-1)
[2020-06-24] MEDS: NITROGLYCERIN 1GM/1 INCH PACKET TD SCH ×2 (17:00→23:00)
[2020-06-24] MEDS ORDERED: ENOXAPARIN SODIUM 1 MG/KG SQ SCH (17:00)
[2020-06-24] MEDS: PRASUGREL HCL 10 MG TABLET PO SCH (17:00)
[2020-06-24] MEDS: METOPROLOL TARTRATE 25 MG TAB PO SCH ×2 (17:00→21:00)
[2020-06-24] MEDS ORDERED: ENOXAPARIN SODIUM 120 MG/0.8ML SQ ONE (17:02)
[2020-06-24] MEDS ORDERED: NITROGLYCERIN 1GM/1 INCH PACKET TD ONE (17:02)
[2020-06-24] MEDS ORDERED: GLUCAGON 1MG KIT 1 MG ML IM PRN (18:30)
[2020-06-24] MEDS ORDERED: DEXTROSE 50%-WATER 50 ML DISP.SYRIN IV PRN (18:30)
[2020-06-24] MEDS ORDERED: SODIUM CHLORIDE 0.9% 1000ML 1,000 ML IV ONE (22:24)
[2020-06-25 00:45] VITALS: BP 119/67
[2020-06-25] MEDS ORDERED: CETI-89 PO (03:17)
[2020-06-25] MEDS ORDERED: PANT40TA54 PO (03:17)
[2020-06-25] MEDS ORDERED: INSU100I26 SQ (03:17)
[2020-06-25] MEDS ORDERED: AMOX-429 PO (03:17)
[2020-06-25 04:00] VITALS: BP 120/70
[2020-06-25] MEDS: NITROGLYCERIN 1GM/1 INCH PACKET TD SCH ×4 (05:00→23:31)
[2020-06-25 06:15] LABS: HEMATOCRIT 37.5 % (42-54); MEAN CORPUSCULAR HEMOGLOBIN 26.9 pg (27.0-33.0); MEAN CORPUSCULAR HGB CONC 31.7 g/dL (32.0-36.0); MEAN CORPUSCULAR VOLUME 84.7 fL (79-99); PLATELET COUNT (AUTO) 130 K/uL (130-400); RED BLOOD CELL COUNT(AUTO) 4.43 MIL/uL (4.50-6.20); RED CELL DISTRIBUTION WIDTH 13.5 % (11.0-15.5); WHITE BLOOD COUNT (AUTO) 6.4 K/uL (4.8-10.8)
[2020-06-25 06:23] LABS: CREATININE 0.9 mg/dL (0.5-1.5); PHOSPHORUS 2.9 mg/dL (2.5-4.9); POTASSIUM 4.2 mmol/L (3.5-5.1)
[2020-06-25] MEDS: INSULIN HUMULIN R 100 UNIT/ML 3ML SQ SCH ×4 (06:45→21:16)
[2020-06-25 07:11] LABS: BASOPHILS % (MANUAL) 1 % (0-2); EOSINOPHILS % (MANUAL) 2 % (1-6); LYMPHOCYTES % (MANUAL) 35 % (22-44); MAN.DIFF COMMENT-IMPRESSION MANUAL DIFFERENTIAL; MONOCYTES % (MANUAL) 1 % (2-9); SEGMENTED NEUTROPHILS % 61 % (40-70)
[2020-06-25 07:12] LABS: PLATELET MORPHOLOGY COMMENT ADEQUATE
[2020-06-25 08:52] VITALS: BP 131/72
[2020-06-25] MEDS ORDERED: PRASUGREL HCL 10 MG TABLET PO SCH (09:30)
[2020-06-25] MEDS ORDERED: ASPIRIN 325 MG TABLET PO SCH (09:30)
[2020-06-25] MEDS: METOPROLOL TARTRATE 25 MG TAB PO SCH ×2 (10:28→21:01)
[2020-06-25] MEDS: PRASUGREL HCL 10 MG TABLET PO SCH (10:29)
[2020-06-25 12:33] VITALS: BP 128/70
[2020-06-25] MEDS ORDERED: ALPRAZOLAM 0.25 MG TABLET PO ONE (13:55)
--- NOTE | 2020-06-25 15:30 | NUR ---
RADHA NOTE/IA MET WITH PATIENT AT BEDSIDE. PER PATIENT, LIVES WITH SPOUSE, IS INDEPENDENT WITH ADLS, HAS USE OF ELECTRIC SCOOTER, HAS PROVIDER FOR 4HR DAILY AND FEELS SAFE TO RETURN HOME ONCE DISCHARGED. Addendum: 06/25/20 at 1532 by ROXANNE MACHADO RN CM Amended: Links added.
[2020-06-25 17:31] VITALS: BP 154/84
[2020-06-25 19:51] VITALS: BP 146/80
[2020-06-26] VITALS (13 sets, daily range): BP systolic 105–151; BP diastolic 45–107
[2020-06-26] MEDS: NITROGLYCERIN 1GM/1 INCH PACKET TD SCH (05:24)
[2020-06-26 06:17] LABS: HEMATOCRIT 40.7 % (42-54); MEAN CORPUSCULAR HEMOGLOBIN 27.6 pg (27.0-33.0); MEAN CORPUSCULAR HGB CONC 32.4 g/dL (32.0-36.0); PLATELET COUNT (AUTO) 141 K/uL (130-400); RED BLOOD CELL COUNT(AUTO) 4.79 MIL/uL (4.50-6.20); RED CELL DISTRIBUTION WIDTH 13.3 % (11.0-15.5); WHITE BLOOD COUNT (AUTO) 6.2 K/uL (4.8-10.8)
[2020-06-26 06:37] LABS: INR 0.9 (0.85-1.15); PARTIAL THROMBOPLASTIN TIME 30.6 SEC (26.3-35.5); PROTHROMBIN TIME 9.8 SEC (9.6-11.6)
[2020-06-26 06:48] LABS: CREATININE 0.8 mg/dL (0.5-1.5); POTASSIUM 4.2 mmol/L (3.5-5.1)
[2020-06-26 06:51] LABS: BAND NEUTROPHILS % (MANUAL) 1 % (0-2); EOSINOPHILS % (MANUAL) 4 % (1-6); LYMPHOCYTES % (MANUAL) 24 % (22-44); MAN.DIFF COMMENT-IMPRESSION MANUAL DIFFERENTIAL; MONOCYTES % (MANUAL) 6 % (2-9); PLATELET MORPHOLOGY COMMENT ADEQUATE; SEGMENTED NEUTROPHILS % 65 % (40-70)
[2020-06-26] MEDS ORDERED: HEPARIN SODIUM 1000UNIT/ML 10ML VIAL ONE (07:15)
[2020-06-26] MEDS ORDERED: NITROGLYCERIN 2 MG/VIAL VIAL IV ONE (07:15)
[2020-06-26] MEDS ORDERED: IOHEXOL 350 MG/ML 100ML INFUS..BTL IV ONE (07:15)
[2020-06-26] MEDS ORDERED: IOHEXOL-350 50ML VIAL IV ONE (07:15)
[2020-06-26] MEDS ORDERED: LIDOCAINE HCL 2% 20ML ONE (07:15)
[2020-06-26] MEDS ORDERED: FENTANYL CITRATE PF 50 MCG/1 ML 2ML VIAL ONE (07:43)
[2020-06-26] MEDS ORDERED: MIDAZOLAM HCL 1 MG/ML 2ML VIAL ONE (07:43)
[2020-06-26] MEDS ORDERED: BIVALIRUDIN 250 MG/VIAL IV ONE ×2 (08:25→09:07)
[2020-06-26] MEDS ORDERED: PRASUGREL HCL 10 MG TABLET ONE (08:27)
[2020-06-26] MEDS ORDERED: ASPIRIN 325MG EC TAB 325 MG TABLET.DR PO ONE (08:27)
[2020-06-26] MEDS ORDERED: EPTIFIBATIDE 2 MG/ML 10 ML VIAL IVP ONE (08:37)
[2020-06-26] MEDS ORDERED: ASPIRIN 81 MG EC TAB PO SCH (09:00)
[2020-06-26] MEDS ORDERED: PRAS10TA6 PO (09:45)
[2020-06-26] MEDS ORDERED: SODIUM CHLORIDE 0.9% 1000ML 1,000 ML IV SCH (09:45)
--- NOTE | 2020-06-26 10:10 | NUR ---
POST PROCEDURE RECEIVED PT FROM COMPUTER SYSTEMS ARCHITECT, IN FLAT POSITION, A&OX3, CALM COOPERATIVE AND DOES NOT APPEAR TO BE IN ANY DISTRESS NOR ANY NEURO DEFICITS PRESENT. RT GROIN SOFT NONTENDER WITH NO OOZING OR HEMATOMA PRESENT. DP/PT PULSES PALPABLE. PT ON BEDREST FOR 6 HOURS UNTIL 1530. CALL LIGHT WITHIN REACH, FAMILY AT BEDSIDE.
--- NOTE | 2020-06-26 16:00 | NUR ---
BEDREST COMPLETE PT SITTING ON SIDE OF BED, RT GROIN SOFT NONTENDER WITH NO OOZING OR HEMATOMA PRESENT. PT IS AMBULATORY, GAIT STEADY AND STRONG WITH STAND BY ASSIST. CALL LIGHT WITHIN REACH.
--- NOTE | 2020-06-26 18:02 | NUR ---
DISCHARGE INSTRUCTIONS GIVEN, PIV REMOVED AND INTACT, DISCHARGED HOME TO FAMILY VEHICLE VIA WHEELCHAIR.
--- NOTE | 2020-06-27 09:57 | NUR ---
Transitional Care - Post Discharge Note Spoke with patient at number listed. As per Mr Woodard, he states he feels great. Mr Woodard, states he has a follow up with his emergency services dispatcher today at 14:45, intends to keep his appointment and is taking discharge medications as ordered. The patient denied CP, SOB, fatigue, cough. Addendum: 06/27/20 at 1022 by INÉS JOHNSON Amended: Links added.
--- NOTE | 2020-06-27 18:23 | NUR ---
CALL TO PATIENT FOLLOW UP PHONE CALL MADE TO [phone], SPOKE WITH , PRITESH, INQUIRE IS MR.G. LEBRON GOT HIS PRESCRIPTION SAID " HE GOT IT".
== END 2020-06-26 18:03 | disposition home or self-care (01) | DRG 247 ==
LOC: EDH 13:34 → OBSVTOIN 16:40 → EDHIP 16:40 → INTOOBSV 16:40 → 3DH 06-25 00:29 → 4DH 06-26 10:22
PROVIDERS: ADMIT Internal Medicine Nephrology; ATTEND Internal Medicine Nephrology
PROC: 027035Z Dilation of Coronary Artery, One Artery with Two Drug-eluting Intraluminal Devices, Percutaneous Approach (ICD-10-PCS; principal; 2020-06-26)
PROC: 4A023N7 Measurement of Cardiac Sampling and Pressure, Left Heart, Percutaneous Approach (ICD-10-PCS; 2020-06-26)
PROC: B2111ZZ Fluoroscopy of Multiple Coronary Arteries using Low Osmolar Contrast (ICD-10-PCS; 2020-06-26)
PROC: B2151ZZ Fluoroscopy of Left Heart using Low Osmolar Contrast (ICD-10-PCS; 2020-06-26)
PROC: B2181ZZ Fluoroscopy of Left Internal Mammary Bypass Graft using Low Osmolar Contrast (ICD-10-PCS; 2020-06-26)
PROC: B2131ZZ Fluoroscopy of Multiple Coronary Artery Bypass Grafts using Low Osmolar Contrast (ICD-10-PCS; 2020-06-26)
PROC: B41F1ZZ Fluoroscopy of Right Lower Extremity Arteries using Low Osmolar Contrast (ICD-10-PCS; 2020-06-26)
DX: T82.857A Stenosis of other cardiac prosthetic devices, implants and grafts, initial encounter (principal); I25.110 Atherosclerotic heart disease of native coronary artery with unstable angina pectoris; J44.9 Chronic obstructive pulmonary disease, unspecified; I70.202 Unspecified atherosclerosis of native arteries of extremities, left leg; H93.19 Tinnitus, unspecified ear; E78.2 Mixed hyperlipidemia; E11.42 Type 2 diabetes mellitus with diabetic polyneuropathy; I12.9 Hypertensive chronic kidney disease with stage 1 through stage 4 chronic kidney disease, or unspecified chronic kidney disease; E11.51 Type 2 diabetes mellitus with diabetic peripheral angiopathy without gangrene; E66.9 Obesity, unspecified; N18.9 Chronic kidney disease, unspecified; E11.22 Type 2 diabetes mellitus with diabetic chronic kidney disease; Z20.828 Contact with and (suspected) exposure to other viral communicable diseases; Y83.2 Surgical operation with anastomosis, bypass or graft as the cause of abnormal reaction of the patient, or of later complication, without mention of misadventure at the time of the procedure; Z95.1 Presence of aortocoronary bypass graft; Z88.8 Allergy status to other drugs, medicaments and biological substances; Z87.891 Personal history of nicotine dependence; Z82.49 Family history of ischemic heart disease and other diseases of the circulatory system; Z82.3 Family history of stroke; Z83.3 Family history of diabetes mellitus; Z68.34 Body mass index [BMI] 34.0-34.9, adult; Z86.19 Personal history of other infectious and parasitic diseases; Z79.899 Other long term (current) drug therapy; Z88.6 Allergy status to analgesic agent; Y92.89 Other specified places as the place of occurrence of the external cause; I25.2 Old myocardial infarction
CPT/HCPCS: 36415; 71045; 80048; 80053; 80061; 80305; 81001; 82010; 82550; 82948; 84100; 84484; 85025; 85610; 85730; 87426; 93005; 93459; 99156; 99157; C1760; C1884; C1887; C1894; C9604; G0378; J0583; J1327; J1644; J1650; J1815; J2250; J3010; J3490; J7030; Q9967; U0003

== ENCOUNTER 2020-10-07 12:27 | Emergency (ER) | payer OTHER ==
[~2020-10-07 12:27] MED LIST changes: -ACET650T9 PO; +AMOX-429 PO; -BENZ-51 PO; +BENZ-70 PO; -BUDE10.2 IH; +CETI-89 PO; -CLOP75TA14 PO; -ESOM20CA31 PO; +INSU100I26 SQ; -ISOS60TA4 PO; +ISOS60TA77 PO; -LISI-613 PO; +LISI20TA24 PO; +MONT-39 PO; -MONT10TA96 PO; +PANT40TA54 PO; +PRAS10TA6 PO
[2020-10-07] MEDS ORDERED: HYDROCODONE/ACETAMINOPHEN 10/325 MG TAB ONE (12:51)
[2020-10-07] MEDS ORDERED: CYCLOBENZAPRINE HCL 10 MG TABLET ONE (12:51)
[2020-10-07] MEDS ORDERED: KETOROLAC 60 MG VIAL (30MG/ML) ONE (12:51)
[2021-02-22] MEDS ORDERED: OMEP20CA12 PO (09:51)
[2021-02-22] MEDS ORDERED: INSU100V37 SQ (09:51)
[2021-02-22] MEDS ORDERED: SEMA1PEN3 SQ (09:51)
[2021-02-22] MEDS ORDERED: BUDE10.26 IH (09:51)
[2021-02-22] MEDS ORDERED: GLIP10TA9 PO (09:51)
[2021-02-22] MEDS ORDERED: METF-444 PO (09:51)
== END 2020-10-07 14:29 | disposition home or self-care (01) ==
LOC: EDH 12:27
DX: M54.42 Lumbago with sciatica, left side (principal); I10 Essential (primary) hypertension; E11.9 Type 2 diabetes mellitus without complications; E78.5 Hyperlipidemia, unspecified; I25.10 Atherosclerotic heart disease of native coronary artery without angina pectoris; J44.9 Chronic obstructive pulmonary disease, unspecified; Z88.6 Allergy status to analgesic agent; Z87.891 Personal history of nicotine dependence; Z95.1 Presence of aortocoronary bypass graft; Z79.899 Other long term (current) drug therapy
CPT/HCPCS: 72100; 96372; 99283; J1885

== ENCOUNTER 2020-10-25 13:00 | Emergency (ER) | payer OTHER ==
[2020-10-25 13:55] LABS: BASOPHILS % (AUTO) 0.8 % (0.0-5.0); EOSINOPHILS % (AUTO) 2.5 % (0.0-8.0); LYMPHOCYTES % (AUTO) 26.3 % (21.0-51.0); MEAN CORPUSCULAR HEMOGLOBIN 25.9 pg (27.0-33.0); MEAN CORPUSCULAR HGB CONC 31.8 g/dL (32.0-36.0); MEAN CORPUSCULAR VOLUME 81.5 fL (79-99); MONOCYTES % (AUTO) 6.3 % (3.0-13.0); NEUTROPHILS % (AUTO) 63.1 % (40.0-77.0); PLATELET COUNT (AUTO) 134 K/uL (130-400); RED BLOOD CELL COUNT(AUTO) 4.05 MIL/uL (4.50-6.20); RED CELL DISTRIBUTION WIDTH 14.9 % (11.0-15.5); WHITE BLOOD COUNT (AUTO) 5.2 K/uL (4.8-10.8)
[2020-10-25 14:13] LABS: CREATININE 1.2 mg/dL (0.5-1.5); POTASSIUM 3.9 mmol/L (3.5-5.1)
[2020-10-25 14:17] LABS: ALBUMIN 3.5 g/dL (3.5-5.0); BILIRUBIN,TOTAL 0.6 mg/dL (0.2-1.0); TOTAL PROTEIN, SERUM 6.7 g/dL (6.0-8.3)
[2020-10-25 14:54] LABS: APPEARANCE,URINE SL CLOUDY (CLEAR); BILIRUBIN,URINE NEGATIVE (NEGATIVE); COLOR,URINE YELLOW (YELLOW); GLUCOSE, URINE (UA) >=1000 mg/dL (NEGATIVE); KETONES,URINE NEGATIVE (NEGATIVE); LEUKOCYTE ESTERASE ,URINE NEGATIVE (NEGATIVE); NITRATE,URINE NEGATIVE (NEGATIVE); OCCULT BLOOD,URINE NEGATIVE (NEGATIVE); PROTEIN,URINE NEGATIVE (NEGATIVE); UROBILINOGEN,URINE 0.2 mg/dL (0.2-1.0)
[2020-10-25 15:01] LABS: AMPHET/METH SCREEN,URINE NEGATIVE (NEGATIVE); BACTERIA,URINE Rare /HPF (None Seen); BARBITURATE SCREEN, URINE NEGATIVE (NEGATIVE); BENZODIAZEPINES SCREEN,URINE NEGATIVE (NEGATIVE); CANNABINOID SCREEN,URINE NEGATIVE (NEGATIVE); COCAINE SCREEN,URINE NEGATIVE (NEGATIVE); OPIATE SCREEN,URINE NEGATIVE (NEGATIVE); PHENCYCLIDINE SCREEN,URINE NEGATIVE (NEGATIVE); RBC,URINE 0-1 /HPF (0-1)
[2020-10-25 15:02] LABS: MUCUS,URINE Few LPF (None Seen); SPERM,URINE Moderate /HPF (None Seen); SQUAMOUS EPITHELIAL CELL,UR Rare /HPF (0-2)
[2021-02-22] MEDS ORDERED: OMEP20CA12 PO (09:51)
[2021-02-22] MEDS ORDERED: INSU100V37 SQ (09:51)
[2021-02-22] MEDS ORDERED: SEMA1PEN3 SQ (09:51)
[2021-02-22] MEDS ORDERED: METF-444 PO (09:51)
[2021-02-22] MEDS ORDERED: GLIP10TA9 PO (09:51)
[2021-02-22] MEDS ORDERED: BUDE10.26 IH (09:51)
== END 2020-10-25 15:39 | disposition home or self-care (01) ==
LOC: EDH 13:00
DX: S30.1XXA Contusion of abdominal wall, initial encounter (principal); S39.91XA Unspecified injury of abdomen, initial encounter; I25.10 Atherosclerotic heart disease of native coronary artery without angina pectoris; J44.9 Chronic obstructive pulmonary disease, unspecified; E11.9 Type 2 diabetes mellitus without complications; E78.5 Hyperlipidemia, unspecified; I10 Essential (primary) hypertension; Z87.891 Personal history of nicotine dependence; Z88.6 Allergy status to analgesic agent; X58.XXXA Exposure to other specified factors, initial encounter; Y93.89 Activity, other specified; Y92.89 Other specified places as the place of occurrence of the external cause; Y99.8 Other external cause status
CPT/HCPCS: 36415; 80053; 80305; 81001; 83690; 85025

== ENCOUNTER 2021-01-07 19:34 | Emergency (ER) | payer MEDICAID, OTHER ==
[~2021-01-07 19:34] MED LIST changes: -MONT-39 PO; +MONT10TA32 PO
[2021-01-07 19:46] VITALS: BP 180/92
[2021-01-07 20:09] LABS: BASOPHILS % (AUTO) 0.6 % (0.0-5.0); EOSINOPHILS % (AUTO) 1.8 % (0.0-8.0); HEMATOCRIT 39.8 % (42-54); LYMPHOCYTES % (AUTO) 12.1 % (21.0-51.0); MEAN CORPUSCULAR HEMOGLOBIN 25.6 pg (27.0-33.0); MEAN CORPUSCULAR HGB CONC 31.7 g/dL (32.0-36.0); MEAN CORPUSCULAR VOLUME 80.7 fL (79-99); MONOCYTES % (AUTO) 1.5 % (3.0-13.0); NEUTROPHILS % (AUTO) 83.2 % (40.0-77.0); PLATELET COUNT (AUTO) 151 K/uL (130-400); RED BLOOD CELL COUNT(AUTO) 4.93 MIL/uL (4.50-6.20); RED CELL DISTRIBUTION WIDTH 15.2 % (11.0-15.5); WHITE BLOOD COUNT (AUTO) 7.2 K/uL (4.8-10.8)
[2021-01-07] MEDS ORDERED: ONDANSETRON 4MG INJ IVP ONE (20:15)
[2021-01-07] MEDS ORDERED: 0.9%NACL 500ML 500 ML IV SCH (20:15)
[2021-01-07] MEDS ORDERED: FAMOTIDINE 20MG VIAL IV ONE (20:15)
[2021-01-07] MEDS ORDERED: PANTOPRAZOLE 40 MG/VIAL IVP SCH (20:15)
[2021-01-07] MEDS ORDERED: DiphenhydrAMINE HCL 50 MG/ML VIAL IV ONE (20:15)
[2021-01-07 20:20] LABS: CARBON DIOXIDE 18 mmol/L (21-32); CHLORIDE 101 mmol/L (101-111); CREATININE 1.2 mg/dL (0.5-1.5); GLOMERULAR FILTR. RATE CALC 65 mL/min (>60); GLUCOSE,RANDOM 350 mg/dL (70-105); POTASSIUM 4.4 mmol/L (3.5-5.1); SODIUM SERUM 138 mmol/L (136-145); UREA NITROGEN, BLOOD 17 mg/dL (7-18)
[2021-01-07 20:22] LABS: INR 0.95 (0.85-1.15); PROTHROMBIN TIME 10.4 SEC (9.6-11.6)
[2021-01-07 20:30] LABS: ALANINE AMINOTRANSFERASE 26 U/L (12-78); ALBUMIN 3.9 g/dL (3.5-5.0); BILIRUBIN,TOTAL 0.5 mg/dL (0.2-1.0); CREATINE KINASE, TOTAL 27 U/L (21-232); MYOGLOBIN 31 ng/mL (10-92); TOTAL PROTEIN, SERUM 8.3 g/dL (6.0-8.3); TROPONIN I < 0.04 ng/mL (0.00-0.06)
[2021-01-07 20:42] LABS: ASPARTATE AMINOTRANSFERASE 13 U/L (10-37)
[2021-01-07] MEDS ORDERED: 0.9%NACL 500ML 500 ML IV ONE (21:12)
[2021-01-07 22:26] VITALS: BP 139/76
[2021-01-07] MEDS ORDERED: HYDR25CA PO (22:46)
== END 2021-01-07 23:15 | disposition home or self-care (01) ==
LOC: EDH 19:34
DX: F43.9 Reaction to severe stress, unspecified (principal); R07.89 Other chest pain; R11.2 Nausea with vomiting, unspecified; E11.9 Type 2 diabetes mellitus without complications; I10 Essential (primary) hypertension; E66.9 Obesity, unspecified; Z79.4 Long term (current) use of insulin; Z79.899 Other long term (current) drug therapy; Z87.891 Personal history of nicotine dependence; Z79.82 Long term (current) use of aspirin; Z88.8 Allergy status to other drugs, medicaments and biological substances; Z88.5 Allergy status to narcotic agent; Z88.6 Allergy status to analgesic agent
CPT/HCPCS: 36415; 71045; 80053; 82550; 83690; 83874; 84484 ×2; 85025; 85610; 93005; 96361; 96374; 96375; 99285; J1200; J2405; J7040; S0028; S0164; C9113; J3490

== ENCOUNTER 2021-05-08 14:57 | Emergency (ER) | payer MEDICAID ==
[~2021-05-08] VITALS: Ht 177.8 cm; Wt 106.6 kg
[~2021-05-08 14:57] MED LIST changes: +BUDE10.26 IH; +HYDR25CA PO; +INSU100V37 SQ; +METF-444 PO; +MONT-39 PO; -MONT10TA32 PO; +OMEP20CA12 PO; +SEMA1PEN3 SQ
[2021-05-08] MEDS ORDERED: LIDOCAINE HCL 1% 20 ML VIAL ONE (15:20)
[2021-05-08] MEDS ORDERED: TETANUS/DIPHTHERIA TOXOID [ADULT] 0.5 ML VIAL IM ONE ×2 (15:30→15:46)
[2021-05-08] MEDS ORDERED: CEPHALEXIN 500 MG CAPSULE PO ONE (15:30)
[2021-05-08] MEDS ORDERED: LIDOCAINE 1%-EPI 1:100,000 20 ML VIAL IJ SCH (15:30)
[2021-05-08] MEDS ORDERED: CEPHALEXIN 500 MG CAPSULE ONE (15:46)
[2021-05-08] MEDS ORDERED: CEPH500B PO (15:58)
[2021-05-08 16:44] VITALS: BP 133/84
== END 2021-05-08 17:36 | disposition home or self-care (01) ==
LOC: EDH 14:57
DX: S81.811A Laceration without foreign body, right lower leg, initial encounter (principal); E11.9 Type 2 diabetes mellitus without complications; E78.00 Pure hypercholesterolemia, unspecified; F32.9 Major depressive disorder, single episode, unspecified; I10 Essential (primary) hypertension; E66.9 Obesity, unspecified; J44.9 Chronic obstructive pulmonary disease, unspecified; Z88.6 Allergy status to analgesic agent; Z88.5 Allergy status to narcotic agent; Z88.8 Allergy status to other drugs, medicaments and biological substances; Z79.899 Other long term (current) drug therapy; Z95.1 Presence of aortocoronary bypass graft; Z79.4 Long term (current) use of insulin; Z79.82 Long term (current) use of aspirin; Z86.16 Personal history of COVID-19; Z68.33 Body mass index [BMI] 33.0-33.9, adult; W18.02XA Striking against glass with subsequent fall, initial encounter; Y93.89 Activity, other specified; Y92.89 Other specified places as the place of occurrence of the external cause; Y99.8 Other external cause status
CPT/HCPCS: 12002; 73562; 90471; 90714

== ENCOUNTER 2021-05-25 11:28 | Emergency (ER) | payer OTHER, MEDICAID ==
[~2021-05-25] VITALS: Ht 177.8 cm; Wt 108.0 kg
[~2021-05-25 11:28] MED LIST changes: +CEPH500B PO
[2021-05-25 12:54] VITALS: BP 139/68
== END 2021-05-25 13:06 | disposition home or self-care (01) ==
LOC: EDH 11:28
DX: B34.9 Viral infection, unspecified (principal); J02.9 Acute pharyngitis, unspecified; Z20.822 Contact with and (suspected) exposure to COVID-19; F41.9 Anxiety disorder, unspecified; J44.9 Chronic obstructive pulmonary disease, unspecified; E78.00 Pure hypercholesterolemia, unspecified; I10 Essential (primary) hypertension; Z88.6 Allergy status to analgesic agent; Z88.8 Allergy status to other drugs, medicaments and biological substances; Z79.899 Other long term (current) drug therapy
CPT/HCPCS: 87635; 87804 ×2; 87880; 99283; C9803

== ENCOUNTER 2021-08-14 14:39 | Emergency (ER) | payer MEDICAID, OTHER ==
[~2021-08-14] VITALS: Ht 177.8 cm; Wt 108.0 kg
[2021-08-14 15:23] LABS: INFLUENZA TYPE A NEGATIVE FOR TYPE A (NEG)
[2021-08-14 15:24] LABS: INFLUENZA TYPE B NEGATIVE FOR TYPE B (NEG)
[2021-08-14] MEDS ORDERED: D-ME1POW16 PO (15:38)
[2021-08-14] MEDS ORDERED: NIRM1TAB PO (15:38)
[2021-08-14 16:22] VITALS: BP 136/86
== END 2021-08-14 16:23 | disposition home or self-care (01) ==
LOC: EDH 14:39
DX: U07.1 COVID-19 (principal); E11.9 Type 2 diabetes mellitus without complications; E78.00 Pure hypercholesterolemia, unspecified; J44.9 Chronic obstructive pulmonary disease, unspecified; I10 Essential (primary) hypertension; Z95.0 Presence of cardiac pacemaker; Z98.890 Other specified postprocedural states; Z79.82 Long term (current) use of aspirin; Z79.4 Long term (current) use of insulin; Z79.899 Other long term (current) drug therapy; Z88.6 Allergy status to analgesic agent; Z88.8 Allergy status to other drugs, medicaments and biological substances
CPT/HCPCS: 87635; 87804 ×2; 87880; 99283; C9803

== ENCOUNTER 2022-02-17 15:32 | Emergency (ER) | payer OTHER, MEDICARE ==
[~2022-02-17] VITALS: Ht 177.8 cm; Wt 108.0 kg
[~2022-02-17 15:32] MED LIST changes: -AMOX-429 PO; +ASPI-1114 PO; -ASPI-556 PO; -BENZ-70 PO; -CEPH500B PO; -CETI-89 PO; +ESOM40CA54 PO; +HYDR-4068 PO; -HYDR25CA PO; +LISI10TA24 PO; -LISI20TA24 PO; -METF-446 PO; -METO-391 PO; +METO50TA18 PO; -PANT40TA54 PO; +RANO10005 PO; -SEMA1PEN3 SQ
[2022-02-17] MEDS ORDERED: ACET-66 PO (17:45)
[2022-02-17 18:10] VITALS: BP 133/84
== END 2022-02-17 18:13 | disposition home or self-care (01) ==
LOC: EDH 15:32
DX: M25.532 Pain in left wrist (principal); M25.512 Pain in left shoulder; M79.642 Pain in left hand; E11.9 Type 2 diabetes mellitus without complications; I10 Essential (primary) hypertension; J44.9 Chronic obstructive pulmonary disease, unspecified; Z88.5 Allergy status to narcotic agent; Z88.6 Allergy status to analgesic agent; Z88.8 Allergy status to other drugs, medicaments and biological substances; I25.2 Old myocardial infarction; Z79.4 Long term (current) use of insulin; Z79.82 Long term (current) use of aspirin; Z79.899 Other long term (current) drug therapy; Z86.718 Personal history of other venous thrombosis and embolism; Z95.1 Presence of aortocoronary bypass graft; V49.49XA Driver injured in collision with other motor vehicles in traffic accident, initial encounter; Y93.89 Activity, other specified; Y92.89 Other specified places as the place of occurrence of the external cause; Y99.8 Other external cause status
CPT/HCPCS: 29125; 73030; 73100; 73130

== ENCOUNTER 2022-06-10 17:43 | Emergency (ER) | payer OTHER, MEDICARE ==
[~2022-06-10] VITALS: Ht 177.8 cm; Wt 112.5 kg
[~2022-06-10 17:43] MED LIST changes: +ACET-66 PO
[2022-06-10 18:10] LABS: BASOPHILS % (AUTO) 0.6 % (0.0-5.0); EOSINOPHILS % (AUTO) 2.1 % (0.0-8.0); LYMPHOCYTES % (AUTO) 31.1 % (21.0-51.0); MEAN CORPUSCULAR HEMOGLOBIN 28.2 pg (27.0-33.0); MEAN CORPUSCULAR HGB CONC 33.1 g/dL (32.0-36.0); MEAN CORPUSCULAR VOLUME 85.3 fL (79-99); MONOCYTES % (AUTO) 7.6 % (3.0-13.0); PLATELET COUNT (AUTO) 123 K/uL (130-400); RED BLOOD CELL COUNT(AUTO) 4.57 MIL/uL (4.50-6.20); RED CELL DISTRIBUTION WIDTH 14.3 % (11.0-15.5); WHITE BLOOD COUNT (AUTO) 5.3 K/uL (4.8-10.8)
[2022-06-10 18:27] LABS: ALBUMIN 3.6 g/dL (3.5-5.0); CREATININE 1.2 mg/dL (0.5-1.5); POTASSIUM 4.2 mmol/L (3.5-5.1); TOTAL PROTEIN, SERUM 7.7 g/dL (6.0-8.3)
[2022-06-10] MEDS ORDERED: DiphenhydrAMINE HCL 50 MG/ML VIAL IV ONE (18:30)
[2022-06-10] MEDS ORDERED: METOCLOPRAMIDE 10 MG/2 ML VIAL IVP ONE (18:30)
[2022-06-10 18:41] LABS: B-TYPE NATRIURETIC PEPTIDE 52 pg/mL (0-100)
[2022-06-10 19:23] LABS: APPEARANCE,URINE CLEAR (CLEAR); BILIRUBIN,URINE NEGATIVE (NEGATIVE); COLOR,URINE LIGHT-YELLOW (YELLOW); GLUCOSE, URINE (UA) >=1000 mg/dL (NEGATIVE); KETONES,URINE NEGATIVE (NEGATIVE); LEUKOCYTE ESTERASE ,URINE NEGATIVE Leu/uL (NEGATIVE); NITRATE,URINE NEGATIVE (NEGATIVE); OCCULT BLOOD,URINE NEGATIVE (NEGATIVE); PROTEIN,URINE NEGATIVE (NEGATIVE); UROBILINOGEN,URINE 0.2 mg/dL (0.2-1.0)
[2022-06-10 19:26] LABS: RBC,URINE 0-1 /HPF (0-1); SQUAMOUS EPITHELIAL CELL,UR RARE /HPF (0-2); WBC,URINE 0-1 /HPF (0-1)
[2022-06-10 20:52] VITALS: BP 105/55
== END 2022-06-10 21:12 | disposition home or self-care (01) ==
LOC: EDH 17:43
DX: R07.89 Other chest pain (principal); J44.9 Chronic obstructive pulmonary disease, unspecified; E11.9 Type 2 diabetes mellitus without complications; I10 Essential (primary) hypertension; I25.2 Old myocardial infarction; Z88.6 Allergy status to analgesic agent; Z88.8 Allergy status to other drugs, medicaments and biological substances; Z79.899 Other long term (current) drug therapy; Z79.4 Long term (current) use of insulin; Z79.84 Long term (current) use of oral hypoglycemic drugs; Z98.890 Other specified postprocedural states; Z86.718 Personal history of other venous thrombosis and embolism
CPT/HCPCS: 99285; 96374; 71045; 96375; 84484; 80053; 83880; 85025; 81001; 36415; 93005; J1200; J2765

== ENCOUNTER 2022-07-02 14:30 | Emergency (ER) | payer OTHER, MEDICARE ==
[~2022-07-02] VITALS: Ht 177.8 cm; Wt 108.9 kg
[~2022-07-02 14:30] MED LIST changes: -INSU100I26 SQ; -LISI10TA24 PO; +LISI2.5T13 PO; -OMEP20CA12 PO
[2022-07-02 15:17] VITALS: BP 141/74
[2022-07-02] MEDS ORDERED: MOLN200C PO (16:34)
[2022-07-02] MEDS ORDERED: BENZ-39 PO (16:34)
== END 2022-07-02 16:39 | disposition home or self-care (01) ==
LOC: EDH 14:30
DX: B34.9 Viral infection, unspecified (principal); Z20.822 Contact with and (suspected) exposure to COVID-19; I25.10 Atherosclerotic heart disease of native coronary artery without angina pectoris; J44.9 Chronic obstructive pulmonary disease, unspecified; E11.9 Type 2 diabetes mellitus without complications; E78.00 Pure hypercholesterolemia, unspecified; I10 Essential (primary) hypertension; Z88.6 Allergy status to analgesic agent; Z79.899 Other long term (current) drug therapy; Z79.82 Long term (current) use of aspirin; Z79.4 Long term (current) use of insulin; Z79.84 Long term (current) use of oral hypoglycemic drugs; Z98.890 Other specified postprocedural states
CPT/HCPCS: 99285; 71046; 87635; 87880; 87804 ×2; 93005 ×2; C9803

== ENCOUNTER 2022-12-05 15:08 | Emergency (ER) | payer BC, OTHER, MEDICARE ==
[~2022-12-05] VITALS: Ht 177.8 cm; Wt 108.9 kg
[~2022-12-05 15:08] MED LIST changes: +BENZ-39 PO; +MOLN200C PO
[2022-12-05 15:34] LABS: EOSINOPHILS % (AUTO) 1.5 % (0.0-8.0); LYMPHOCYTES % (AUTO) 33.8 % (21.0-51.0); MEAN CORPUSCULAR HEMOGLOBIN 28.5 pg (27.0-33.0); MEAN CORPUSCULAR HGB CONC 32.8 g/dL (32.0-36.0); MEAN CORPUSCULAR VOLUME 87.1 fL (79-99); NEUTROPHILS % (AUTO) 55.7 % (40.0-77.0); PLATELET COUNT (AUTO) 127 K/uL (130-400); RED BLOOD CELL COUNT(AUTO) 4.59 MIL/uL (4.50-6.20); RED CELL DISTRIBUTION WIDTH 14.1 % (11.0-15.5); WHITE BLOOD COUNT (AUTO) 5.3 K/uL (4.8-10.8)
[2022-12-05 15:38] LABS: POTASSIUM 4.3 mmol/L (3.5-5.1)
[2022-12-05 15:42] LABS: ALBUMIN 2.1 g/dL (3.5-5.0); TOTAL PROTEIN, SERUM 7.4 g/dL (6.0-8.3)
[2022-12-05 16:35] LABS: APPEARANCE,URINE CLEAR (CLEAR); BILIRUBIN,URINE NEGATIVE (NEGATIVE); COLOR,URINE LIGHT-YELLOW (YELLOW); GLUCOSE, URINE (UA) >=1000 mg/dL (NEGATIVE); KETONES,URINE NEGATIVE (NEGATIVE); LEUKOCYTE ESTERASE ,URINE NEGATIVE Leu/uL (NEGATIVE); NITRATE,URINE NEGATIVE (NEGATIVE); OCCULT BLOOD,URINE NEGATIVE (NEGATIVE); PROTEIN,URINE NEGATIVE (NEGATIVE); UROBILINOGEN,URINE 0.2 mg/dL (0.2-1.0)
[2022-12-05 16:44] LABS: BACTERIA,URINE None Seen /HPF (None Seen); RBC,URINE 0-1 /HPF (0-1); WBC,URINE 0-1 /HPF (0-1)
[2022-12-05 17:37] VITALS: BP 115/60
[2022-12-05] MEDS ORDERED: ACETAMINOPHEN 500 MG TABLET ONE (17:50)
[2022-12-05] MEDS ORDERED: ACETAMINOPHEN 500 MG TABLET PO ONE (18:00)
[2022-12-05] MEDS ORDERED: MORPHINE 2 MG SYG IVP ONE (19:00)
[2022-12-05] MEDS ORDERED: FLUC150T48 PO (19:32)
== END 2022-12-05 19:46 | disposition home or self-care (01) ==
LOC: EDH 15:08
DX: M25.562 Pain in left knee (principal); B37.42 Candidal balanitis; I10 Essential (primary) hypertension; E11.9 Type 2 diabetes mellitus without complications; E78.00 Pure hypercholesterolemia, unspecified; I25.10 Atherosclerotic heart disease of native coronary artery without angina pectoris; J44.9 Chronic obstructive pulmonary disease, unspecified; Z79.82 Long term (current) use of aspirin; Z79.84 Long term (current) use of oral hypoglycemic drugs; Z79.899 Other long term (current) drug therapy; Z88.5 Allergy status to narcotic agent; Z88.6 Allergy status to analgesic agent; Z88.8 Allergy status to other drugs, medicaments and biological substances; Z95.1 Presence of aortocoronary bypass graft; Z20.822 Contact with and (suspected) exposure to COVID-19; Z79.4 Long term (current) use of insulin
CPT/HCPCS: 36415; 71045; 73562; 80053; 81001; 83735; 84484; 85025; 87486; 87797; 93005; 96374

== ENCOUNTER 2023-08-04 11:11 | Emergency (ER) | payer BC, OTHER ==
[~2023-08-04] VITALS: Ht 177.8 cm; Wt 105.7 kg
[~2023-08-04 11:11] MED LIST changes: +FLUC150T48 PO
[2023-08-04 12:17] LABS: RAPID GROUP A STREP negative (NEGATIVE)
[2023-08-04 12:21] LABS: SARS-CoV-2, RNA, NAAT NEGATIVE SARS CoV-2 (NEGATIVE)
[2023-08-04 12:27] LABS: INFLUENZA TYPE A Negative For Type A (NEGATIVE); INFLUENZA TYPE B Negative For Type B (NEGATIVE)
[2023-08-04] MEDS ORDERED: FLUT16H NASAL (12:33)
[2023-08-04] MEDS ORDERED: BENZ200C53 PO (12:33)
[2023-08-04 12:50] VITALS: BP 133/74; PULSE 78; RESP 18; O2SAT 98
== END 2023-08-04 12:49 | disposition home or self-care (01) ==
LOC: EDH 11:11
DX: B34.9 Viral infection, unspecified (principal); R05.9 Cough, unspecified; I25.10 Atherosclerotic heart disease of native coronary artery without angina pectoris; J44.9 Chronic obstructive pulmonary disease, unspecified; E11.9 Type 2 diabetes mellitus without complications; E78.00 Pure hypercholesterolemia, unspecified; I10 Essential (primary) hypertension; Z79.02 Long term (current) use of antithrombotics/antiplatelets; Z20.822 Contact with and (suspected) exposure to COVID-19; Z79.4 Long term (current) use of insulin; Z79.82 Long term (current) use of aspirin; Z79.84 Long term (current) use of oral hypoglycemic drugs; Z79.899 Other long term (current) drug therapy; Z88.5 Allergy status to narcotic agent; Z88.6 Allergy status to analgesic agent; Z95.1 Presence of aortocoronary bypass graft
CPT/HCPCS: 87635; 87804; 87880; 93005

== ENCOUNTER 2024-01-30 12:47 | Emergency (ER) | payer MEDICARE, BC ==
[~2024-01-30] VITALS: Ht 177.8 cm; Wt 104.3 kg
[~2024-01-30 12:47] MED LIST changes: +BENZ200C53 PO; -ESOM40CA54 PO; +ESOM40CA66 PO; +FLUT16H NASAL
[2024-01-30 13:39] LABS: RAPID GROUP A STREP negative (NEGATIVE)
[2024-01-30 13:49] LABS: INFLUENZA TYPE A Negative For Type A (NEGATIVE); INFLUENZA TYPE B Negative For Type B (NEGATIVE)
[2024-01-30 14:16] LABS: SARS-CoV-2, RNA, NAAT POSITIVE SARS CoV-2 (NEGATIVE)
[2024-01-30 15:15] VITALS: BP 153/86; PULSE 91; RESP 16; O2SAT 97
[2024-01-30] MEDS: ACETAMINOPHEN 500 MG TABLET PO ONE (15:17)
[2024-01-30] MEDS ORDERED: AZIT250T9 PO (15:21)
[2024-01-30] MEDS ORDERED: BENZ-39 PO (15:21)
[2024-01-30] MEDS ORDERED: ALBUHFA IH (15:21)
== END 2024-01-30 15:30 | disposition home or self-care (01) ==
LOC: EDH 12:47
DX: U07.1 COVID-19 (principal); R05.9 Cough, unspecified; I25.10 Atherosclerotic heart disease of native coronary artery without angina pectoris; E11.9 Type 2 diabetes mellitus without complications; E78.00 Pure hypercholesterolemia, unspecified; I10 Essential (primary) hypertension; J44.9 Chronic obstructive pulmonary disease, unspecified; Z79.02 Long term (current) use of antithrombotics/antiplatelets; Z79.4 Long term (current) use of insulin; Z79.82 Long term (current) use of aspirin; Z79.84 Long term (current) use of oral hypoglycemic drugs; Z79.899 Other long term (current) drug therapy; Z88.5 Allergy status to narcotic agent; Z88.6 Allergy status to analgesic agent; Z95.1 Presence of aortocoronary bypass graft
CPT/HCPCS: 87635; 87804; 87880

== ENCOUNTER 2025-01-07 14:19 | Emergency (ER) | payer OTHER ==
[~2025-01-07] VITALS: Ht 177.8 cm; Wt 103.0 kg
[~2025-01-07 14:19] MED LIST changes: -ACET-66 PO; -ALBU8.5H8 IH; +ALBUHFA IH; -ASPI-1114 PO; +ASPI-1443 PO; -BENZ-39 PO; -BENZ200C53 PO; -BUDE10.26 IH; +CLOP-31 PO; -EMPA25TA PO; -ESOM40CA66 PO; +FENO48TA15 PO; +FISH1CAP20 PO; -FLUC150T48 PO; -FLUT15.845 NASAL; +FURO20TA4 PO; -GLIP10TA9 PO; -HYDR-4068 PO; -INSU100V37 SQ; -ISOS60TA77 PO; -LISI2.5T13 PO; -METF-444 PO; +METO-391 PO; -METO50TA18 PO; -MOLN200C PO; -NITR0.4T50 SL; -PRAS10TA6 PO; -RANO10005 PO; +SACU1TAB PO; -SERT50TA PO; +SPIR25TA6 PO
[2025-01-07] MEDS: 0.9%NACL 1000ML 1,000 ML IV SCH (14:30)
--- NOTE | 2025-01-07 14:32 | ERN ---
ED Note History of Present Illness Stated Complaint: LOW BLOOD PRESSURE,WEAKNESS,ABDOMNAL PAIN,SOB Time Seen by MD: 14:20 Dictation: PATIENT IS A 69-YEAR-OLD MALE STATES HE WAS AT HOME IN HIS USUAL STATE OF HEALTH APPROXIMATE HOUR AGO WHEN HE STATES HE JUST FELT A SUDDEN ONSET OF WEAKNESS IN A I THOUGHT MY BLOOD PRESSURE WAS DROPPING. HE DENIES ANY CHEST PAIN BACK PAIN NO SOB AT THE PRESENT TIME. NIH IS 0. HE STATES HE DOES HAVE A SIGNIFICANT HISTORY TO INCLUDE DIABETES CAD CABG X5 AND HYPERTENSION. STATES HE DID HAVE CHEST PAIN YESTERDAY HOWEVER DID NOT GO TO THE HOSPITAL BECAUSE IT WENT AWAY. Allergies: Coded Allergies: tramadol (Unverified Allergy, Mild, RASH, 10/07/24) metformin (Verified Allergy, Unknown, 05/27/20) STATES NOT ALLERGIC TO MEDICATION, TAKES MEDICATION DAILY Home Meds Active Scripts Aspirin (Aspirin EC) 81 Mg Tablet.dr, 1 TAB PO DAILY for 100 Days, #100 TAB 3 Refills Prov:OLIVIA MURILLO MD 10/30/24 Furosemide (Furosemide) 20 Mg Tablet, 1 TAB PO DAILY for 90 Days, #90 TAB 3 Refills Prov:OLIVIA MURILLO MD 10/30/24 Spironolactone (Spironolactone) 25 Mg Tablet, 1 TAB PO DAILY for 90 Days, #90 TAB 3 Refills Prov:OLIVIA MURILLO MD 10/30/24 Metoprolol Succinate (Metoprolol Succinate) 50 Mg Tab.er.24h, 50 MG PO DAILY for 90 Days, #90 TAB 3 Refills Prov:OLIVIA MURILLO MD 10/30/24 Sacubitril/Valsartan (Entresto 24 mg-26 mg Tablet) 24 Mg-26 Mg Tablet, 1 TAB PO BID for 90 Days, #180 TAB 3 Refills Prov:OLIVIA MURILLO MD 10/30/24 Atorvastatin Calcium (LIPITOR) 40 Mg Tablet, 40 MG PO HS for 90 Days, #90 TAB 3 Refills Prov:OLIVIA MURILLO MD 10/30/24 Buford-3 Fatty Acids/Fish Oil (Eql Fish Oil 1,000 mg Softgel) 300 Mg-1,000 Mg Capsule, 1000 MG PO BID, #60 CAP Prov:IRMA GUNN 10/15/24 Clopidogrel Bisulfate (Plavix) 75 Mg Tablet, 75 MG PO DAILY, #30 TAB Prov:IRMA GUNN PA 10/15/24 Fenofibrate (Tricor) 48 Mg Tab, 48 MG PO HS, #30 TAB 3 Refills Prov:IRMA GUNN 10/15/24 Albuterol Sulfate (Ventolin Hfa/Proventil Hfa/Proair Hfa) 90 Mcg Puff, 2 PUFF IH Q4H for WHEEZING, #1 INHALER 0 Refills Prov:KEERTHI LOCKWOOD PROVIDER NETWORK MANAGER 01/30/24 Fluticasone Propionate (Flonase Nasal [place]) 50 Mcg/Actuation [place], 1 MCG NASAL DAILY, #15 SPRAY Prov:ORESTES LYONS V CHIEF ULTRASOUND TECHNOLOGIST 08/04/23 Reported Medications Trazodone HCl (Trazodone HCl) 50 Mg Tablet, 50 MG PO HS PRN for INSOMNIA, TAB 05/19/19 Montelukast Sodium (Montelukast Sodium) 10 Mg Tablet, 10 MG PO HS, TAB 10/16/16 Past Medical History Past Medical History: CAD, COPD, Diabetes-Type II, Hypertension Additional Past Medical Hx: SPIDER BITE L LEG Surgical History: CABG Surgical History Other: CARDIAC STENTS Family History: Negative Social History: Negative, Other RN Note Reviewed/Agreed w/PFSH: Yes Review of System Dictation CONSTITUTIONAL: NEGATIVE EXCEPT FOR HPI TBW HEAD/FACE: NEGATIVE EXCEPT FOR HPI EENT: NEGATIVE EXCEPT FOR HPI RESPIRATORY: NEGATIVE EXCEPT FOR HPI GASTROINTESTINAL/ABDOMINAL: NEGATIVE EXCEPT FOR HPI GENITOURINARY: NEGATIVE EXCEPT FOR HPI MUSCULOSKELETAL: NEGATIVE EXCEPT FOR HPI INTEGUMENTARY: NEGATIVE EXCEPT FOR HPI NEUROLOGICAL/PSYCH: NEGATIVE EXCEPT FOR HPI HEMATOLOGIC/LYMPHATIC: NEGATIVE EXCEPT FOR HPI ALL SYSTEMS NEGATIVE, EXCEPT NOTED ABOVE. 13 POINT REVIEW OF SYSTEMS ASSESSED AND ALL NEGATIVE EXCEPT FOR ABOVE. Initial Vital Sign VS Vital Signs Date Time Temp Pulse Resp B/P (MAP) Pulse Ox O2 Delivery O2 Flow Rate FiO2 01/07/25 14:40 98.4 92 16 117/70 98 Room Air 0 Physical Exam Dictation VITAL SIGNS REVIEWED GENERAL APPEARANCE: ALERT, ORIENTED X 3, NO ACUTE DISTRESS, WELL DEVELOPED, NOURISHED. NO PAIN AT THE PRESENT TIME, OBESE HEAD AND FACE: NON-TRAUMATIC. EYES: PERRL, PINK CONJUNCTIVAS, EYELID NO TRAUMA, ANTERIOR CHAMBER WITH ARCUS SENILIS. EARS: PINNAS INTACT AND NO SIGNS OF TRAUMA OR ERYTHEMA EAR CANALS CLEAR AND NO DISCHARGE TM NO ERYTHEMA NOSE: NO DISCHARGE, NO BLEEDING. OROPHARYNX: MOUTH NORMAL, TONGUE PINK, PHARYNX CLEAR,NO ERYTHEMA, TONSILS NO EXUDATES, NO ABSCESSES NOTED, MUCOUS MEMBRANE MOIST NECK: SUPPLE, NON-TENDER, NO THYROMEGALY, NO MASSES, NO JVD, NO BRUITS BREAST:DEFERRED CHEST:NO TENDERNESS, NO CREPITUS, NO PARADOXICAL MOVEMENT, NO RETRACTIONS LUNGS:CLEAR, WELL-VENTILATED, SYMMETRIC, NO RALES, NO WHEEZING, NO RHONCHI, NO STRIDOR, GOOD BREATH SOUNDS BILATERALLY HEART: REGULAR RATE, REGULAR RHYTHM, NO MURMUR, NO GALLOPS VASCULAR: TRACE PERIPHERAL EDEMA, ABDOMEN: SOFT, POSITIVE BOWEL SOUNDS, NONDISTENDED, NO GUARDING, NONTENDER, NO REBOUND, NO MASSES NO HEPATOMEGALY, NO SPLENOMEGALY, NO DELGADO'S SIGN, NO HERNIAS. RECTAL: DEFERRED GENITAL: DEFERRED NEUROLOGICAL: NORMAL SPEECH, MOTOR FUNCTION INTACT, SENSORY FUNCTION INTACT MUSCULOSKELETAL: NECK NONTENDER, FULL RANGE OF MOTION, BACK NONTENDER, FULL RANGE OF MOTION, EXTREMITIES: NONTENDER, FULL RANGE OF MOTION SKIN: COLOR PINK, DRY, NO TURGOR, NO RASH, NO LACERATIONS, NO ABRASIONS, NO CONTUSIONS. LYMPHATIC: DEFERRED Results (Laboratory/Radiology) Laboratory/Radiology Laboratory Tests Test 01/07/25 16:12 White Blood Count 7.0 K/uL (4.8-10.8) Red Blood Count 4.59 MIL/uL (4.50-6.20) Hemoglobin 14.5 g/dL (14.0-18.0) Hematocrit 41.8 % (42-54) L Mean Corpuscular Volume 91.1 fL (79-99) Mean Corpuscular Hemoglobin 31.6 pg (27.0-33.0) Mean Corpuscular Hemoglobin Concent 34.7 g/dL (32.0-36.0) Red Cell Distribution Width 13.7 % (11.0-15.5) Platelet Count 152 K/uL (130-400) Mean Platelet Volume 11.4 fL (7.5-10.5) H Immature Granulocyte % (Auto) 1.0 % (0-1) Neutrophils (%) (Auto) 55.8 % (40.0-77.0) Lymphocytes (%) (Auto) 33.4 % (21.0-51.0) Monocytes (%) (Auto) 7.0 % (3.0-13.0) Eosinophils (%) (Auto) 2.1 % (0.0-8.0) Basophils (%) (Auto) 0.7 % (0.0-5.0) Neutrophils # (Auto) 3.9 K/uL (1.8-7.7) Lymphocytes # (Auto) 2.3 K/uL (1.0-4.8) Monocytes # (Auto) 0.5 K/uL (0.1-1.0) Eosinophils # (Auto) 0.15 K/uL (0.00-0.70) Basophils # (Auto) 0.05 K/uL (0.00-0.20) Absolute Immature Granulocyte (auto 0.07 K/uL (0-1) Nucleated Red Blood Cells 0.0 % (0.0-0.19) Sodium Level 140 mmol/L (136-145) Potassium Level 4.4 mmol/L (3.5-5.1) Chloride Level 103 mmol/L (101-111) Carbon Dioxide Level 29 mmol/L (21-32) Blood Urea Nitrogen 29 mg/dL (7-18) H Creatinine 1.3 mg/dL (0.5-1.3) Glomerular Filtration Rate Calc 60 mL/min (>90) Random Glucose 144 mg/dL (70-105) H Total Calcium 9.3 mg/dL (8.5-10.1) Magnesium Level 1.90 mg/dL (1.80-2.40) Troponin I High Sensitivity 15 ng/L (4-75) B-Type Natriuretic Peptide 90 pg/mL (0-100) Labs Reviewed?: Yes EKG Comment: Normal sinus rhythm/occasional unifocal PVCs/heart rate 89/axis normal ED Course ED Course Orders Procedure Category Date Status Time Cbc With Differential LAB 01/07/25 Complete 14:29 B-Type Natriuretic LAB 01/07/25 Complete Peptide 14:29 Chest 1vw RAD 01/07/25 Resulted 14:29 0.9%Nacl 1000ml (Ns PHA 01/07/25 In Process 1000ml) 14:30 Magnesium LAB 01/07/25 Complete 14:29 Troponin I High LAB 01/07/25 Complete Sensitivity 14:29 Urinalysis Profile LAB 01/07/25 Logged 14:29 Basic Metabolic Panel LAB 01/07/25 Complete 14:29 12 Lead Ekg Tracing- EKG 01/07/25 Complete Technical 14:42 Current Medications Medications (Trade) Dose Ordered Sig/Chelita Route PRN Reason Start Time Stop Time Status Last Admin Dose Admin Sodium Chloride 1,000 ml @ 0 mls/hr ONCE IV 01/07/25 14:30 01/08/25 14:29 Vital Signs Date Time Temp Pulse Resp B/P (MAP) Pulse Ox O2 Delivery O2 Flow Rate FiO2 01/07/25 14:40 98.4 92 16 117/70 98 Room Air 0 1720/patient is hemodynamically stable no pain no pressure at this time labs are unremarkable with unremarkable EKG troponin BNP etc. he has no anemia no electrolyte imbalance. Patient will be discharged home with his to follow up with his doctor in the next one or two days. He does not wish to stay in the hospital for further evaluation and treatment. HEART Score Response (Comments) Value EKG: Repolarization changes 1 Age: > 65yrs (+2) 2 Risk Factors: 3+ risk factors (+2) 2 Initial Troponin: Normal limit (0) 0 Total 5 Medical Decision Making MDM Medical decision-making basic labs to rule out a syncopal episode EKG/labs. No acute findings Patient hemodynamically stable wishes to go home and we will follow up his doctor DX & DISP Disposition: Discharge Departure Impression: Primary Impression: Vasovagal episode Additional Impressions: Mild dehydration, Diabetes mellitus with hyperglycemia Condition: Stable Additional Instructions: Follow-up with primary care provider in 1 to 2 days. Take medications as directed here in the emergency room. Okay to continue home medications unless otherwise discussed during your visit in the emergency room today. Return to your nearest emergency room if symptoms worsen or if there is no improvement. Call 911 if you need immediate assistance. Take Tylenol or Motrin [id number] as needed and if no contraindications are present. Increase oral hydration. A wound culture or urine culture was ordered here in the emergency room department please follow-up with primary care provider and advise them to get repeat ports from our facility. If you had any Clement wrap/splints that were applied here, please do not remove them until you see your primary care or specialty. Increase your water intake. , follow up with your primary care doctor in the next 1-2 days. Referrals: EDVIN FUNES MD (PCP) Time of Disposition: 17:25 I have reviewed the case, and I agree with, Diagnosis and Plan KEERTHI LOCKWOOD NP Jan 07, 2025 14:32
--- NOTE | 2025-01-07 15:24 | EKG ---
[facility] Test Date: 2025-01-07 Test Time: 14:42:52 Pat Name: BRUCE LEBRON Department: ED Room: Gender: M Smelting Engineer: [id number] : 1955 Requested By: TERRIE DELONG Order Number: [id number] Reading MD: Ranjit Michaud Measurements Intervals [place] Rate: 89 P: 6 VT: 146 QRS: 56 QRSD: 96 T: 38 QT: 381 QTc: 463 Interpretive Statements Sinus rhythm Ventricular premature complex Compared to ECG 10/27/2024 15:44:48 Ventricular premature complex(es) now present Myocardial infarct finding no longer present Electronically Signed On 01-09-2025 10:19:38 CDT by Ranjit Michaud Please click the below link to view image of tracing.
--- NOTE | 2025-01-07 15:53 | HMCIMG ---
CHEST 1VW HISTORY: Chest pain COMPARISON: 10/28/2024 FINDINGS: A frontal projection of the chest was obtained. No acute pulmonary infiltrates is seen. Poststernotomy changes are seen. The heart is enlarged. Degenerative changes of the thoracolumbar spine are present. Degenerative changes are seen. No evidence of aortic calcification is seen. IMPRESSION: 1. No acute pulmonary infiltrate is seen.
[2025-01-07 16:21] LABS: BASOPHILS # (AUTO) 0.05 K/uL (0.00-0.20); BASOPHILS % (AUTO) 0.7 % (0.0-5.0); EOSINOPHILS # (AUTO) 0.15 K/uL (0.00-0.70); EOSINOPHILS % (AUTO) 2.1 % (0.0-8.0); HEMATOCRIT 41.8 % (42-54); IMMATURE GRANULOCYTE ABSOLUTE 0.07 K/uL (0-1); LYMPHOCYTES # (AUTO) 2.3 K/uL (1.0-4.8); LYMPHOCYTES % (AUTO) 33.4 % (21.0-51.0); MEAN CORPUSCULAR HEMOGLOBIN 31.6 pg (27.0-33.0); MEAN CORPUSCULAR HGB CONC 34.7 g/dL (32.0-36.0); MEAN CORPUSCULAR VOLUME 91.1 fL (79-99); MONOCYTES # (AUTO) 0.5 K/uL (0.1-1.0); NEUTROPHILS # (AUTO) 3.9 K/uL (1.8-7.7); NEUTROPHILS % (AUTO) 55.8 % (40.0-77.0); PLATELET COUNT (AUTO) 152 K/uL (130-400); RED BLOOD CELL COUNT(AUTO) 4.59 MIL/uL (4.50-6.20); RED CELL DISTRIBUTION WIDTH 13.7 % (11.0-15.5)
[2025-01-07 16:36] LABS: CREATININE 1.3 mg/dL (0.5-1.3); POTASSIUM 4.4 mmol/L (3.5-5.1)
[2025-01-07 16:44] LABS: MAGNESIUM 1.9 mg/dL (1.80-2.40)
[2025-01-07 17:12] LABS: B-TYPE NATRIURETIC PEPTIDE 90 pg/mL (0-100)
[2025-01-07 18:02] VITALS: BP 115/65; PULSE 90; RESP 16; TEMP 98.1; O2SAT 98
== END 2025-01-07 18:12 | disposition home or self-care (01) ==
LOC: EDH 14:19
DX: R55 Syncope and collapse (principal); E86.0 Dehydration; E11.65 Type 2 diabetes mellitus with hyperglycemia; I10 Essential (primary) hypertension; I25.10 Atherosclerotic heart disease of native coronary artery without angina pectoris; J44.9 Chronic obstructive pulmonary disease, unspecified; Z79.02 Long term (current) use of antithrombotics/antiplatelets; Z79.82 Long term (current) use of aspirin; Z79.899 Other long term (current) drug therapy; Z88.5 Allergy status to narcotic agent; Z95.1 Presence of aortocoronary bypass graft; Z95.5 Presence of coronary angioplasty implant and graft
CPT/HCPCS: 36415; 71045; 80048; 83735; 83880; 84484; 85025; 93005; 99285

== ENCOUNTER 2025-01-28 21:19 | Emergency (ER) | payer OTHER ==
[~2025-01-28] VITALS: Ht 177.8 cm; Wt 106.1 kg
[2025-01-28 21:44] LABS: IMMATURE GRANULOCYTE ABSOLUTE 0.06 K/uL (0-1); NUCLEATED RED BLOOD CELLS 0.0 % (0.0-0.19); PLATELET COUNT (AUTO) 128 K/uL (130-400); RED BLOOD CELL COUNT(AUTO) 4.02 MIL/uL (4.50-6.20); RED CELL DISTRIBUTION WIDTH 13.2 % (11.0-15.5); WHITE BLOOD COUNT (AUTO) 5.4 K/uL (4.8-10.8)
[2025-01-28 21:49] LABS: CREATININE 1.6 mg/dL (0.5-1.3); GLOMERULAR FILTR. RATE CALC 47.0 mL/min (>90); GLUCOSE,RANDOM 207.0 mg/dL (70-105); SODIUM SERUM 143.0 mmol/L (136-145); UREA NITROGEN, BLOOD 31.0 mg/dL (7-18)
--- NOTE | 2025-01-28 21:55 | ERN ---
General Chief Complaint: Chest Pain Stated Complaint: C/O CP WITH JAW PAIN; TOOK 3 NITRO SL AFTER 1900 Time Seen by MD: 21:24 History of Present Illness Initial Comments 70-year-old male with a history of quintuple bypass two stents to his left leg diabetes hypertension comes in with chest pain. The pain started in his throat and migrated up to his jaw. He states that this is the pain he had when he had his initial heart attack. Patient took nitroglycerin tablets x3 and they only provided temporary relief. He has come in for further evaluation. Of note his blood pressure systolic is 157. Timing/Duration: 1-3 hours Severity: moderate Modifying Factors: improves with cold therapy, improves with eating, improves with immobilization, improves with medication, improves with movement, improves with rest, improves with other Allergies: Coded Allergies: tramadol (Unverified Allergy, Mild, RASH, 10/07/24) metformin (Verified Allergy, Unknown, 05/27/20) STATES NOT ALLERGIC TO MEDICATION, TAKES MEDICATION DAILY Home Meds Active Scripts Aspirin (Aspirin EC) 81 Mg Tablet.dr, 1 TAB PO DAILY for 100 Days, #100 TAB 3 Refills Prov:OLIVIA MURILLO MD 10/30/24 Furosemide (Furosemide) 20 Mg Tablet, 1 TAB PO DAILY for 90 Days, #90 TAB 3 Refills Prov:OLIVIA MURILLO MD 10/30/24 Spironolactone (Spironolactone) 25 Mg Tablet, 1 TAB PO DAILY for 90 Days, #90 TAB 3 Refills Prov:OLIVIA MURILLO MD 10/30/24 Metoprolol Succinate (Metoprolol Succinate) 50 Mg Tab.er.24h, 50 MG PO DAILY for 90 Days, #90 TAB 3 Refills Prov:OLIVIA MURILLO MD 10/30/24 Sacubitril/Valsartan (Entresto 24 mg-26 mg Tablet) 24 Mg-26 Mg Tablet, 1 TAB PO BID for 90 Days, #180 TAB 3 Refills Prov:OLIVIA MURILLO MD 10/30/24 Atorvastatin Calcium (LIPITOR) 40 Mg Tablet, 40 MG PO HS for 90 Days, #90 TAB 3 Refills Prov:OLIVIA MURILLO MD 10/30/24 [place]-3 Fatty Acids/Fish Oil (Eql Fish Oil 1,000 mg Softgel) 300 Mg-1,000 Mg Capsule, 1000 MG PO BID, #60 CAP Prov:IRMA GUNN 10/15/24 Clopidogrel Bisulfate (Plavix) 75 Mg Tablet, 75 MG PO DAILY, #30 TAB Prov:IRMA GUNN 10/15/24 Fenofibrate (Tricor) 48 Mg Tab, 48 MG PO HS, #30 TAB 3 Refills Prov:IRMA GUNN 10/15/24 Albuterol Sulfate (Ventolin Hfa/Proventil Hfa/Proair Hfa) 90 Mcg Puff, 2 PUFF IH Q4H for WHEEZING, #1 INHALER 0 Refills Prov:KEERTHI LOCKWOOD INSURANCE CLERK 01/30/24 Fluticasone Propionate (Flonase Nasal [place]) 50 Mcg/Actuation [place], 1 MCG NASAL DAILY, #15 SPRAY Prov:ORESTES LYONS V WOOD CARVING MACHINE OPERATOR 08/04/23 Reported Medications Trazodone HCl (Trazodone HCl) 50 Mg Tablet, 50 MG PO HS PRN for INSOMNIA, TAB 05/19/19 Montelukast Sodium (Montelukast Sodium) 10 Mg Tablet, 10 MG PO HS, TAB 10/16/16 Past Medical History Past Medical History: Diabetes-Type II, High Cholesterol, Hypertension Medical History Other: SPIDER BITE L LEG Past Surgical History: CABG, Other Surgical History Other: CARDIAC STENTS; QUINTUPLE BYPASS Family History Family History: Negative Social History Social History: Negative, Other Constitutional: (-) chills, (-) diaphoresis, (-) fever, (-) malaise, (-) we akness, (-) other documentation EENTM: (-) eye pain, (-) blurred vision, (-) tearing, (-) double vision, (-) ear pain, (-) ear discharge, (-) nose pain, (-) nose congestion, (-) throat pain, (-) Throat swelling, (-) mouth pain, (-) tooth pain, (-) mouth swelling, (-) other documentation Respiratory: (-) cough, (-) orthopnea, (-) short of breath, (-) stridor, (-) wheezing, (-) other documentation Cardiovascular: (+) chest pain Gastrointestinal/Abdominal: (-) nausea, (-) vomiting, (-) diarrhea, (-) abdominal pain, (-) abdominal distention, (-) constipation, (-) rectal bleeding, (-) dark stool/melena, (-) other documentation Musculoskeletal: (-) Neck pain, (-) back pain, (-) Flank Pain, (-) joint pain, (-) joint swelling, (-) muscle pain, (-) muscle stiffness, (-) gout, (-) other documentation Skin: (-) laceration, (-) contusion, (-) abrasion, (-) abscess, (-) rash, (-) change in color, (-) change in hair, (-) change in nails, (-) diaphoresis, (-) dryness, (-) other documentation Neuro: (+) headache Physical Exam General Appearance: (+) moderate distress Orientation: (+) alert, (+) oriented x 3 Eye: bilateral eye normal inspection, bilateral eye PERRL, bilateral eye EOMI Ear, Nose, Throat: (+) hearing grossly normal, (+) normal ENT inspection Neck: (+) normal inspection, (+) supple Respiratory: (+) chest non-tender, (+) lungs clear, (+) decreased breath sounds Heart: (+) regular, (+) no gallop Vascular: (+) no edema, (+) normal peripheral pulse Gastrointestinal: (+) soft, (+) non-tender, (+) bowel sound present Extremities: (+) normal range of motion Neurologic/Psychiatric: (+) normal speech Results Laboratory and Microbiology Lab and Micro Result Laboratory Tests Test 01/28/25 21:29 01/28/25 22:04 White Blood Count 5.4 K/uL (4.8-10.8) Red Blood Count 4.02 MIL/uL (4.50-6.20) L Hemoglobin 13.0 g/dL (14.0-18.0) L Hematocrit 38.2 % (42-54) L Mean Corpuscular Volume 95.0 fL (79-99) Mean Corpuscular Hemoglobin 32.3 pg (27.0-33.0) Mean Corpuscular Hemoglobin Concent 34.0 g/dL (32.0-36.0) Red Cell Distribution Width 13.2 % (11.0-15.5) Platelet Count 128 K/uL (130-400) L Mean Platelet Volume 11.1 fL (7.5-10.5) H Immature Granulocyte % (Auto) 1.1 % (0-1) H Neutrophils (%) (Auto) 49.6 % (40.0-77.0) Lymphocytes (%) (Auto) 39.5 % (21.0-51.0) Monocytes (%) (Auto) 6.5 % (3.0-13.0) Eosinophils (%) (Auto) 2.6 % (0.0-8.0) Basophils (%) (Auto) 0.7 % (0.0-5.0) Neutrophils # (Auto) 2.7 K/uL (1.8-7.7) Lymphocytes # (Auto) 2.1 K/uL (1.0-4.8) Monocytes # (Auto) 0.4 K/uL (0.1-1.0) Eosinophils # (Auto) 0.14 K/uL (0.00-0.70) Basophils # (Auto) 0.04 K/uL (0.00-0.20) Absolute Immature Granulocyte (auto 0.06 K/uL (0-1) Nucleated Red Blood Cells 0.0 % (0.0-0.19) Sodium Level 143 mmol/L (136-145) Potassium Level 4.5 mmol/L (3.5-5.1) Chloride Level 105 mmol/L (101-111) Carbon Dioxide Level 28 mmol/L (21-32) Blood Urea Nitrogen 31 mg/dL (7-18) H Creatinine 1.6 mg/dL (0.5-1.3) H Glomerular Filtration Rate Calc 47 mL/min (>90) Random Glucose 207 mg/dL (70-105) H Total Calcium 9.3 mg/dL (8.5-10.1) Total Creatine Kinase 28 U/L (21-232) # Troponin I High Sensitivity 43 ng/L (4-75) B-Type Natriuretic Peptide 197 pg/mL (0-100) H Urine Color LIGHT-YELLOW (YELLOW) Urine Appearance CLEAR (CLEAR) Urine pH 5.5 (5.0-8.0) Urine Specific [place] 1.028 (1.001-1.031) Urine Protein NEGATIVE mg/dL (NEGATIVE) Urine Glucose (UA) >=1000 mg/dL (NEGATIVE) H Urine Ketones NEGATIVE mg/dL (NEGATIVE) Urine Occult Blood NEGATIVE (NEGATIVE) Urine Nitrate NEGATIVE (NEGATIVE) Urine Bilirubin NEGATIVE mg/dL (NEGATIVE) Urine Urobilinogen 0.2 mg/dL (0.2-1.0) Urine Leukocyte Esterase NEGATIVE [place]/uL MDM MDM: Differential diagnosis: Patient maybe having an acute IA. I will not give him an aspirin as he is already on Plavix and daily aspirin.. He also has a high blood pressure I will try and control that as well the standard cardiac labs EKG etc. has been ordered give him some fluid as well. Rationale: Tests considered and ordered secondary to shared decision making include: Previous outside records reviewed: Old ER visits. Risk of complication and/or morbidity or mortality of patient management: None Medications-Per medication reconciliation Need for hospitalization: Patient does meet criteria for hospitalization. Need for emergency major/minor surgery: No There are no social concerns with this patient. Prescription drug management Prescriptions will include symptomatic care Patient's prior external medical records from other ER visits were reviewed by me as indicated. Prior testing and results from previous visits were reviewed. Prior tests were taken into account with medical decision making and resource utilization, independent historian/historians were used to obtain complete medical history. I independently interpreted the test that were performed, results were reviewed by me and considered findings on radiology if ordered. Patient's laboratory: Patient has anemia but a normal white blood cell count. Patient's chemistry panel shows a slight bump in his BUN in his creatinine. His beta natriuretic peptide is 197. Troponin is negative. Patient's urine has glucose in it but no urinary tract infection. EKGs normal. Patient feels fine after receiving a L and a half of fluid. I will discharge him from the hospital. ED Course Orders Procedure Category Date Status Time Vital Signs Per CPOE 01/28/25 Transmitted Routine 21:21 Chest 1vw RAD 01/28/25 Resulted 21:21 12 Lead Ekg Tracing- EKG 01/28/25 Logged Technical 21:21 Oxygen By Nc/Pulse Ox CPOE 01/28/25 Transmitted 21:21 Maintain Iv CPOE 01/28/25 Transmitted 21:21 Iv Insertion CPOE 01/28/25 Transmitted 21:21 Cardiac Monitoring CPOE 01/28/25 Transmitted 21:21 Pulse Oximetry With CPOE 01/28/25 Transmitted Vs And Prn 21:21 Cbc With Differential LAB 01/28/25 Complete 21:21 Activity: Br W/Brp CPOE 01/28/25 Transmitted With Assist 21:21 Creatine Kinase, Total LAB 01/28/25 Complete 21:21 Troponin I High LAB 01/28/25 Complete Sensitivity 21:21 Urinalysis Profile LAB 01/28/25 Complete 21:21 Basic Metabolic Panel LAB 01/28/25 Complete 21:21 B-Type Natriuretic LAB 01/28/25 Complete Peptide 21:47 12 Lead Ekg Tracing- EKG 01/28/25 Logged Technical 21:47 Lactated Ringers PHA 01/28/25 Complete 1000ml (Lactated 23:10 Current Medications Medications (Trade) Dose Ordered Sig/Chelita Route PRN Reason Start Time Stop Time Status Last Admin Dose Admin Lactated Ringer's (Lactated Ringers 1000ml) 1,000 ml BOLUS STAT IV 01/28/25 23:10 01/28/25 23:14 DC 01/28/25 23:27 Vital Signs Date Time Temp Pulse Resp B/P (MAP) Pulse Ox O2 Delivery O2 Flow Rate FiO2 01/28/25 23:31 98.4 73 18 121/62 100 Room Air* 0 21 01/28/25 22:32 67 19 113/54 100 Room Air* 0 21 01/28/25 21:31 73 19 154/82 100 Room Air* 0 21 01/28/25 21:22 98.4 77 20 157/78 99 Room Air DX & DISP Disposition: Discharge Departure Impression: Primary Impression: Mild dehydration Condition: Stable Additional Instructions: You have indications of dehydration. Your kidneys show that they have not been working as efficiently as in the past. I recommend you drink fluids every day into your urine runs clear at least once a day. I recommend you follow-up with your primary care physician in a week to make sure that your kidneys have returned to their normal function. Today you have no evidence of a heart attack. Referrals: EDVIN FUNES MD (PCP) CHRISTOPHER KHAN MD Jan 28, 2025 21:55
[2025-01-28 21:59] LABS: CREATINE KINASE, TOTAL 28.0 U/L (21-232)
--- NOTE | 2025-01-28 22:07 | NUR ---
PATIENT DENIES ANY MORE SYMPTOMS OF CHEST PAIN AT THIS TIME, STATES HE IS FEELING MUCH BETTER./ABBI
[2025-01-28 22:13] LABS: APPEARANCE,URINE CLEAR (CLEAR); GLUCOSE, URINE (UA) >=1000 mg/dL (NEGATIVE); LEUKOCYTE ESTERASE ,URINE NEGATIVE Leu/uL (NEGATIVE); NITRATE,URINE NEGATIVE (NEGATIVE); OCCULT BLOOD,URINE NEGATIVE (NEGATIVE)
[2025-01-28 22:14] LABS: ADD UA MICROSCOPIC NO
--- NOTE | 2025-01-28 22:28 | HMCIMG ---
EXAM: CR Chest, 1 View. CLINICAL HISTORY: CHEST PAIN COMPARISON: None provided. FINDINGS: LUNGS: There is no mass, infiltrate, or acute pulmonary abnormality. PLEURAL SPACES: No evidence of pleural effusion or pneumothorax. MEDIASTINUM: Prior sternotomy. Cardiac size and mediastinal contours within normal limits. BONES: No acute osseous abnormality. IMPRESSION: No acute cardiopulmonary pathology is evident. /[place]
[2025-01-28] MEDS: LACTATED RINGERS 1000ML IV STA (23:27)
[2025-01-29 00:18] VITALS: BP 107/63; PULSE 63; RESP 18; TEMP 98.6; O2SAT 100
--- NOTE | 2025-01-29 06:36 | EKG ---
[facility] Test Date: 2025-01-28 Test Time: 21:18:15 Pat Name: BRUCE LEBRON Department: ED Room: Gender: M Director Of Casework Services: [facility] : 1955 Requested By: CHRISTOPHER KHAN Order Number: [id number] Reading MD: Sofia Quinones Measurements Intervals [place] Rate: 72 P: 20 AR: 157 QRS: 54 QRSD: 99 T: 109 QT: 395 QTc: 432 Interpretive Statements Sinus rhythm Repol abnrm suggests ischemia, lateral leads Compared to ECG 01/07/2025 14:42:52 Early repolarization now present Possible ischemia now present Ventricular premature complex(es) no longer present Electronically Signed On 01-30-2025 14:12:17 CDT by Sofia Quinones Please click the below link to view image of tracing.
== END 2025-01-29 00:22 | disposition home or self-care (01) ==
LOC: EDH 21:19
DX: E86.0 Dehydration (principal); E11.9 Type 2 diabetes mellitus without complications; E78.00 Pure hypercholesterolemia, unspecified; I10 Essential (primary) hypertension; Z79.02 Long term (current) use of antithrombotics/antiplatelets; Z79.82 Long term (current) use of aspirin; Z79.899 Other long term (current) drug therapy; Z88.5 Allergy status to narcotic agent; Z95.1 Presence of aortocoronary bypass graft; Z95.5 Presence of coronary angioplasty implant and graft
CPT/HCPCS: 99285; 96360; 71045; 82550; 84484; 80048; 83880; 85025; 81003; 36415; 93005; J7120

== ENCOUNTER 2025-04-28 12:36 | Emergency (ER) | payer OTHER ==
[~2025-04-28] VITALS: Ht 172.7 cm; Wt 102.1 kg
[~2025-04-28 12:36] MED LIST changes: -CLOP-31 PO; +EMPA25TA PO; -FURO20TA4 PO; +FURO40TA5 PO; +GLIP-302 PO; +HYDR-4068 PO; +METF-446 PO; +MUPI22OI2 TP; +NITR0.4T SL; +OMEP20CA12 PO; +PRAS10TA20 PO; +PRAS10TA9 PO; +RANO10005 PO; +SANTO TP; +SYMB8060 IH; +TIRZ10PE SQ
--- NOTE | 2025-04-28 13:09 | EKG ---
[facility] Test Date: 2025-04-28 Test Time: 12:39:27 Pat Name: BRUCE LEBRON Department: ED Room: Gender: M [employer]: [id number] : 1955 Requested By: GILBERT JIMENEZ Order Number: [id number] Reading MD: Sina Ibarra Measurements Intervals [place] Rate: 89 P: 25 MA: 170 QRS: 70 QRSD: 102 T: 105 QT: 389 QTc: 475 Interpretive Statements Sinus rhythm Inferior infarct, old Nonspecific T abnormalities, lateral leads Compared to ECG 04/13/2025 19:30:24 No significant changes Electronically Signed On 04-28-2025 14:28:28 CDT by Sina Ibarra Please click the below link to view image of tracing.
[2025-04-28 13:21] LABS: IMMATURE GRANULOCYTE ABSOLUTE 0.04 K/uL (0-1); NUCLEATED RED BLOOD CELLS 0.0 % (0.0-0.19); PLATELET COUNT (AUTO) 127 K/uL (130-400); RED BLOOD CELL COUNT(AUTO) 4.30 MIL/uL (4.50-6.20); RED CELL DISTRIBUTION WIDTH 12.6 % (11.0-15.5); WHITE BLOOD COUNT (AUTO) 5.0 K/uL (4.8-10.8)
[2025-04-28 13:29] LABS: CREATININE 1.6 mg/dL (0.5-1.3); GLOMERULAR FILTR. RATE CALC 47.0 mL/min (>90); GLUCOSE,RANDOM 324.0 mg/dL (70-105); SODIUM SERUM 136.0 mmol/L (136-145); UREA NITROGEN, BLOOD 36.0 mg/dL (7-18)
--- NOTE | 2025-04-28 13:31 | HMCIMG ---
EXAM: CR Chest, 1 View. CLINICAL HISTORY: cp COMPARISON: None provided. FINDINGS: LUNGS: There is no mass, infiltrate, or acute pulmonary abnormality. PLEURAL SPACES: No pleural effusion or pneumothorax. MEDIASTINUM: Prior sternotomy.Cardiac size and mediastinal contours within normal limits. BONES: No aggressive appearing osseous lesion seen. IMPRESSION: No acute cardiopulmonary pathology is evident. /[place]
[2025-04-28 13:34] LABS: ASPARTATE AMINOTRANSFERASE 11.0 U/L (10-37); TOTAL PROTEIN, SERUM 7.4 g/dL (6.0-8.3)
[2025-04-28 14:40] VITALS: BP 110/75; PULSE 75; RESP 15; TEMP 98.1; O2SAT 97
--- NOTE | 2025-04-28 15:05 | ERN ---
ED Note History of Present Illness Stated Complaint: CP Chief Complaint: Chest Pain Time Seen by MD: 12:42 Dictation: 70-year-old male presenting to emergency department with intermittent chest pain history of CABG and stents patient reports symptoms have improved upon arrival Allergies: Coded Allergies: tramadol (Unverified Allergy, Mild, RASH, 10/07/24) metformin (Verified Allergy, Unknown, 05/27/20) STATES NOT ALLERGIC TO MEDICATION, TAKES MEDICATION DAILY Home Meds Active Scripts Sacubitril/Valsartan (Entresto 24 mg-26 mg Tablet) 24 Mg-26 Mg Tablet, 0.5 EACH PO BID, #60 TAB 2 Refills Prov:OPAL GELLER 02/09/25 Prasugrel HCl (Effient) 10 Mg Tablet, 10 MG PO DAILY, #30 TAB 1 Refill Prov:LALO RUSSELL 02/09/25 Furosemide (Furosemide) 40 Mg Tablet, 1 TAB PO DAILY for 30 Days, #30 TAB 0 Refills Prov:LALO RUSSELL 02/09/25 Spironolactone (Spironolactone) 25 Mg Tablet, 0.5 TAB PO DAILY for 90 Days, #90 TAB 3 Refills Prov:LALO RUSSELL 02/09/25 Sacubitril/Valsartan (Entresto 24 mg-26 mg Tablet) 24 Mg-26 Mg Tablet, 0.5 TAB PO BID for 90 Days, #180 TAB 3 Refills Prov:LALO RUSSELL 02/09/25 Aspirin (Aspirin EC) 81 Mg Tablet.dr, 1 TAB PO DAILY for 100 Days, #100 TAB 3 Refills Prov:OLIVIA MURILLO MD 10/30/24 Metoprolol Succinate (Metoprolol Succinate) 50 Mg Tab.er.24h, 50 MG PO DAILY for 90 Days, #90 TAB 3 Refills Prov:OLIVIA MURILLO MD 10/30/24 Atorvastatin Calcium (LIPITOR) 40 Mg Tablet, 40 MG PO HS for 90 Days, #90 TAB 3 Refills Prov:OLIVIA MURILLO MD 10/30/24 [place]-3 Fatty Acids/Fish Oil (Eql Fish Oil 1,000 mg Softgel) 300 Mg-1,000 Mg Capsule, 1000 MG PO BID, #60 CAP Prov:IRMA GUNN PA 10/15/24 Fenofibrate (Tricor) 48 Mg Tab, 48 MG PO HS, #30 TAB 3 Refills Prov:IRMA GUNN PA 10/15/24 Albuterol Sulfate (Ventolin Hfa/Proventil Hfa/Proair Hfa) 90 Mcg Puff, 2 PUFF IH Q4H for WHEEZING, #1 INHALER 0 Refills Prov:KEERTHI LOCKWOOD ORIENTOR 01/30/24 Fluticasone Propionate (Flonase Nasal [place]) 50 Mcg/Actuation [place], 1 MCG NASAL DAILY, #15 SPRAY Prov:ORESTES LYONS V JOY OPERATOR 08/04/23 Reported Medications Glipizide (Glipizide ER) 10 Mg Tab.er.24, 1 TAB PO DAILY 02/07/25 Budesonide/Formoterol Fumarate (Symbicort 80/4.5 Inhaler) 80 Mcg-4.5 Mcg/Actuation Puff, 1 PUFF IH Q4PRN, INH 02/07/25 Collagenase (Santyl Oint) 250 Unit/Gram Oint, 1 APPL TP DAILY for 30 Days, #90 GM 0 Refills 02/07/25 Ranolazine (Ranolazine ER) 1,000 Mg Tab.er.12h, 1 TAB PO BID for 30 Days, #60 TAB 0 Refills 02/07/25 Prasugrel HCl (Prasugrel HCl) 10 Mg Tablet, 1 TAB PO DAILY for 30 Days, #30 TAB 0 Refills 02/07/25 Omeprazole (Omeprazole) 20 Mg Capsule.dr, 1 CAP PO DAILY for 30 Days, #30 CAP 0 Refills 02/07/25 Nitroglycerin (Nitrostat) 0.4 Mg Tab.subl, 0.4 MG SL AD, TAB.SL 02/07/25 Mupirocin (Mupirocin Ointment) 2 % Oint, 1 APPL TP TID for 7 Days, #22 GM 0 Refills apply to affected area(s) 02/07/25 Tirzepatide (Mounjaro) 10 Mg/0.5 Ml Pen.injctr, 10 MG SQ QWEEK 02/07/25 Metformin HCl (Metformin HCl) 1,000 Mg Tablet, 1 TAB PO BID for 30 Days, #60 TAB 0 Refills 02/07/25 Empagliflozin (Jardiance) 25 Mg Tablet, 25 MG PO AM, TAB 02/06/25 Hydrocodone/Acetaminophen (Hydrocodon-Acetaminophn 10-325) 10 Mg-325 Mg Tablet, 1 TAB PO TIDP PRN for pain for 30 Days, #90 TAB 0 Refills 02/06/25 Trazodone HCl (Trazodone HCl) 50 Mg Tablet, 50 MG PO HS PRN for INSOMNIA, TAB 05/19/19 Montelukast Sodium (Montelukast Sodium) 10 Mg Tablet, 10 MG PO HS, TAB 10/16/16 Past Medical History Past Medical History: CAD, COPD, Diabetes-Type II, High Cholesterol, Heart Disease, Hypertension, [place], Other Additional Past Medical Hx: SPIDER BITE L LEG Surgical History: CABG, Other Surgical History Other: CARDIAC STENTS; QUINTUPLE BYPASS Family History: Negative Social History: Negative, Other Review of System Dictation Constitutional: Negative for fever,chills, and weight loss Eyes: Negative for injury, pain,redness, and discharge ENT: Negative for injury,pain or swelling Cardiovascular: Per HPI Respiratory: Negative for shortness of breath, cough, and wheezing, Abdomen/GI: Negative for abdominal pain, nausea, vomiting, diarrhea, and constipation Back: Negative for injury and pain : Negative for injury, bleeding and discharge MS/Extremity: Negative for injury and deformity Skin: Negative for rash, and discoloration Neuro: Negative for headache, weakness, numbness, tingling, and seizure Initial Vital Sign VS Vital Signs Date Time Temp Pulse Resp B/P (MAP) Pulse Ox O2 Delivery O2 Flow Rate FiO2 04/28/25 12:52 98.1 86 14 146/83 95 Room Air* 0 21 Physical Exam Dictation General: awake, alert, NAD Head/Face: Normocephalic, atraumatic Eyes: PERRL, EOMI, vision at baseline ENT: oral cavity clear, TMs clear, no signs of infection Neck: Trachea midline, supple, no nuchal rigidity Cardiovascular: RRR, normal S1/S2, No MRGs, no JVD Respiratory: CTAB, no respiratory distress, No rales or wheezes Abdomen: Soft, non-tender, non-distended, normal bowel sounds, no guarding or rebound. Skin: Warm, dry, normal turgor, no rash MS/Extremity: Pulses equal, no cyanosis, neurovascular intact, FROM Neuro: COAx4, GCS 15, strength 5/5, CN 2-12 intact, normal cerebellar exam, normal gait, Psych: Normal behavior, mood, and affect normal Results (Laboratory/Radiology) Laboratory/Radiology Laboratory Tests Test 04/28/25 12:53 White Blood Count 5.0 K/uL (4.8-10.8) Red Blood Count 4.30 MIL/uL (4.50-6.20) L Hemoglobin 13.5 g/dL (14.0-18.0) L Hematocrit 39.7 % (42-54) L Mean Corpuscular Volume 92.3 fL (79-99) Mean Corpuscular Hemoglobin 31.4 pg (27.0-33.0) Mean Corpuscular Hemoglobin Concent 34.0 g/dL (32.0-36.0) Red Cell Distribution Width 12.6 % (11.0-15.5) Platelet Count 127 K/uL (130-400) L Mean Platelet Volume 11.9 fL (7.5-10.5) H Immature Granulocyte % (Auto) 0.8 % (0-1) Neutrophils (%) (Auto) 59.3 % (40.0-77.0) Lymphocytes (%) (Auto) 29.4 % (21.0-51.0) Monocytes (%) (Auto) 7.1 % (3.0-13.0) Eosinophils (%) (Auto) 2.6 % (0.0-8.0) Basophils (%) (Auto) 0.8 % (0.0-5.0) Neutrophils # (Auto) 3.0 K/uL (1.8-7.7) Lymphocytes # (Auto) 1.5 K/uL (1.0-4.8) Monocytes # (Auto) 0.4 K/uL (0.1-1.0) Eosinophils # (Auto) 0.13 K/uL (0.00-0.70) Basophils # (Auto) 0.04 K/uL (0.00-0.20) Absolute Immature Granulocyte (auto 0.04 K/uL (0-1) Nucleated Red Blood Cells 0.0 % (0.0-0.19) Sodium Level 136 mmol/L (136-145) Potassium Level 4.6 mmol/L (3.5-5.1) Chloride Level 101 mmol/L (101-111) Carbon Dioxide Level 24 mmol/L (21-32) Blood Urea Nitrogen 36 mg/dL (7-18) H Creatinine 1.6 mg/dL (0.5-1.3) H Glomerular Filtration Rate Calc 47 mL/min (>90) Random Glucose 324 mg/dL (70-105) H Total Calcium 8.6 mg/dL (8.5-10.1) Total Bilirubin 0.4 mg/dL (0.2-1.0) Direct Bilirubin 0.1 mg/dL (0.0-0.3) Aspartate Amino Transf (AST/SGOT) 11 U/L (10-37) Alanine Aminotransferase (ALT/SGPT) 15 U/L (12-78) Alkaline Phosphatase 104 U/L (50-136) Troponin I High Sensitivity 20 ng/L (4-75) B-Type Natriuretic Peptide 76 pg/mL (0-100) Total Protein 7.4 g/dL (6.0-8.3) Albumin 3.8 g/dL (3.5-5.0) Labs Reviewed?: Yes EKG Comment: Heart rate 89 normal sinus rhythm inferior Q-waves no STEMI ED Course ED Course Orders Procedure Category Date Status Time B-Type Natriuretic LAB 04/28/25 Complete Peptide 12:42 12 Lead Ekg Tracing- EKG 04/28/25 Resulted Technical 12:42 Basic Metabolic Panel LAB 04/28/25 Complete 12:42 Cbc With Differential LAB 04/28/25 Complete 12:42 Hepatic Function Panel LAB 04/28/25 Complete 12:42 Troponin I High LAB 04/28/25 Complete Sensitivity 12:42 Chest 1vw RAD 04/28/25 Resulted 12:42 Vital Signs Date Time Temp Pulse Resp B/P (MAP) Pulse Ox O2 Delivery O2 Flow Rate FiO2 04/28/25 14:40 98.1 75 15 110/75 97 Room Air* 0 21 04/28/25 12:52 98.1 86 14 146/83 95 Room Air* 0 21 Medical Decision Making MDM MDM: Differential diagnosis: Rationale: Tests considered and ordered secondary to shared decision making include: labs, ECG and radiology Previous outside records reviewed: Old ER visits. Risk of complication and/or morbidity or mortality of patient management: None Medications-Per medication reconciliation Need for hospitalization: Patient does meet criteria for hospitalization. Need for emergency major/minor surgery: No There are no social concerns with this patient. Prescription drug management Prescriptions will include symptomatic care Patient's prior external medical records from other ER visits were reviewed by me as indicated. Prior testing and results from previous visits were reviewed. Prior tests were taken into account with medical decision making and resource utilization, independent historian/historians were used to obtain complete medical history. I independently interpreted the test that were performed, results were reviewed by me and considered findings on radiology if ordered. Medical management and examination interpretation discussions were had by me with other qualified healthcare professionals as indicated for the patient's care. 70-year-old male with atypical chest pain but high risk factors heart score of six advised admission however patient says he wants to go home would not allow for repeat troponin left AMA advised to return if worse or if he changes mind about additional workup DX & DISP Disposition: AMA Departure Impression: Primary Impression: Coronary artery disease Additional Impression: Chest pain Condition: Stable Referrals: EDVIN FUNES MD (PCP) GILBERT JIMENEZ MD Apr 28, 2025 15:05
--- NOTE | 2025-04-28 15:13 | NUR ---
AMA PATIENT LEFT AMA UNDER DR JIMENEZ'S RECOMMENDATIONS I DC'D PATIENTS IV WITH CATH STILL INTACT AND APPLIED 2X2 GAUZE WITH COBAN I EXPLAINED TO PATIENT TO FOLLOW UP WITH PCP PATIENT AMBULATED OUT OF ED, NO COMPLICATIONS
== END 2025-04-28 15:07 | disposition left against medical advice (07) ==
LOC: EDH 12:36
DX: I25.10 Atherosclerotic heart disease of native coronary artery without angina pectoris (principal); R07.89 Other chest pain; E11.9 Type 2 diabetes mellitus without complications; E78.00 Pure hypercholesterolemia, unspecified; I11.9 Hypertensive heart disease without heart failure; I25.2 Old myocardial infarction; J44.9 Chronic obstructive pulmonary disease, unspecified; Z79.02 Long term (current) use of antithrombotics/antiplatelets; Z79.51 Long term (current) use of inhaled steroids; Z79.82 Long term (current) use of aspirin; Z79.84 Long term (current) use of oral hypoglycemic drugs; Z79.85 Long-term (current) use of injectable non-insulin antidiabetic drugs; Z79.899 Other long term (current) drug therapy; Z88.5 Allergy status to narcotic agent; Z95.1 Presence of aortocoronary bypass graft; Z95.5 Presence of coronary angioplasty implant and graft
CPT/HCPCS: 36415; 71045; 80048; 80076; 83880; 84484; 85025; 93005; 99285

== ENCOUNTER 2025-05-01 21:11 | Emergency (ER) | payer OTHER ==
[~2025-05-01] VITALS: Ht 177.8 cm; Wt 158.8 kg
[2025-05-01] MEDS ORDERED: ATROPINE 1MG SYG IVP ONE (21:12)
[2025-05-01 21:15] VITALS: TEMP 98
[2025-05-01 21:30] VITALS: O2SAT 100
[2025-05-01] MEDS ORDERED: NOREPINEPHRIN 4MG/NS 250ML 250 ML IV ONE (21:47)
[2025-05-01 21:51] LABS: IMMATURE GRANULOCYTE ABSOLUTE 0.09 K/uL (0-1); NUCLEATED RED BLOOD CELLS 1.0 % (0.0-0.19); PLATELET COUNT (AUTO) 104 K/uL (130-400); RED BLOOD CELL COUNT(AUTO) 3.17 MIL/uL (4.50-6.20); RED CELL DISTRIBUTION WIDTH 12.7 % (11.0-15.5); WHITE BLOOD COUNT (AUTO) 5.8 K/uL (4.8-10.8)
[2025-05-01 22:00] VITALS: BP 0/0; PULSE 0; RESP 0; O2SAT 0
[2025-05-01 22:00] LABS: INR 1.19 (0.85-1.15)
[2025-05-01 22:17] LABS: ASPARTATE AMINOTRANSFERASE 10.0 U/L (10-37); CREATININE 2.0 mg/dL (0.5-1.3); GLOMERULAR FILTR. RATE CALC 36.0 mL/min (>90); SODIUM SERUM 147.0 mmol/L (136-145); TOTAL PROTEIN, SERUM 3.9 g/dL (6.0-8.3); UREA NITROGEN, BLOOD 32.0 mg/dL (7-18)
--- NOTE | 2025-05-01 22:19 | ERN ---
ED Note History of Present Illness Stated Complaint: CPR Chief Complaint: CPR/Full Arrest Time Seen by MD: 21:15 Dictation: This is a 70-year-old male morbidly obese with multiple medical problems apparently came in with his for evaluation of the chest pain. Off and on patient has been having chest pains for the past 1 week and he was evaluated on 04/28/2025 in the ER and preliminary workup was negative for cardiac enzymes and with a known history of coronary artery disease he was recommended admission to the hospital however patient left AMA per chart. 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 Once he arrived patient's slumped over. came running inside and sought help. Many nurses ran outside extricated him from the commercial driver side and was brought inside. Patient did not have a pulse and a code blue was alerted and CPR was initiated immediately. After exhaustive efforts, initially patient had a ROSC but required maximal doses of Levophed, epinephrine, dopamine drips along with IV fluids. Patient was intubated and placed on mechanical ventilator. Once ROSC was achieved, right femoral triple-lumen catheter was also placed with good blood return from all the 3 ports. Patient lost pulse again and CPR was re-initiated per ACLS protocol. Please see the code sheet for extensive details and timing of the medications and the events. I also did an emergent bedside echo and there was no cardiac activity. I updated the patient's spouse and had her come in to visit him and after 20 minutes of aggressive CPR, there was no return of the pulse and at this time I called the code and pronounced the patient at 10:00 p.m.. was at bedside. She was offered comfort, condolences and all the support that she needed. Eventually her daughter came in to assist her mother past medical history of hypertension, hyperlipidemia, DM type 2, alcohol use, tobacco use, drug abuse-cocaine and alcohol CAD s/p five-vessel CABG, and multiple cardiac stents Allergies: Coded Allergies: tramadol (Unverified Allergy, Mild, RASH, 10/07/24) metformin (Verified Allergy, Unknown, 05/27/20) STATES NOT ALLERGIC TO MEDICATION, TAKES MEDICATION DAILY Home Meds Active Scripts Sacubitril/Valsartan (Entresto 24 mg-26 mg Tablet) 24 Mg-26 Mg Tablet, 0.5 EACH PO BID, #60 TAB 2 Refills Prov:GELLEROPAL AGACNP 02/09/25 Prasugrel HCl (Effient) 10 Mg Tablet, 10 MG PO DAILY, #30 TAB 1 Refill Prov:LALO RUSSELL R PAC 02/09/25 Furosemide (Furosemide) 40 Mg Tablet, 1 TAB PO DAILY for 30 Days, #30 TAB 0 Refills Prov:LALO RUSSELL R [facility] 02/09/25 Spironolactone (Spironolactone) 25 Mg Tablet, 0.5 TAB PO DAILY for 90 Days, #90 TAB 3 Refills Prov:LALO RUSSELL R [facility] 02/09/25 Sacubitril/Valsartan (Entresto 24 mg-26 mg Tablet) 24 Mg-26 Mg Tablet, 0.5 TAB PO BID for 90 Days, #180 TAB 3 Refills Prov:SANIA RUSSELLHÉCTOR Lewis [facility] 02/09/25 Aspirin (Aspirin EC) 81 Mg Tablet.dr, 1 TAB PO DAILY for 100 Days, #100 TAB 3 Refills Prov:OLIVIA MURILLO MD 10/30/24 Metoprolol Succinate (Metoprolol Succinate) 50 Mg Tab.er.24h, 50 MG PO DAILY for 90 Days, #90 TAB 3 Refills Prov:OLIVIA MURILLO MD 10/30/24 Atorvastatin Calcium (LIPITOR) 40 Mg Tablet, 40 MG PO HS for 90 Days, #90 TAB 3 Refills Prov:OLIVIA MURILLO MD 10/30/24 Gaffney-3 Fatty Acids/Fish Oil (Eql Fish Oil 1,000 mg Softgel) 300 Mg-1,000 Mg Capsule, 1000 MG PO BID, #60 CAP Prov:IRMA GUNN [facility] 10/15/24 Fenofibrate (Tricor) 48 Mg Tab, 48 MG PO HS, #30 TAB 3 Refills Prov:IRMA GUNN [facility] 10/15/24 Albuterol Sulfate (Ventolin Hfa/Proventil Hfa/Proair Hfa) 90 Mcg Puff, 2 PUFF IH Q4H for WHEEZING, #1 INHALER 0 Refills Prov:KEERTHI LOCKWOOD CASE MANAGEMENT RN 01/30/24 Fluticasone Propionate (Flonase Nasal [place]) 50 Mcg/Actuation [place], 1 MCG NASAL DAILY, #15 SPRAY Prov:ORESTES LYONS V CASE MANAGEMENT RN 08/04/23 Reported Medications Glipizide (Glipizide ER) 10 Mg Tab.er.24, 1 TAB PO DAILY 02/07/25 Budesonide/Formoterol Fumarate (Symbicort 80/4.5 Inhaler) 80 Mcg-4.5 Mcg/Actuation Puff, 1 PUFF IH Q4PRN, INH 02/07/25 Collagenase (Santyl Oint) 250 Unit/Gram Oint, 1 APPL TP DAILY for 30 Days, #90 GM 0 Refills 02/07/25 Ranolazine (Ranolazine ER) 1,000 Mg Tab.er.12h, 1 TAB PO BID for 30 Days, #60 TAB 0 Refills 02/07/25 Prasugrel HCl (Prasugrel HCl) 10 Mg Tablet, 1 TAB PO DAILY for 30 Days, #30 TAB 0 Refills 02/07/25 Omeprazole (Omeprazole) 20 Mg Capsule.dr, 1 CAP PO DAILY for 30 Days, #30 CAP 0 Refills 02/07/25 Nitroglycerin (Nitrostat) 0.4 Mg Tab.subl, 0.4 MG SL AD, TAB.SL 02/07/25 Mupirocin (Mupirocin Ointment) 2 % Oint, 1 APPL TP TID for 7 Days, #22 GM 0 Refills apply to affected area(s) 02/07/25 Tirzepatide (Mounjaro) 10 Mg/0.5 Ml Pen.injctr, 10 MG SQ QWEEK 02/07/25 Metformin HCl (Metformin HCl) 1,000 Mg Tablet, 1 TAB PO BID for 30 Days, #60 TAB 0 Refills 02/07/25 Empagliflozin (Jardiance) 25 Mg Tablet, 25 MG PO AM, TAB 02/06/25 Hydrocodone/Acetaminophen (Hydrocodon-Acetaminophn 10-325) 10 Mg-325 Mg Tablet, 1 TAB PO TIDP PRN for pain for 30 Days, #90 TAB 0 Refills 02/06/25 Trazodone HCl (Trazodone HCl) 50 Mg Tablet, 50 MG PO HS PRN for INSOMNIA, TAB 05/19/19 Montelukast Sodium (Montelukast Sodium) 10 Mg Tablet, 10 MG PO HS, TAB 10/16/16 Past Medical History Past Medical History: CAD, COPD, Diabetes-Type II, High Cholesterol, Heart Dise ase, Hypertension, FL, Other Additional Past Medical Hx: SPIDER BITE L LEG Surgical History: CABG, Other Surgical History Other: CARDIAC STENTS; QUINTUPLE BYPASS Family History: Negative Social History: Drugs (History of cocaine abuse), Negative, Other RN Note Reviewed/Agreed w/PFSH: Yes Review of System Dictation Unable to obtain Initial Vital Sign VS Vital Signs Date Time Temp Pulse Resp B/P (MAP) Pulse Ox O2 Delivery O2 Flow Rate FiO2 05/01/25 21:11 0 0 0/0 CPAP+ 100 05/01/25 21:15 98.1 100 Physical Exam Dictation General: Unresponsive in full arrest, cold and diaphoretic Head/Face: Normocephalic, atraumatic Eyes: Pupils small ENT: oral cavity clear, small amount of foamy secretions Neck: Trachea midline, supple, no nuchal rigidity Cardiovascular: Bradycardiac arrest Respiratory: CTAB, no respiratory distress, No rales or wheezes Abdomen: Soft, non-tender, very obese, Skin: Warm, dry, normal turgor, no rash, mottling of the lower extremities MS/Extremity: Pulses equal, no cyanosis, neurovascuPsych: Normal behavior, mood, and affect normal Extremities-trace edema without any palpable cords, Homans sign is negative Results (Laboratory/Radiology) Laboratory/Radiology Laboratory Tests Test 05/01/25 21:43 White Blood Count 5.8 K/uL (4.8-10.8) Red Blood Count 3.17 MIL/uL (4.50-6.20) L Hemoglobin 9.9 g/dL (14.0-18.0) L Hematocrit 32.3 % (42-54) L Mean Corpuscular Volume 101.9 fL (79-99) H Mean Corpuscular Hemoglobin 31.2 pg (27.0-33.0) Mean Corpuscular Hemoglobin Concent 30.7 g/dL (32.0-36.0) L Red Cell Distribution Width 12.7 % (11.0-15.5) Platelet Count 104 K/uL (130-400) L Mean Platelet Volume 12.3 fL (7.5-10.5) H Immature Granulocyte % (Auto) 1.5 % (0-1) H Neutrophils (%) (Auto) 35.1 % (40.0-77.0) L Lymphocytes (%) (Auto) 54.5 % (21.0-51.0) H Monocytes (%) (Auto) 7.0 % (3.0-13.0) Eosinophils (%) (Auto) 1.4 % (0.0-8.0) Basophils (%) (Auto) 0.5 % (0.0-5.0) Neutrophils # (Auto) 2.1 K/uL (1.8-7.7) Lymphocytes # (Auto) 3.2 K/uL (1.0-4.8) Monocytes # (Auto) 0.4 K/uL (0.1-1.0) Eosinophils # (Auto) 0.08 K/uL (0.00-0.70) Basophils # (Auto) 0.03 K/uL (0.00-0.20) Absolute Immature Granulocyte (auto 0.09 K/uL (0-1) Nucleated Red Blood Cells 1.0 % (0.0-0.19) H Red Blood Cell Morphology See comments Prothrombin Time 12.4 SEC (9.6-11.6) H Prothromb Time International Ratio 1.19 (0.85-1.15) H Activated Partial Thromboplast Time 65.2 SEC (26.3-35.5) H Sodium Level 147 mmol/L (136-145) H Potassium Level 4.3 mmol/L (3.5-5.1) Chloride Level 107 mmol/L (101-111) Carbon Dioxide Level 16 mmol/L (21-32) L Blood Urea Nitrogen 32 mg/dL (7-18) H Creatinine 2.0 mg/dL (0.5-1.3) H Glomerular Filtration Rate Calc 36 mL/min (>90) Random Glucose 500 mg/dL (70-105) *H Lactic Acid Level 13.3 mmol/L (0.8-2.5) H Total Calcium 8.7 mg/dL (8.5-10.1) Total Bilirubin 0.4 mg/dL (0.2-1.0) Aspartate Amino Transf (AST/SGOT) 10 U/L (10-37) Alanine Aminotransferase (ALT/SGPT) 9 U/L (12-78) L Alkaline Phosphatase 56 U/L (50-136) Troponin I High Sensitivity 63 ng/L (4-75) Total Protein 3.9 g/dL (6.0-8.3) L Albumin 1.8 g/dL (3.5-5.0) L Labs Reviewed?: Yes EKG Comment: We could not obtain a 12 lead EKG but only monitored his rhythm on tele and the crash cart as documented in the code note ED Course ED Course Orders Procedure Category Date Status Time Dopamine Hcl 400 PHA 05/01/25 Complete Mg/D5%-Water (Intropin 21:28 Cbc With Differential LAB 05/01/25 Complete 21:45 Comprehensive LAB 05/01/25 Complete Metabolic Panel 21:45 Troponin I High LAB 05/01/25 Complete Sensitivity 21:45 Lactic Acid LAB 05/01/25 Complete 21:45 Pt And Ptt LAB 05/01/25 Complete 21:45 Norepinephrin 4mg/Ns PHA 05/01/25 Complete 250ml (Levophed 4mg 21:47 Atropine 1mg Syg PHA 05/01/25 Complete (Atropine 1mg Syg) 21:12 Cacl 1gm Syg (Calcium PHA 05/01/25 Complete Chloride 1g Syg) 21:12 Dopamine Hcl 400 PHA 05/01/25 Complete Mg/D5%-Water (Intropin 21:12 Epinephrine PHA 05/01/25 Complete 1mg/10ml(1:10,000) 21:12 Norepinephrine PHA 05/01/25 Complete Bitartrate 21:12 Sodium Bicarb 8.4% PHA 05/01/25 Complete 50ml Syring (Sodium B 21:12 Amiodarone 150mg Vial PHA 05/01/25 Complete (Cordarone 150mg V 21:12 Atropine 1mg Syg PHA 05/01/25 Complete (Atropine 1mg Syg) 21:12 Cacl 1gm Syg (Calcium PHA 05/01/25 Complete Chloride 1g Syg) 21:12 Dextrose 50%-Water PHA 05/01/25 Complete (D50w) 21:12 Dopamine Hcl 400 PHA 05/01/25 Complete Mg/D5%-Water (Intropin 21:12 Epinephrine PHA 05/01/25 Complete 1mg/10ml(1:10,000) 21:12 Magnesium Sulfate PHA 05/01/25 Complete (Magnesium Sulfate) 21:12 Sodium Bicarb 8.4% PHA 05/01/25 Complete 50ml Syring (Sodium B 21:12 Current Medications Medications (Trade) Dose Ordered Sig/Chelita Route PRN Reason Start Time Stop Time Status Last Admin Dose Admin Amiodarone HCl (cordARONE 150MG VIAL) 150 mg STK-MED ONCE IV 05/01/25 21:12 05/02/25 11:30 DC Atropine Sulfate (Atropine 1mg Syg) 1 mg STK-MED ONCE IVP 05/01/25 21:12 05/02/25 11:27 DC Atropine Sulfate (Atropine 1mg Syg) 1 mg STK-MED ONCE IVP 05/01/25 21:12 05/02/25 11:30 DC Calcium Chloride (Calcium Chloride 1g Syg) 1,000 mg STK-MED ONCE IVP 05/01/25 21:12 05/02/25 11:27 DC Calcium Chloride (Calcium Chloride 1g Syg) 1,000 mg STK-MED ONCE IVP 05/01/25 21:12 05/02/25 11:30 DC Dextrose (D50w) 50 ml STK-MED ONCE IV 05/01/25 21:12 05/02/25 11:30 DC Dopamine HCl/ Dextrose 250 ml @ As Directed STK-MED ONCE IV 05/01/25 21:12 05/02/25 11:27 DC Dopamine HCl/ Dextrose 250 ml @ As Directed STK-MED ONCE IV 05/01/25 21:12 05/02/25 11:30 DC Dopamine HCl/ Dextrose 250 ml @ As Directed STK-MED ONCE IV 05/01/25 21:28 05/01/25 21:27 DC Epinephrine HCl (ADRENaline 1MG SYG) 1 mg STK-MED ONCE IVP 05/01/25 21:12 05/02/25 11:27 DC Epinephrine HCl (ADRENaline 1MG SYG) 1 mg STK-MED ONCE IVP 05/01/25 21:12 05/02/25 11:30 DC Magnesium Sulfate (Magnesium Sulfate) 1 gm STK-MED ONCE IM 05/01/25 21:12 05/02/25 11:30 DC Norepinephrine 250 ml @ As Directed STK-MED ONCE IV 05/01/25 21:47 05/01/25 21:47 DC Norepinephrine Bitartrate (Norepinephrine Bitartrate) 1 mg STK-MED ONCE IV 05/01/25 21:12 05/02/25 11:27 DC Sodium Bicarbonate (Sodium Bicarb) 50 meq STK-MED ONCE IVP 05/01/25 21:12 05/02/25 11:27 DC Sodium Bicarbonate (Sodium Bicarb) 50 meq STK-MED ONCE IVP 05/01/25 21:12 05/02/25 11:30 DC Vital Signs Date Time Temp Pulse Resp B/P (MAP) Pulse Ox O2 Delivery O2 Flow Rate FiO2 05/01/25 22:00 0 0 0/0 0 ETT Piece+ 100 05/01/25 21:30 100 05/01/25 21:15 98.1 80 18 80/60 100 ETT Piece+ 100 05/01/25 21:11 0 0 0/0 CPAP+ 100 Medical Decision Making MDM Differential diagnosis: Acute FL, medication effect, pulmonary thromboembolic disease, conduction system abnormality, electrolyte abnormalities, acidosis, polysubstance abuse/cocaine related cardiac event CPR details Initial start 9:01 p.m..-patient was in asystole received epinephrine bicarbonate atropine at 9:05 p.m. when patient was noted to be in bradycardia. Patient received IV fluids bicarbonate and calcium via emergent left humerus IO and left lower extremity I okay. Patient also had emergent IV access placed in right hand. Patient received additional high dose atropine at 9:08 p.m. for per sistent bradycardia. He was started on Levophed and dopamine drips and additional bicarb given. At 9:09 p.m. patient went into asystole again and CPR was resumed consistently throughout per ACLS protocol. Additional epinephrine and atropine were given and patient was externally paced. Rogers was achieved at 9:11 p.m. and patient was continued on dopamine drip along with Levophed. At 9:15 p.m. patient's blood pressure was 80/60 his paced rhythm was 80 and patient was successfully intubated with a 7.5 ET tube at 23 cm at the lip. 9:20 p.m. patient received hydrocortisone and at 9:23 p.m. patient had central line placed in the right femoral area. As patient was stabilized at 9:39 p.m. patient went into asystole and transiently at 9:45 p.m. was in VFib and he was shocked with 200 joules. Throughout ACLS protocol was used continuation of CPR compressions as well as epinephrine and additional bicarbonate magnesium and calcium were also given. Patient remained in asystole. During this time labs were also sent and emergency bedside echo was done and there was no cardiac movement who has a cardiac stents still. At 10:00 p.m. after I updated the patient's spouse and had her come in and visit the patient, I called the code and pronounced the patient at 10:00 p.m.. Procedure Central Line Lumen: triple Central Line Procedure: no betadine prepno sterile drapes appliedno sterile dressing applied Central Line Postion: femoral (R) anesthesia: Lidocaine Volume Anesthetic (cc): 5 Complications: none Central Line Post Position: sutured, good blood return Progress Procedure [id number] catheter placement Indication-cardiac arrest and cardiogenic shock Performing physician-Dr. Campuzano Premedication and anesthesia- 1% lidocaine local Procedure-procedure was deemed emergent and verbal consent was obtained from the patient's daughter Maria Alejandra. After an appropriate time-out and pause, patient's right femoral area was prepped and draped in a sterile fashion using modified Seldinger technique right femoral vein was cannulated and a guidewire was advanced. Subsequently using the dilator and skin incision at the site of insertion a tract was created and a triple-lumen catheter was advanced over the guidewire with removal of the guidewire. Excellent blood return from all 3 ports was noted. Ports were flushed and the catheter was sutured to skin in place. The antibiotic disc was placed at the insertion site and dressing was applied. No immediate complications. Patient tolerated the procedure extremely well Recommendations to monitor the femoral site and once the hemodynamics improve, to consider removal of the triple-lumen catheter to avoid complications. Intubation Method: orotracheal Tube Size (cm): 7.5 Breath Sounds after Intubation: equal Intubation Complications: no complications Progress Procedure note-endotracheal intubation Indication for the procedure- cardiac arrest cardiogenic shock Premedication and anesthesia-none and CPR was in progress Performing physician-Regina TREJOCP Procedure-deemed emergent during the code and after time-out and pause, 7.5 ET tube was advanced into the trachea after well visualization of the vocal cords under glide scope MAC 3 blade guidance. Bedside confirmation was done with good breath sounds bilaterally to auscultation and excellent color change on the capnometer. ET tube was secured in place Postprocedure chest [id number] Recommendations-patient placed on mechanical ventilator-discussed settings with the RT Problem List Problem List: (1) Cardiac arrest (2) Cardiogenic shock (3) Bradycardic cardiac arrest (4) Coronary artery disease (5) Diabetes mellitus with hyperglycemia (6) Cocaine abuse (7) Hypertriglyceridemia Critical Care Note Critical Time: 45 minutes Comment(s) Life-threatening illness; cardiac arrest, severe bradycardia, known coronary artery disease, cardiogenic shock Risk of morbidity mortality-high Complexity of medical decision making-high (X) high probability of sudden clinically significant deterioration in the patient's condition required the highest level of my preparedness to intervene urgently. I provided critical care services requiring my direct and personal management as noted below; (x) chart data review (x) reviewing nurse's notes and/charts (x) documentation time (x) consultation collaboration on findings and therapy options (x) medication orders and management (x) re-evaluations (x) care, transfer of care, and discharge plans (x) ordering and interpreting studies (x) ordering and reviewing labs (x) obtaining necessary history from family, EMS, senior living, private MD, surrogate decision makers because patient was unable to give history due to limitations in the mental status (x) aggregate critical care time was ( 45 ) minutes. This includes only time during which I was engaged in work directly related to the patient's care as described above whether at the bedside or elsewhere in the ER while the patient was critical. My time did not include minutes spent treating any other patients simultaneously or on activities that did not directly contribute to the patient's treatment. It did not include time spent performing other reported procedures or services of residents if any. Regina TREJOCP DX & DISP Disposition: Decision to Admit Time: 10:00 Departure Impression: Primary Impression: Cardiac arrest Additional Impressions: Bradycardic cardiac arrest, Coronary artery disease, Cardiogenic shock Condition: Additional Instructions: pronouncement After exhaustive and heroic efforts of CPR per ACLS protocol, the 2nd time that the patient arrested, ROSC could not be achieved and patient was pronounced at 10:00 p.m. on 05/01/2025 On exam Patient was unresponsive to any commands Pupils are mid dilated nonreactive Patient is cold to touch and mottled No spontaneous rhythm No spontaneous respirations No spontaneous movements. Time of 10:00 p.m. on 05/01/2025 Cause of -cardiac arrest secondary to known severe coronary artery disease. Other contributing causes-diabetes mellitus, hypertension, hypertriglyceridemia, morbid obesity, polysubstance abuse including cocaine Patient's spouse declined autopsy Referrals: EDVIN FUNES MD (PCP) REGINA CAMPUZANO MD May 01, 2025 22:19
[2025-05-01 22:23] LABS: GLUCOSE,RANDOM 500.0 mg/dL (70-105)
--- NOTE | 2025-05-01 22:30 | NUR ---
PATIENT SPOUSE AND DAUGHTER AT BEDSIDE, PATIENT SPOUSE GIVEN PATIENT BELOGNINGS TO INCLUDE CLOTHING AND WALLET, PATIENT SPOUSE ASKED ABOUT AUTOPSY, PATIENT SPOUSE ARIANNE LEBRON DECLINED AUTOPSY. HOME CHOOSEN WAS GOOD [facility] [phone].
--- NOTE | 2025-05-01 23:22 | NUR ---
[facility] CALLED, SPOKE TO SEBASTIAN PRO, REFERENCE NUMBER [phone]. PER [facility], DO NOT RELEASE BODY UNTIL HEARING BACK [facility].
--- NOTE | 2025-05-02 00:17 | NUR ---
[facility] WILL FOLLOW UP WITH [facility] IN AM
== END 2025-05-01 22:00 ==
LOC: EDH 21:11
DX: I46.9 Cardiac arrest, cause unspecified (principal); J44.9 Chronic obstructive pulmonary disease, unspecified; R57.0 Cardiogenic shock; I25.10 Atherosclerotic heart disease of native coronary artery without angina pectoris; E11.9 Type 2 diabetes mellitus without complications; E78.00 Pure hypercholesterolemia, unspecified; F14.10 Cocaine abuse, uncomplicated; I11.9 Hypertensive heart disease without heart failure; I25.2 Old myocardial infarction; Z79.02 Long term (current) use of antithrombotics/antiplatelets; Z88.5 Allergy status to narcotic agent; Z79.85 Long-term (current) use of injectable non-insulin antidiabetic drugs; Z79.84 Long term (current) use of oral hypoglycemic drugs; Z79.82 Long term (current) use of aspirin; Z79.899 Other long term (current) drug therapy; Z79.51 Long term (current) use of inhaled steroids; Z95.1 Presence of aortocoronary bypass graft; Z95.5 Presence of coronary angioplasty implant and graft
CPT/HCPCS: 36556; 92960; 36680; 84484; 80053; 85025; 85610; 85730; 83605; 36415; 99291; 92950; 31500; J3490 ×6; J7070; J0169 ×2; J3475; J0461 ×2; J1265 ×3; J0282; A9900; 94002